=== PATIENT | female | born 1965 | race Caucasian/White ===

== ENCOUNTER 2024-10-16 11:56 | Emergency (ER) | payer OTHER, SELFPAY ==
[2024-10-16 11:57] VITALS: BMI 31.4
[2024-10-16 12:04] VITALS: BP 151/86; PULSE 89; RESP 20; TEMP 36.6; O2SAT 99; BMI 32.3
--- NOTE | 2024-10-16 12:07 | EKG_ITS ---
[facility] Test Date: 2024-10-16 Pat Name: ARINA RILEY Department: Room: - Gender: Female Police Inspector: : 1965 Requested By: Galo Flower (SAMUEL) Order Number: [id number] Reading MD: Galo Flower (TOE FORMER) Measurements Intervals Thompson Rate: 80 P: 76 CA: 208 QRS: 57 QRSD: 85 T: 59 QT: 387 QTc: 448 Interpretive Statements SINUS RHYTHM No previous ECG available for comparison /store/S0/[id number]/ecg/[id number].pdf
--- NOTE | 2024-10-16 12:07 | XR_ITS ---
Examination: PA lateral chest 2 views TECHNIQUE: Upright PA lateral chest 2 views Exam date and time: October 16, 2024 1233 hours Comparison 08/04/2022 INDICATIONS: Chest pain beginning 2 days ago. FINDINGS: Normal heart size Lungs are clear. The osseous structures are intact IMPRESSION: No active disease
--- NOTE | 2024-10-16 12:08 | PD.EDRME ---
Rapid Medical Screening Exam RME Arrival date/time: 10/16/24 11:56 59-year-old female presents to the emergency department complaints of abdominal pain and chest pain Chief Complaint: Chest Pain Time Seen by Provider: 10/16/24 12:05 Vital signs: Vital Signs Temperature 97.8 F 10/16/24 12:04 Pulse Rate 89 10/16/24 12:04 Respiratory Rate 20 10/16/24 12:04 Blood Pressure 151/86 H 10/16/24 12:04 Pulse Oximetry (%) 99 10/16/24 12:04 Oxygen Delivery Method Room Air 10/16/24 12:04
[2024-10-16] MEDS: ONDANSETRON ODT 4 MG TABRAP PO ×2 (12:18→15:53)
[2024-10-16 12:35] LABS: Basophils % (Auto) 0 % (0-2.5); Eosinophils % (Auto) 0 % (0-10); Hematocrit 44.6 % (36.0-46.0); Hemoglobin 15.3 g/dL (12.0-16.0); Immature Granulocytes % (Auto) 0 % (0-0); Immature Granulocytes Auto 0.07 Thou/mm3 (0.00-0.00); Lymphocytes # (Auto) 1.7 Thou/mm3 (1.0-4.8); Lymphocytes % (Auto) 11 % (10-50); Mean Corpuscular HGB Conc 34.3 g/dl (31.0-37.0); Mean Corpuscular Hemoglobin 30.1 pg (25.0-35.0); Mean Corpuscular Volume 88 fL (80-100); Monocytes # (Auto) 0.9 Thou/mm3 (0.0-0.8); Monocytes % (Auto) 6 % (0-12); Neutrophils # (Auto) 13.7 Thou/mm3 (1.8-7.7); Neutrophils % (Auto) 83 % (37-80); Nucleated Red Blood Cell % 0 /100 WBC (0); Platelet Count 294 Thou/mm3 (140-440); RDW Standard Deviation 42.5 fL (36.4-46.3); Red Blood Count 5.09 Miln/mm3 (4.00-5.20); White Blood Count 16.5 Thou/mm3 (3.6-11.0)
[2024-10-16 12:53] LABS: INR 1.1 (0.9-1.3); Partial Thromboplastin Time 25.6 Seconds (22.0-36.0); Prothrombin Time 11.7 Seconds (9.0-12.2)
[2024-10-16 12:56] LABS: B-Type Natriuretic Peptide 31 pg/mL (0-100)
[2024-10-16 12:58] LABS: Alanine Aminotransferase 31 U/L (10-49); Albumin, Serum 4.8 gm/dL (3.5-5.0); Albumin/Globulin Ratio 1.7 (1.2-2.2); Alkaline Phosphatase 87 U/L (46-116); Anion Gap 8 (7-16); Aspartate Amino Transferase 23 U/L (0-34); BUN/Creatinine Ratio 14 Ratio (12-20); Bilirubin,Total 0.6 mg/dL (0.3-1.2); Blood Urea Nitrogen 11 mg/dL (9-23); Calcium 9.9 mg/dL (8.3-10.6); Calcium (Corrected) 9.9 mg/dL (8.5-10.1); Carbon Dioxide 26.7 mMol/L (20.0-31.0); Chloride 103 mMol/L (98-107); Creatinine (Component) 0.8 mg/dL (0.6-1.3); Globulin 2.8 gm/dL (2.3-3.5); Glucose 131 mg/dL (74-106); Lipase 115 U/L (12-53); Magnesium 2.1 mg/dL (1.6-2.6); Osmolality,Calculated 277 (275-295); Potassium 3.6 mMol/L (3.4-5.1); Sodium 138 mMol/L (136-145); Total Protein 7.6 gm/dL (5.7-8.2); Troponin I < 0.020 ng/mL (0.0-0.045); eGFR > 60 See Note
[2024-10-16 13:15] LABS: Collection Type, Urine Clean Catch
[2024-10-16 13:25] LABS: Amphetamine/Methamp Scrn,U Negative (Negative); Barbiturate Screen,Urine Negative (Negative); Benzodiazepines Screen,Urine Negative (Negative); Benzoylecgonine Screen, Ur Negative (Negative); Fentanyl Screen,Urine Negative (Negative); Opiate Screen,Urine Negative (Negative); THC Screen,Urine Negative (Negative)
[2024-10-16 13:33] LABS: Bilirubin,Urine Negative (Negative); Blood,Urine Negative (Negative); Clarity,Urine Clear (Clear/Hazy); Color,Urine Yellow (Lt Yel-Yel); Glucose, Urine Negative (Negative); Ketones,Urine 3+ (Negative); Leukocyte Esterase,Urine Positive (Negative); Nitrite,Urine Negative (Negative); Protein,Urine 1+ (Neg - Trace); RBC,Urine 3 /hpf (0-3); Specific Gravity,Urine 1.029 (1.001-1.035); Squamous Epithelial Cell,Urine < 1 /hpf (0-5); Urobilinogen,Urine Negative mg/dL (0.0-1.0); WBC,Urine 6 /hpf (0-5)
[2024-10-16 14:45] VITALS: BP 153/94; PULSE 81; RESP 20; TEMP 36.8; O2SAT 100
--- NOTE | 2024-10-16 15:17 | PD.EDADULT ---
ED General RME/HPI General Chief complaint: Chest Pain Stated complaint: VOMITING COFFEE GROUNDS CHEST PAIN SINCE YESTERDAY Time Seen by Provider: 10/16/24 12:05 Arrival date/time: 10/16/24 11:56 CC: Epigastric right upper and left upper quadrant abdominal pain intermittent chest pain with nausea vomiting HPI onset yesterday no other family members ill with similar symptoms denies fever. No OTC medicines taken. Currently the patient continues to be nauseated but no chest pain. RME / HPI RME / HPI narrative: 10/16/24 11:56 59-year-old female presents to the emergency department complaints of abdominal pain and chest pain Related Data Home Medications ?Medication ?Instructions ?Recorded ?Confirmed amlodipine 2.5 mg tablet 2.5 mg PO DAILY 02/09/23 02/09/23 melatonin 5 mg tablet 5 mg PO HS PRN Insomnia 02/09/23 02/09/23 pravastatin 10 mg tablet 10 mg PO DAILY 02/09/23 02/09/23 Previous Rx's ?Medication ?Instructions ?Recorded meloxicam 7.5 mg tablet 7.5 mg PO QDAY #14 tabs 10/16/24 ondansetron 4 mg disintegrating 4 mg PO Q8H #14 tabs 10/16/24 tablet Allergies Allergy/AdvReac Type Severity Reaction Status Date / Time hydrocodone Allergy Severe Palpitation Verified 10/16/24 11:59 s mold Allergy Severe Hives Verified 10/16/24 11:59 acetaminophen [From Vicodin] Allergy Mild headache, Verified 10/16/24 11:59 tachycardia codeine Allergy Unknown Palpitation Verified 10/16/24 11:59 s Review of Systems Review of Systems Narrative Review of Systems: GEN: No fever, no chills, no weight loss EYES: No discharge, no visual changes, no pain HEENT: No ear pain, no congestion, no sore throat PULM: No shortness of breath, no cough, no congestion CV: No chest pain, no dyspnea on exertion, no palpitations GI: No nausea, no vomiting, no diarrhea, + pain, no constipation : No frequency, no urgency, no dysuria MUSC/SKEL: No joint pain, no back pain SKIN: No rash PSYCH: No hallucinations, no depression HEME/LYMPH: No easy bleeding or bruising tendencies NEURO: No weakness, no headache ED Exam Narrative Physical exam: [General: Obese mild discomfort not in any acute distress Head normocephalic HEENT: Within acceptable limits Neck is supple nontender Chest equal chest rise nontender to palpation Respiratory: Clear to auscultation no wheezes crackles or rubs CV: Rate rhythm is regular no murmurs rubs or clicks Abdomen is distended secondary to body habitus soft, diffuse tenderness throughout the upper abdomen from right to epigastric to left no reflexive guarding or rebound tenderness. Back: No CVA tenderness no spinous process tenderness from cervical spine thoracic and lumbar spine Skin: Intact no petechiae rash induration ulceration or crepitus Extremities: Moving all extremity against resistance cap refill less than 2 seconds neurosensory intact Neuro: Awake alert oriented x3 Glascow coma 15 no focal deficits] Course Quality Measures none Orders Category Date Time Status EKG (ED ONLY) *Do not use* NOW Care 10/16/24 12:07 Completed EKG (ED Only) Stat Exams 10/16/24 12:07 Draft US gall bladder Stat Exams 10/16/24 15:20 Completed XR chest 2V Stat Exams 10/16/24 12:07 Completed B-Type Natriuretic Peptide Stat Lab 10/16/24 12:22 Completed CBC Stat Lab 10/16/24 12:22 Completed Comprehensive Metabolic Panel Stat Lab 10/16/24 12:22 Completed Drug Screen,Urine Stat Lab 10/16/24 13:00 Completed Lipase Stat Lab 10/16/24 12:22 Completed Magnesium Stat Lab 10/16/24 12:22 Completed Partial Thromboplastin Time Stat Lab 10/16/24 12:22 Completed Prothrombin Time with INR Stat Lab 10/16/24 12:22 Completed Troponin I Stat Lab 10/16/24 12:22 Completed Urinalysis Stat Lab 10/16/24 13:00 Completed Ondansetron Odt [Zofran Odt] Med 10/16/24 12:07 Discontinued 4 mg PO X1 ONE Ondansetron Odt [Zofran Odt] Med 10/16/24 15:19 Discontinued 4 mg PO X1 ONE Vital Signs Vital signs: Vital Signs Temperature 97.8 F 10/16/24 12:04 Pulse Rate 89 10/16/24 12:04 Respiratory Rate 20 10/16/24 12:04 Blood Pressure 151/86 H 10/16/24 12:04 Pulse Oximetry (%) 99 10/16/24 12:04 Oxygen Delivery Method Room Air 10/16/24 12:04 [facility] Patient data External records reviewed:: [facility] previous records Clinical information provided by:: patient Social determinants that could affect healthcare access:: none Patient has the following chronic illnesses:: Hypertension How is presenting disease/condition affected by chronic disease/condition?: uneffected by Evaluation data The following diagnostics were reviewed and interpreted by me:: lab results, radiology exam(s) and EKG tracing(s) Lab and/or radiology exams considered but not ordered:: EKG performed at 1221 shows a ventricular rate of 80 AK interval 208 QRS of 85 QTc of 423 this is normal sinus rhythm. CBC shows leukocytosis 16.5 no anemia thrombocytopenia CMP shows mildly elevated glucose level no other electrolyte imbalances renal impairment transaminitis or T. bili elevation Lipase is mildly elevated Ultrasound of the gallbladder shows cholelithiasis without cholecystitis. Interpretation Summary: May be pancreatitis however the gallstones also may be causing the pain patient fulton continues to point to the center chest as a cause of her pain. He is afebrile nontoxic-appearing will discharge the patient on meloxicam with Zofran patient advised of his worsening of symptoms return the emergency room medially for further evaluation Medications Medications considered but not ordered:: None Medication administrations:: Medication Administration History Discontinued Medications Ondansetron HCl (Ondansetron Odt 4 Mg Tabrap) 4 mg PO X1 ONE; Protocol Stop: 10/16/24 12:08 Last Admin: 10/16/24 12:18 Dose: 4 mg Documented By: MERY Ondansetron HCl (Ondansetron Odt 4 Mg Tabrap) 4 mg PO X1 ONE; Protocol Stop: 10/16/24 15:20 Last Admin: 10/16/24 15:53 Dose: 4 mg Documented By: OBED None Consultations Consultation(s) initiated? (list below): No Diagnosis Differential Diagnosis ED Complaint MDM: Pancreatitis cholecystitis cholelithiasis ACS MO Most likely diagnosis given after review of the tests above:: Chest pain cholelithiasis Admission Indicated Admission indicated?: not indicated Explain why admission is indicated or not indicated:: Stable for outpatient follow-up Admission Request Was there a request for admission?: No Disposition Plan Disposition Plan: Discharge Discharge Attestation Discharge Attestation: The patient and all family members were given an opportunity to ask questions and understood the discharge instructions. Discharge instructions specifically effects, indications for sooner follow up or return to the emergency department, and the expected course of current diagnosis. Patient condition: Stable Medical Decision Making Differential Diagnosis Differential Diagnosis: Pancreatitis cholecystitis cholelithiasis ACS MO Lab Data 10/16/24 12:22 10/16/24 12:22 Labs: Lab Results 10/16/24 10/16/24 Range/Units 12:22 13:00 WBC 16.5 H (3.6-11.0) Thou/mm3 RBC 5.09 (4.00-5.20) Miln/mm3 Hgb 15.3 (12.0-16.0) g/dL Hct 44.6 (36.0-46.0) % MCV 88 (80-100) fL MCH 30.1 (25.0-35.0) pg MCHC 34.3 (31.0-37.0) g/dl RDW Std Deviation 42.5 (36.4-46.3) fL Plt Count 294 (140-440) Thou/mm3 Neut % (Auto) 83 H (37-80) % Lymph % (Auto) 11 (10-50) % [place] % (Auto) 6 (0-12) % Eos % (Auto) 0 (0-10) % Baso % (Auto) 0 (0-2.5) % Neut # (Auto) 13.7 H (1.8-7.7) Thou/mm3 Lymph # (Auto) 1.7 (1.0-4.8) Thou/mm3 [place] # (Auto) 0.9 H (0.0-0.8) Thou/mm3 Eos # (Auto) 0.0 (0.0-0.5) Thou/mm3 Baso # (Auto) 0.0 (0.0-0.2) Thou/mm3 Immature Gran # (Auto) 0.07 H (0.00-0.00) Thou/mm3 Absolute Nucleated RBC 0.00 (0.00-0.00) Thou/mm3 Immature Gran % 0 (0-0) % Nucleated RBC % 0 (0) /100 WBC PT 11.7 (9.0-12.2) Seconds INR 1.1 (0.9-1.3) APTT 25.6 (22.0-36.0) Seconds Sodium 138 (136-145) mMol/L Potassium 3.6 (3.4-5.1) mMol/L Chloride 103 (98-107) mMol/L Carbon Dioxide 26.7 (20.0-31.0) mMol/L Anion Gap 8 (7-16) BUN 11 (9-23) mg/dL Creatinine 0.8 (0.6-1.3) mg/dL Estim Creat Clear Calc 87.0 (>60) mL/min eGFR > 60 (60 - ) See Note BUN/Creatinine Ratio 14 (12-20) Ratio Glucose 131 H (74-106) mg/dL Calculated Osmolality 277 (275-295) Calcium 9.9 (8.3-10.6) mg/dL Corrected Calcium 9.9 (8.5-10.1) mg/dL Magnesium 2.1 (1.6-2.6) mg/dL Total Bilirubin 0.6 (0.3-1.2) mg/dL AST 23 (0-34) U/L ALT 31 (10-49) U/L Alkaline Phosphatase 87 (46-116) U/L Troponin I < 0.020 (0.0-0.045) ng/mL B-Natriuretic Peptide 31 (0-100) pg/mL Total Protein 7.6 (5.7-8.2) gm/dL Albumin 4.8 (3.5-5.0) gm/dL Globulin 2.8 (2.3-3.5) gm/dL Albumin/Globulin Ratio 1.7 (1.2-2.2) Lipase 115 H (12-53) U/L Ur Collection Type Clean Catch Urine Color Yellow (Lt Yel-Yel) Urine Clarity Clear (Clear/Hazy) Urine pH 6.0 (5.0-7.0) Ur Specific [place] 1.029 (1.001-1.035) Urine Protein 1+ A (Neg - Trace) Urine Glucose (UA) Negative (Negative) Urine Ketones 3+ A (Negative) Urine Blood Negative (Negative) Urine Nitrite Negative (Negative) Urine Bilirubin Negative (Negative) Urine Urobilinogen (Auto) Negative (0.0-1.0) mg/dL Ur Leukocyte Esterase Positive (Negative) Urine RBC 3 (0-3) /hpf Urine WBC 6 H (0-5) /hpf Ur Squamous Epith Cells < 1 (0-5) /hpf Urine Bacteria None (None) Urine Opiates Screen Negative (Negative) Urine Fentanyl Screen Negative (Negative) Ur Barbiturates Screen Negative (Negative) U Amphetamin/Meth Scrn Negative (Negative) U Benzodiazepines Scrn Negative (Negative) U Cocaine Metab Screen Negative (Negative) U Marijuana (THC) Screen Negative (Negative) Discharge Plan Plan Patient Disposition: HOME (Self Care) Patient condition on transfer: Stable Prescriptions/Referrals Prescriptions/Med Rec: New meloxicam 7.5 mg tablet 7.5 mg PO QDAY Qty: 14 0RF ondansetron 4 mg tablet,disintegrating 4 mg PO Q8H Qty: 14 0RF No Action amlodipine 2.5 mg tablet 2.5 mg PO DAILY Patient Comments: TAKE 1 TABLET BY MOUTH EVERY DAY pravastatin 10 mg tablet 10 mg PO DAILY Patient Comments: TAKE 1/2 TABLET BY MOUTH EVERY DAY melatonin 5 mg Tablet 5 mg PO HS PRN (Reason: Insomnia) Referrals: Caren Kaba PA-C [Primary Care Provider] - In 1 week Problem List Clinical Impression: Chest pain, Cholelithiasis Patient/Caregiver Discharge Instructions Education Materials: ED Chest Pain, Uncertain Cause, What Are Gallstones Additional Instructions: Follow-up with your primary care provider if there is worsening of symptoms consider returning to the emergency room for reevaluation. Print Language: Faroese Stand Alone Forms: Mary Award Info., Patient Portal Info Letter, Work/School Release FAITH/TORSTEN Supervising Physician FAITH/TORSTEN Supervising Physician: Cody Orellana ENP
--- NOTE | 2024-10-16 15:20 | XR_ITS ---
Examination: Abdomen sonogram, Limited Date and time of exam: October 16, 2024 1647 hrs. Indications: Onset right upper abdominal pain beginning 2 days ago Technique: Real-time thakkar scale transabdominal sonographic images of the upper abdomen obtained. Findings: Multiple gallstones Gallbladder wall 0.2 cm no edema Common bile duct 0.5 cm Pancreatic head 3.1 cm Liver 16.5 cm fatty infiltration no focal liver lesions Normal hepatopedal portal venous oh Patent IVC Impression: Cholelithiasis, negative for cholecystitis Mild hepatomegaly fatty liver
[2024-10-16 17:36] VITALS: BP 175/74; PULSE 64; RESP 18; TEMP 36.9; O2SAT 97
[2024-10-16] MEDS: IBUPROFEN TAB 600 MG TABLET PO (19:58)
== END 2024-10-16 19:59 | disposition home or self-care (01) ==
PROVIDERS: Nurse Practitioner Primary Care; Emergency Provider Emergency Medicine; PCP Physician Assistant
DX: K80.20 Calculus of gallbladder without cholecystitis without obstruction (principal); R07.9 Chest pain, unspecified; I10 Essential (primary) hypertension
CPT/HCPCS: 36415; 71046; 76705; 80053; 80307; 81001; 83690; 83735; 83880; 84484; 85025; 85610; 85730; 93005; 99284; Q0162; A9270

== ENCOUNTER 2024-10-17 18:26 | Inpatient (IN) | payer BC, SELFPAY ==
[2024-10-17 18:47] VITALS: BP 129/87; PULSE 96; RESP 18; TEMP 37.2; O2SAT 96; BMI 32.3
--- NOTE | 2024-10-17 18:55 | EDRME_ITS ---
Rapid Medical Screening Exam [facility] Arrival date/time: 10/17/24 18:26 59F with history of esophageal disorder (followed by Dr. Ascencio and some specialist in [place]) presents to ED with several days of epigastric/chest pain and feels like a food bolus is stuck in her esophagus. Patient was here yesterday for the same thing with normal cardiac work-up except for elevated lipase. Chief Complaint: Dental/Oral/Throat Vital signs: Vital Signs Temperature 99 F 10/17/24 18:47 Pulse Rate 96 10/17/24 18:47 Respiratory Rate 18 10/17/24 18:47 Blood Pressure 129/87 H 10/17/24 18:47 Pulse Oximetry (%) 96 10/17/24 18:47 Oxygen Delivery Method Room Air 10/17/24 18:47
[2024-10-17] MEDS: GLUCAGON INJ 1 MG VIAL IM (19:46)
[2024-10-17] MEDS: ONDANSETRON INJ 2 MG/ML INJ 2 ML 4 MG IM (19:49)
[2024-10-17 19:56] LABS: Basophils # (Auto) 0.1 Thou/mm3 (0.0-0.2); Basophils % (Auto) 0 % (0-2.5); Eosinophils % (Auto) 0 % (0-10); Hematocrit 43.5 % (36.0-46.0); Immature Granulocytes % (Auto) 0 % (0-0); Immature Granulocytes Auto 0.05 Thou/mm3 (0.00-0.00); Lymphocytes # (Auto) 2.5 Thou/mm3 (1.0-4.8); Lymphocytes % (Auto) 17 % (10-50); Mean Corpuscular HGB Conc 34.5 g/dl (31.0-37.0); Mean Corpuscular Hemoglobin 30.1 pg (25.0-35.0); Mean Corpuscular Volume 87 fL (80-100); Monocytes % (Auto) 7 % (0-12); Neutrophils # (Auto) 10.9 Thou/mm3 (1.8-7.7); Neutrophils % (Auto) 75 % (37-80); Nucleated Red Blood Cell % 0 /100 WBC (0); Platelet Count 308 Thou/mm3 (140-440); RDW Standard Deviation 42.5 fL (36.4-46.3); Red Blood Count 4.98 Miln/mm3 (4.00-5.20); White Blood Count 14.5 Thou/mm3 (3.6-11.0)
[2024-10-17 20:17] LABS: Alanine Aminotransferase 30 U/L (10-49); Albumin, Serum 4.9 gm/dL (3.5-5.0); Albumin/Globulin Ratio 1.8 (1.2-2.2); Alkaline Phosphatase 84 U/L (46-116); Anion Gap 8 (7-16); Aspartate Amino Transferase 22 U/L (0-34); BUN/Creatinine Ratio 17 Ratio (12-20); Bilirubin,Total 0.6 mg/dL (0.3-1.2); Blood Urea Nitrogen 17 mg/dL (9-23); Calcium 9.8 mg/dL (8.3-10.6); Calcium (Corrected) 9.8 mg/dL (8.5-10.1); Carbon Dioxide 27.7 mMol/L (20.0-31.0); Chloride 100 mMol/L (98-107); Estimated Creatinine Clearance 69.6 mL/min (>60); Globulin 2.7 gm/dL (2.3-3.5); Glucose 94 mg/dL (74-106); Lipase 200 U/L (12-53); Osmolality,Calculated 273 (275-295); Potassium 3.3 mMol/L (3.4-5.1); Sodium 136 mMol/L (136-145); Total Protein 7.6 gm/dL (5.7-8.2); Troponin I < 0.020 ng/mL (0.0-0.045); eGFR > 60 See Note
[2024-10-17 22:15] VITALS: BP 160/93; PULSE 96; RESP 20; TEMP 37.6; O2SAT 100
--- NOTE | 2024-10-17 22:33 | EDNOTE_ITS ---
ED Dental RME/HPI General Chief complaint: Dental/Oral/Throat Stated complaint: FEELS FOOD STUCK IN ESOPHAGUS Arrival date/time: 10/17/24 18:26 RME / HPI RME / HPI Narrative: 10/17/24 18:26 59F with history of esophageal disorder (followed by Dr. Ascencio and some specialist in [place]) presents to ED with several days of epigastric/chest pain and feels like a food bolus is stuck in her esophagus. Patient was here yesterday for the same thing with normal cardiac work-up except for elevated lipase. ------- Dr. Hatch's Main ED Evaluation: 59yo female with pmhx esophageal disorder, fatty liver presents to the ED for a chief complaint of epigastric pain x 4 days. Patient states her pain has been intermittent, stating the pain was initially burning in nature, but is now stabbing in nature. She endorses associated chest pain x 2 days, N/V x2, decreased appetite, and intermittent shortness of breath. She states it feels like there's something stuck in her throat. She denies any diarrhea, fever, chills, cough, sweating, back pain, UTI symptoms, headache, dizziness, UTI symptoms or any other associated symptoms. She denies any falls or injuries. She denies any tobacco, alcohol or illicit drug use. PCP: Sheryl Related Data Home Medications ?Medication ?Instructions ?Recorded ?Confirmed amlodipine 2.5 mg tablet 2.5 mg PO DAILY 02/09/23 02/09/23 melatonin 5 mg tablet 5 mg PO HS PRN Insomnia 02/09/23 02/09/23 pravastatin 10 mg tablet 10 mg PO DAILY 02/09/23 02/09/23 Previous Rx's ?Medication ?Instructions ?Recorded meloxicam 7.5 mg tablet 7.5 mg PO QDAY #14 tabs 10/16/24 ondansetron 4 mg disintegrating 4 mg PO Q8H #14 tabs 10/16/24 tablet Allergies Allergy/AdvReac Type Severity Reaction Status Date / Time hydrocodone Allergy Severe Palpitation Verified 10/16/24 11:59 s mold Allergy Severe Hives Verified 10/16/24 11:59 acetaminophen [From Vicodin] Allergy Mild headache, Verified 10/16/24 11:59 tachycardia codeine Allergy Unknown Palpitation Verified 10/16/24 11:59 s Review of Systems Review of Systems Systems Reviewed: All systems reviewed, normal except as documented Narrative Review of Systems: Gen: No fever, no chills, no weight loss, + decreased appetite EYES: No discharge, no visual changes, no pain HEENT: No ear pain, no congestion, no sore throat PULM: + shortness of breath, no cough, no congestion CV: + chest pain, no dyspnea on exertion, no palpitations GI: + nausea, + vomiting, no diarrhea, + pain, no constipation : No frequency, no urgency, no dysuria Musc/skel: No joint pain, no back pain Skin: No rash. Warm and dry. Psyc: No hallucinations, no depression Heme/Lymph: No easy bleeding or bruising tendencies Neuro: No weakness, no headache Past Medical History Past Medical History NEUROLOGIC: Negative Neurological Disorders or Seizures CARDIAC: Positive Cardiac Disorders, Hypercholesterolemia and Hypertension; Negative Congestive Heart Failure RESPIRATORY: Positive Asthma; Negative Chronic Obstructive Pulmonary Disease (COPD) or Sleep Apnea GASTROINTESTINAL: Positive Gastrointestinal Disorders (fatty liver) GENITOURINARY: Negative Genitourinary Disorders or Renal Disease MUSCULOSKELETAL: Positive Musculoskeletal Disorders and Arthritis ENDOCRINE: Negative Endocrine Disorders, Diabetes Mellitus Type 1 or Diabetes Mellitus Type 2 HEMATOLOGIC: Negative Blood Disorders PSYCHO/SOCIAL: Positive Anxiety OTHER HISTORY: Positive Chicken Pox, Measles and Mumps; Negative Blood Transfusions or Anesthesia Reactions Family History FAMILY HISTORY: Positive Family Cancer and Family Surgery Surgical History SURGICAL: Positive Nose Surgery and Section; Negative Cardiac Surgery Social History SMOKING STATUS: Never smoker SUBSTANCE USE: does not use ED Exam Narrative Physical exam: GEN. APPEARANCE: Patient is alert awake oriented x3 under moderate pain distress; she cannot find a comfortable position. Patient is anxious. VITALS: All vitals were reviewed and the pulse ox is 100% on room air, which is normal according to my interpretation. HEENT: Normocephalic, atraumatic and nontender. Pupils are equal and reactive to light and accommodation. Oral mucosa are moist. NECK: Supple, nontender, no meningismus, no JVD. CHEST: Nontender on palpation, no deformity and no crepitus. CARDIOVASCULAR: Heart regular rhythm no murmur or gallop rub or extra beats; not tachycardic. LUNGS: Clear to auscultation bilaterally with symmetrical chest rise. No laboring tachypnea or wheezing. No intercostal subcostal retraction. No rales and no rhonchi. ABDOMEN: Soft, flat, definitely tender at the epigastric area on deep palpation, less tenderness at the RUQ, no guarding or rebound tenderness. There are no a bnormal masses palpated. GENITALIA: Not examined. RECTAL EXAM: Not done. EXTREMITIES: Nontender. No edema. No cyanosis. Patient is able to move all 4 extremities well. SKIN: Warm and dry, no rashes noted. MUSCULOSKELETAL: No lumbar or midline bony tenderness. There is no CVA tenderness. No paraspinal muscle spasm or tenderness. NEURO: Cranial nerves II through XII grossly intact. There is no focalization. GCS is 15. PSYCHIATRIC: Patient is in anxious mood and affect, cooperative. LYMPHATICS: No major lymphadenopathy noted. Course Quality Measures none Orders Category Date Time Status Blood glucose [Bedside Blood Glucose] NOW Care 10/17/24 18:[address] Screening NOW Care 10/18/24 00:[address] chest abdomen pelvis w Stat Exams 10/18/24 00:23 Taken CBC Stat Lab 10/17/24 19:43 Completed CMP [Comprehensive Metabolic Panel] Stat Lab 10/17/24 19:43 Completed Lipase Stat Lab 10/17/24 19:43 Completed Troponin I Stat Lab 10/17/24 19:43 Completed Glucagon Inj Med 10/17/24 18:54 Discontinued 1 mg IM X1 ONE Morphine Inj Med 10/18/24 00:23 Discontinued 5 mg IVP X1 ONE Ondansetron Inj [Zofran Inj] Med 10/17/24 19:40 Discontinued 4 mg IM X1 ONE Ondansetron Inj [Zofran Inj] Med 10/18/24 00:23 Discontinued 4 mg IV X1 ONE Sodium Chloride 0.9% 1000 ml [Ns] 1,000 ml Med 10/18/24 00:23 Discontinued IV 999 mls/hr Vital Signs Vital signs: Vital Signs Temperature 99 F 10/17/24 18:47 Pulse Rate 96 10/17/24 18:47 Respiratory Rate 18 10/17/24 18:47 Blood Pressure 129/87 H 10/17/24 18:47 Pulse Oximetry (%) 96 10/17/24 18:47 Oxygen Delivery Method Room Air 10/17/24 18:47 Dental / Oral MDM Narrative MDM Narrative:: Scribe Attestation: 10/17/24 - I, Leta Daniel, am scribing for and in the presence of Dr. Hatch. Patient comes in by private vehicle due to upper abdominal pain for the last 4 days on and off without radiation to her back. She says that yesterday the pain was stabbing and today it is more burning. She had chest pain yesterday but not today. She says that the pain in the epigastric area radiates to her retrosternal area. That causes her shortness of breath but no sweating. She denies any fever chills, coughing or hemoptysis. She denies any fall or injuries or loss of consciousness. She denies UTI symptoms or hematuria. She denies headache or dizziness. Patient has vomited twice within the last 4 days and she has been mainly nauseated. No diarrhea. No hematemesis melena. Looking at her past medical history, patient was here yesterday, evaluated for chest pain and discharged home with an elevated lipase of 115. Today, her lipase is 200 and her pain is typical of pancreatitis type of pain. She also says that she feels like something is stuck in her esophagus because she has had chronic esophageal problems and she had to have dilation in the past. Patient absolutely denies being a heavy drinker; as a matter fact she says that she drinks only very sporadically. I ordered a CT of the chest abdomen and pelvis with IV contrast and we will give her painkillers. At 4 AM, her CAT scan of the chest abdomen and pelvis with IV contrast came back pretty unremarkable except for cholelithiasis and no intrathoracic pathology. Therefore I discussed the case with Dr. Carrizales, PGY2, who will admit her to the hospital. Provider Notation: Although this document has been carefully reviewed, there may still be some phonetic and other typographical errors. These errors are purely grammatical due to imperfections in the software program and should not be construed in any way to compromise the substance of the patient's medical care during this visit. Patient data External records reviewed:: [facility] previous records (Per chart review, patient was seen here on 10/16/24 for chest pain.) Clinical information provided by:: patient Social determinants that could affect healthcare access:: none Patient has the following chronic illnesses:: HTN, HLD, anxiety How is presenting disease/condition affected by chronic disease/condition?: uneffected by Evaluation data The following diagnostics were reviewed and interpreted by me:: lab results and radiology exam(s) Lab and/or radiology exams considered but not ordered:: none Interpretation Summary: See above under MDM narrative. ---- [facility] Preliminary Report Draft Patient: ARINA RILEY. Record#: [id number] Birthdate: 1965 Age/Sex: 59 / F Location: [facility] Attending Dr: Ordering Physician: Date of Service: Procedure(s): Accession Number(s): cc: ~ CT scan of the chest, abdomen and pelvis with intravenous contrast (axial sections with sagittal and coronal reformats) October 18, 2024 0117 hours Clinical History: Chest pain and epigastric pain; r/o pancreatitis Compared with the prior CT abdomen and pelvis study dated September 04, 2010. Findings: The lungs are clear. There is no pleural effusion or pneumothorax. The aorta is unremarkable without evidence of dissection or aneurysm. No evidence of mediastinal mass or lymphadenopathy. There is no pericardial effusion. Fatty infiltration of the liver is noted. Multiple calculi are noted within the gallbladder, without evidence of gallbladder wall thickening or pericholecystic fluid. There is a 1.1 cm right renal cortical cyst with punctate calcification. The spleen, pancreas, adrenals and left kidney are unremarkable. Fluid filled small bowel loops are noted. No evidence of bowel dilatation. The appendix is not visualized. There is moderate wall thickening of the distal body and antropyloric region of the stomach. There are multiple colonic diverticula without evidence of diverticulitis. The urinary bladder is partially distended. There is no free fluid, free air or abscess. A small fat-containing umbilical hernia is present. Mild degenerative changes are identified in the spine. Impression: No evidence of acute intrathoracic pathology. Cholelithiasis. Recommend further evaluation with sonography, if clinically indicated. Moderate wall thickening of the distal body and antropyloric region of the stomach, which may represent gastritis in the appropriate clinical setting. Recommend clinical correlation. Other findings as described above. Report Electronically Signed By: Jose Kong 10/18/2024 3:38:30 AM [EST] Medications / Prescriptions Medications or Prescriptions considered but not ordered:: none Medication administrations:: Medication Administration History Discontinued Medications Glucagon (Glucagon Inj 1 Mg Vial) 1 mg IM X1 ONE Stop: 10/17/24 18:55 Last Admin: 10/17/24 19:46 Dose: 1 mg Documented By: CVL Sodium Chloride (Ns) 1,000 mls @ 999 mls/hr IV .Q1H1M ONE Stop: 10/18/24 01:23 Last Infusion: 10/18/24 02:00 Dose: Infused Documented By: Admin: 10/18/24 00:41 Dose: 999 mls/hr Documented By: CB Morphine Sulfate (Morphine Sulf Inj 10 Mg/Ml Vial) 5 mg IVP X1 ONE Stop: 10/18/24 00:24 Last Admin: 10/18/24 00:41 Dose: 5 mg Documented By: CB Ondansetron HCl (Ondansetron Inj 2 Mg/Ml Inj 2 Ml) 4 mg IM X1 ONE; Protocol Stop: 10/17/24 19:41 Last Admin: 10/17/24 19:49 Dose: 4 mg Documented By: CVL Ondansetron HCl (Ondansetron Inj 2 Mg/Ml Inj 2 Ml) 4 mg IV X1 ONE; Protocol Stop: 10/18/24 00:24 Last Admin: 10/18/24 00:41 Dose: 4 mg Documented By: VERA see above Consultations Consultation(s) initiated? (list below): Yes Diagnosis Dental Differential Diagnosis: other (biliary colic, cholecystitis, ascending cholangitis, pancreatitis, coronary artery syndrome, pyelonephritis) Most likely diagnosis given after review of the tests above:: see below Admission Indicated Admission indicated?: indicated Admission Request Was there a request for admission?: Yes Admission Attestation Admission request attestation: Discussed case with [] from Hospitalist service regarding admission. Discussed patients ED course, exam findings, labs, and radiology results. The Hospitalist [agrees,declines] to accept the patient for admission. Disposition Plan Disposition Plan: Admit Discharge Plan Plan Patient Disposition: Admit Acute Care w/in Hospital Prescriptions/Referrals Prescriptions/Med Rec: No Action meloxicam 7.5 mg tablet 7.5 mg PO QDAY Qty: 14 0RF ondansetron 4 mg tablet,disintegrating 4 mg PO Q8H Qty: 14 0RF amlodipine 2.5 mg tablet 2.5 mg PO DAILY Patient Comments: TAKE 1 TABLET BY MOUTH EVERY DAY pravastatin 10 mg tablet 10 mg PO DAILY Patient Comments: TAKE 1/2 TABLET BY MOUTH EVERY DAY melatonin 5 mg Tablet 5 mg PO HS PRN (Reason: Insomnia) Referrals: Caren Kaba PA-C [Primary Care Provider] - In 1 week Problem List Clinical Impression: Acute epigastric pain, Acute pancreatitis Patient/Caregiver Discharge Instructions Print Language: Vietnamese Stand Alone Forms: Mary Award Info., Patient Portal Info Letter
[2024-10-18] VITALS (8 sets, daily range): BP systolic 118–144; BP diastolic 71–88; PULSE 71–98; RESP 16–99; TEMP 36.5–37.4; O2SAT 98–100; BMI 33.5
--- NOTE | 2024-10-18 00:23 | XR_ITS ---
Examination: CT chest with intravenous contrast CT abdomen with intravenous contrast CT pelvis with intravenous contrast 2-D coronal and sagittal reconstructions Time of exam: October 18, 2024 0117 hrs. Indications: Onset chest pain shortness of breath epigastric pain today, patient states food stuck in the esophagus 3 days CTDI: vol (mGy) : 0.7 DLP: (mGycm): 1425 Technique: Multiple axial images of the chest, abdomen and pelvis with intravenous contrast, 3.0 mm slice thickness. Images obtained post intravenous injection Isovue 370 60 cc. 2-D sagittal and coronal reconstructions. Low dose protocols were performed. One or more of the following dose reduction techniques were used; automated exposure control, adjustment of the mA and/or KV according to patient size, use of iterative reconstruction technique. Findings: No thoracic aortic aneurysm dilatation No pulmonary artery emboli on this non-CTA study No paratracheal tracheobronchial or bronchopulmonary adenopathy No pneumonia pulmonary edema or pleural disease The esophagus shows wall thickening distally There is diffuse thickening of the gastric mucosa Liver is mildly irregular in contour with fatty infiltration Spleen is not enlarged Multiple gallstones Negative for pancreatitis 11 mm mass anterior right kidney with calcification which may represent a cyst Aorta normal size No bowel obstruction 17 mm fat-containing umbilical hernia Colonic diverticulosis Intact urinary bladder Impression: Abnormal thickening of the lower wall of the esophagus, consider reflux esophagitis Given the patient's presentation recommend standard fluoroscopically guided esophagram follow-up Severe gastritis pattern Cholelithiasis Recommend renal sonography to confirm 11 mm cyst anterior margin right kidney No CT findings of appendicitis or bowel obstruction
[2024-10-18] MEDS: ONDANSETRON INJ 2 MG/ML INJ 2 ML 4 MG IV ×3 (00:41→08:55)
[2024-10-18] MEDS: MORPHINE SULF INJ 10 MG/ML VIAL 5 MG IVP (00:41)
[2024-10-18] MEDS: SODIUM CHLORIDE 0.9% 1000 ML 1,000 ML 999 ML IV (00:41)
--- NOTE | 2024-10-18 03:39 | PRELIM_ITS ---
CT scan of the chest, abdomen and pelvis with intravenous contrast (axial sections with sagittal and coronal reformats) October 18, 2024 0117 hours Clinical History: Chest pain and epigastric pain; r/o pancreatitis Compared with the prior CT abdomen and pelvis study dated September 04, 2010.Findings: T he lungs are clear. There is no pleural effusion or pneumothorax. The aorta is unremarkable without e vidence of dissection or aneurysm. No evidence of mediastinal mass or lymphadenopathy. There is no pe ricardial effusion.Fatty infiltration of the liver is noted. Multiple calculi are noted within the ga llbladder, without evidence of gallbladder wall thickening or pericholecystic fluid. There is a 1.1 c m right renal cortical cyst with punctate calcification. The spleen, pancreas, adrenals and left kidn ey are unremarkable.Fluid filled small bowel loops are noted. No evidence of bowel dilatation. The ap pendix is not visualized. There is moderate wall thickening of the distal body and antropyloric regio n of the stomach. There are multiple colonic diverticula without evidence of diverticulitis. The urin barney bladder is partially distended. There is no free fluid, free air or abscess. A small fat-contain ing umbilical hernia is present. Mild degenerative changes are identified in the spine. Impression:No evidence of acute intrathoracic pathology.Cholelithiasis. Recommend further evaluation with sonograp hy, if clinically indicated. Moderate wall thickening of the distal body and antropyloric region of t he stomach, which may represent gastritis in the appropriate clinical setting. Recommend clinical cor relation.Other findings as described above. Report Electronically Signed By: Jose Kong 4 3:38:30 AM [EST]
--- NOTE | 2024-10-18 04:27 | PD.RESHP ---
Documentation for date of: 10/18/24 [facility] History of Present Illness History of present illness: A 59-year-old female with a history of esophageal dysmotility, managed by Dr. Ascencio an doctor in [place], presented to the ED with worsening epigastric pain radiating to her back, which she described as bandlike and severe (rated 10/10). The pain was constant, worsening when lying flat, and alleviated when turning to her side. Additionally, the patient reported the sensation of something stuck in her throat, consistent with her esophageal dysmotility, along with nausea, vomiting (twice), decreased appetite, poor oral intake, and intermittent shortness of breath. These symptoms began 5 days ago. The patient had presented to the ED the previous day with similar complaints, and an ultrasound of the gallbladder revealed cholelithiasis, without evidence of cholecystitis, and mild hepatomegaly with fatty liver. She was sent home with instructions to follow up with her primary care physician. However, her pain worsened, prompting her to return to the ED. On evaluation, her lab work showed leukocytosis (WBC 14.5), hypokalemia (potassium 3.3), and a mildly elevated lipase level (200), suggesting a possible pancreatic involvement. A CT abdomen was performed, revealing no acute intrathoracic pathology, cholelithiasis, and moderate wall thickening of the distal body and antrum-pyloric region of the stomach, which could indicate gastritis in the appropriate clinical context. In summary, the patient presents with worsening epigastric pain and vomiting, and though there is no evidence of acute cholecystitis or pancreatitis, the CT findings suggest possible gastritis or another gastric pathology. Further management may be guided by the clinical context and specialist evaluation. In ED patient received NS, Zofran, morphine 5 mg Patient met 2 out of 3 criteria, epigastric/bandlike pain along with elevated lipase. Patient most likely is having acute gastritis vs pancreatitis and will be admitted for this medical conditions treatment and management PMH as above PSH cholelithiasis Allergies codeine Meds none Social history denies alcohol, smoking, recreational drug use. Exam Vital Signs Temp Pulse Resp BP Pulse Ox O2 Del Method 99.3 F 98 18 118/71 100 Room Air 10/18/24 00:38 10/18/24 00:38 10/18/24 00:38 10/18/24 00:38 10/18/24 00:38 10/18/24 00:38 Narrative Exam GENERAL: no acute distress, AAO x3, well nourished. HEENT: Head AT/ NC. Mucous membranes moist. PERRL. NECK: Supple, no lymphadenopathy, no carotid bruits. CARDIOVASCULAR: RRR. Normal S1/S2, No m/r/g. No pitting edema of bilateral LEs. RESPIRATORY: CTAB. No wheezing, rhonchi, crackles. GASTROINTESTINAL: Abdomen soft, tender in epigastric area, negative Voss sign. Bowel sounds present in all 4 quadrants. MUSCULOSKELETAL:? No cyanosis or edema, no visible joint swelling. NEUROLOGICAL: CN II-XII grossly intact. No focal deficits. Sensation intact, symmetric. PSYCHIATRIC: Awake and alert, not agitated, normal mood and affect. INTEGUMENTARY: No obvious rashes, no jaundice, normal turgor. Results: Labs 10/18/24 04:41 10/18/24 04:41 Labs: Short CBC 10/17/24 Range/Units 19:43 WBC 14.5 H (3.6-11.0) Thou/mm3 Hgb 15.0 (12.0-16.0) g/dL Hct 43.5 (36.0-46.0) % Plt Count 308 (140-440) Thou/mm3 BMP 10/17/24 19:43 Sodium 136 Potassium 3.3 L Chloride 100 Carbon Dioxide 27.7 BUN 17 Creatinine 1.0 Glucose 94 Calcium 9.8 Cardiac Enzymes 10/17/24 Range/Units 19:43 Troponin I < 0.020 (0.0-0.045) ng/mL Liver Function 10/17/24 Range/Units 19:43 Total Bilirubin 0.6 (0.3-1.2) mg/dL AST 22 (0-34) U/L ALT 30 (10-49) U/L Alkaline Phosphatase 84 (46-116) U/L Albumin 4.9 (3.5-5.0) gm/dL Quality Measures Quality Measures none Medications Home Medications and Allergies Home Medications ?Medication ?Instructions ?Recorded ?Confirmed ?Type amlodipine 2.5 mg tablet 2.5 mg PO DAILY 02/09/23 02/09/23 History melatonin 5 mg tablet 5 mg PO HS PRN Insomnia 02/09/23 02/09/23 History pravastatin 10 mg tablet 10 mg PO DAILY 02/09/23 02/09/23 History Allergies Allergy/AdvReac Type Severity Reaction Status Date / Time hydrocodone Allergy Severe Palpitation Verified 10/16/24 11:59 s mold Allergy Severe Hives Verified 10/16/24 11:59 acetaminophen [From Vicodin] Allergy Mild headache, Verified 10/16/24 11:59 tachycardia codeine Allergy Unknown Palpitation Verified 10/16/24 11:59 s Visit Medications Discontinued Medications Glucagon (Glucagon Inj 1 Mg Vial) 1 mg IM X1 ONE Stop: 10/17/24 18:55 Last Admin: 10/17/24 19:46 Dose: 1 mg Sodium Chloride (Ns) 1,000 mls @ 999 mls/hr IV .Q1H1M ONE Stop: 10/18/24 01:23 Last Infusion: 10/18/24 02:00 Dose: Infused Morphine Sulfate (Morphine Sulf Inj 10 Mg/Ml Vial) 5 mg IVP X1 ONE Stop: 10/18/24 00:24 Last Admin: 10/18/24 00:41 Dose: 5 mg Ondansetron HCl (Ondansetron Inj 2 Mg/Ml Inj 2 Ml) 4 mg IM X1 ONE; Protocol Stop: 10/17/24 19:41 Last Admin: 10/17/24 19:49 Dose: 4 mg Ondansetron HCl (Ondansetron Inj 2 Mg/Ml Inj 2 Ml) 4 mg IV X1 ONE; Protocol Stop: 10/18/24 00:24 Last Admin: 10/18/24 00:41 Dose: 4 mg Assessment & Plan Plan 59-year-old female with past medical history of esophageal dysmotility was admitted for acute gastritis and possible however less likely acute pancreatitis treatment and management. #Gastritis most likely #Acute pancreatitis, less likely #Abdominal pain due to above Patient presented with chief complaints of epigastric pain, bandlike, radiates to the back, getting worse by laying down Patient denies any history of smoking, alcohol use, or any recreational drug use, no recent trauma, no [id number] medication or herbs Labs revealed leukocytosis and elevated lipase 200 CT abdomen revealed possible gastritis, ultrasound of the liver revealed cholelithiasis, but no cholecystitis -Supportive management -IVF 100 cc/h NS -Pain management with morphine as needed -NPO -PPI 40 IV twice daily -Follow-up with lipid panel in the morning -Dr. Ascencio was consulted, recommendations appreciated #History of esophageal dysmotility Patient stated that he follows Dr. Ascencio and doctors in [place], -consulting Dr. Ascencio for Esophageal dysmotility and/or possible EGD #Hypokalemia Replaced -Monitor replace as needed Disposition: MedSurg DVT prophylaxis: SCDs GI prophylaxis: PPI IV Diet: Clear liquid Lines: PIV CODE STATUS:Full code Patient care was discussed with attending physician Dr.Sette Mounika Carrizales MD PGY-2 Attending Provider Attestation/Addendum I reviewed labs, imaging, EKG, home medications and prior available records. Face to face evaluation was performed by me. I have personally examined the patient and discussed assessment and plan with the IM team. I reviewed the resident note and agree with the plan with exceptions as below. 59-year-old female with no history of alcohol abuse who presented with a chief complaint of epigastric pain that radiates to the chest and associated with nausea and coffee-ground emesis. She was admitted for GI workup. Epigastric pain: Likely in setting of gastric versus esophageal etiology. Less likely due to to pancreatitis although her lipase is elevated however it is not severely elevated and she has no apparent risk factors. Less likely ACS given the nature of the pain, lack of risk factors, and negative troponin. Started the patient on Protonix IV twice daily. N.p.o. Consult GI for EGD. Treatment of nausea/vomiting/pain as needed. Monitor H&H. Acute Pancreatitis: Less likely than acute gastritis. The management will remain the same with IV fluids and treatment of the nausea/vomiting/pain as needed. Monitor CMP.
[2024-10-18 04:56] LABS: Basophils % (Auto) 0 % (0-2.5); Eosinophils % (Auto) 0 % (0-10); Hemoglobin 13.5 g/dL (12.0-16.0); Immature Granulocytes % (Auto) 0 % (0-0); Immature Granulocytes Auto 0.04 Thou/mm3 (0.00-0.00); Lymphocytes # (Auto) 2.5 Thou/mm3 (1.0-4.8); Lymphocytes % (Auto) 21 % (10-50); Mean Corpuscular HGB Conc 33.8 g/dl (31.0-37.0); Mean Corpuscular Hemoglobin 29.9 pg (25.0-35.0); Mean Corpuscular Volume 89 fL (80-100); Monocytes % (Auto) 8 % (0-12); Neutrophils # (Auto) 8.1 Thou/mm3 (1.8-7.7); Neutrophils % (Auto) 70 % (37-80); Nucleated Red Blood Cell % 0 /100 WBC (0); Platelet Count 275 Thou/mm3 (140-440); RDW Standard Deviation 42.7 fL (36.4-46.3); Red Blood Count 4.52 Miln/mm3 (4.00-5.20); White Blood Count 11.7 Thou/mm3 (3.6-11.0)
[2024-10-18] MEDS: SODIUM CHLORIDE 0.9% 1000 ML 1,000 ML 150 ML IV (05:08)
[2024-10-18] MEDS: MORPHINE SULF INJ 10 MG/ML VIAL 2 MG IVP ×4 (05:15→20:23)
[2024-10-18 05:16] LABS: Alanine Aminotransferase 25 U/L (10-49); Albumin, Serum 4.4 gm/dL (3.5-5.0); Albumin/Globulin Ratio 1.9 (1.2-2.2); Alkaline Phosphatase 78 U/L (46-116); Anion Gap 6 (7-16); Aspartate Amino Transferase 19 U/L (0-34); BUN/Creatinine Ratio 18 Ratio (12-20); Bilirubin,Total 0.5 mg/dL (0.3-1.2); Blood Urea Nitrogen 16 mg/dL (9-23); Calcium 9.1 mg/dL (8.3-10.6); Calcium (Corrected) 9.1 mg/dL (8.5-10.1); Carbon Dioxide 27.6 mMol/L (20.0-31.0); Cardiac Risk Estimate 3.8 RATIO (3.7-5.6); Chloride 104 mMol/L (98-107); Cholesterol 170 mg/dL (132-200); Creatinine (Component) 0.9 mg/dL (0.6-1.3); Estimated Creatinine Clearance 77.3 mL/min (>60); Globulin 2.3 gm/dL (2.3-3.5); Glucose 93 mg/dL (74-106); HDL Cholesterol 45 mg/dL (40-60); LDL Cholesterol,Calculated 108 mg/dL (0-130); Osmolality,Calculated 276 (275-295); Phosphorous 3.4 mg/dL (2.4-5.1); Potassium 3.8 mMol/L (3.4-5.1); Sodium 138 mMol/L (136-145); Thyroid Stimulating Hormone 2.93 uIU/mL (0.55-4.78); Total Protein 6.7 gm/dL (5.7-8.2); Triglycerides 87 mg/dL (30-150); eGFR > 60 See Note
[2024-10-18] MEDS: POTASSIUM CHL 10 mEq IVPB 10 MEQ/100 ML BAG 100 MEQ IV ×4 (05:18→08:55)
--- NOTE | 2024-10-18 07:25 | PC.NURSE ---
Pt alert, lying on stretcher. Potassium and NS infusing. Pt denies any pain at this time, only with movement but comfortable for now. Pt has belongings and call williamson in reach, VSS on tele.
--- NOTE | 2024-10-18 08:10 | PC.CC ---
Patient is a 59 year-old female who presented to the hospital for pancreatitis. Roula GARCIA made [id number] contact with patient. ASW introduced self, role, and reason for visit. Patient appeared alert and oriented to self, location, and situation. Patient was pleasant and engaged in initial assessment. Patient confirmed information on demographics and reports she lives with her son Maury Condon . If patient would not be able to make her own medical decision she named her son as her decision maker. Per patient, prior to being hospitalized she was able to complete her own ADLs and [employer]. Patient does not use any DME at home. Patient receives primary medical care with Dr. Kaba and uses [email or web address] for prescription medication. Upon discharge the patient plans to return home. media services coordinator to follow-up with any discharge needs.
[2024-10-18] MEDS: PANTOPRAZOLE INJ 40 MG VIAL IVP ×2 (08:56→20:15)
[2024-10-18] MEDS: SODIUM CHLORIDE 0.9% 1000 ML 1,000 ML 200 ML IV ×3 (12:30→22:36)
--- NOTE | 2024-10-18 13:15 | PC.NURSE ---
Jay came and spoke to the pt. does not believe that her pain is related to her gallstones, and informed her that she will need to be referred to him on an outpatient basis later on. Pt had stated that she has had esophageal dilatation with Gloria previously and needs it doen again , Eduin believes that the current pain is due to the stricture and possible gastritis. Ascencio is to consult with the pt later today
--- NOTE | 2024-10-18 13:59 | PD.SURCONS ---
HPI Consult details Consult date: 10/18/24 Reason for consultation narrative: Cholelithiasis History of present illness: 59-year-old female with history of hypertension, hypercholesterolemia, esophageal dysmotility disorder status post dilatation in the past presented with epigastric pain, dysphagia and feeling of food getting stuck in her stomach. Ultrasound revealed gallstones without evidence of cholecystitis. CT scan revealed severe gastritis, wall thickening of distal esophagus. She was noted to have elevation of lipase that is likely salivary not pancreatic. Review of Systems Constitutional Constitutional: Denies chills and Denies fever(s) Cardiovascular Cardiovascular: Denies chest pain Respiratory Respiratory: Denies cough Gastrointestinal Gastrointestinal: Reports abdominal pain and Reports coffee ground emesis Hematologic/Lymphatic Hematologic/Lymphatic: Denies easy bleeding and Denies easy bruising Past Medical History Surgical History OTHER SURGICAL HX: Appendectomy, Meds Home Medications and Allergies Home Medications ?Medication ?Instructions ?Recorded ?Confirmed ?Type amlodipine 2.5 mg tablet 2.5 mg PO DAILY 02/09/23 02/09/23 History melatonin 5 mg tablet 5 mg PO HS PRN Insomnia 02/09/23 02/09/23 History pravastatin 10 mg tablet 10 mg PO DAILY 02/09/23 02/09/23 History Allergies Allergy/AdvReac Type Severity Reaction Status Date / Time hydrocodone Allergy Severe Palpitation Verified 10/16/24 11:59 s mold Allergy Severe Hives Verified 10/16/24 11:59 acetaminophen [From Vicodin] Allergy Mild headache, Verified 10/16/24 11:59 tachycardia codeine Allergy Unknown Palpitation Verified 10/16/24 11:59 s Exam Vital Signs Temp Pulse Resp BP Pulse Ox O2 Del Method 98.2 F 78 18 132/87 H 98 Room Air 10/18/24 08:11 10/18/24 08:11 10/18/24 08:11 10/18/24 08:11 10/18/24 08:11 10/18/24 08:11 Constitutional Constitutional: no acute distress Routine Abdominal Exam Abdominal: Present soft and normoactive bowel sounds; Absent tenderness or distended Assessment & Plan Problem List (1) Cholelithiasis: Status: Acute Plan Her symptoms are likely due to her gastritis and esophageal dysmotility syndrome. I do not think he has pancreatitis and her mild elevation of lipase is mostly salivary rather than pancreatic. Patient is awaiting evaluation by Dr. Ascencio. Once her active issues are resolved she can follow-up as an outpatient for elective cholecystectomy. Please call for any questions (1) Cholelithiasis Qualifiers: Cholelithiasis location: gallbladder Cholecystitis presence: without cholecystitis Biliary obstruction: without biliary obstruction Qualified Code(s): K80.20 - Calculus of gallbladder without cholecystitis without obstruction
--- NOTE | 2024-10-18 17:33 | ESPR_ITS ---
<Statement entered by Jv Sanchez MD - 10/28/24 16:29> I reviewed above note and agree with findings and plans. I have also personally examined the patient with medicine team and went over assessment and plan with medical team including marketing pr intern and resident physician. <Statement entered by Finn Gray MD - 10/19/24 15:21> Senior Resident Attestation: I supervised/discussed management plan with marketing pr intern physician Dr. Senior, and was involved in the care of this patient. I personally saw and examined the patient and discussed the assessment and plan with the entire medicine team, including my attending. I agree with the assessment and plan as documented. Patient's care was discussed with attending physician, Dr. Sanchez. Finn Gray MD PGY-2. Documentation for date of: 10/18/24 Subjective Subjective Interval history: 10/18: Patient is overnight admission. Patient is seen and examined at this this morning. patient endorses significant improvement in epigastric abdominal pain currently her pain is approximately 4 out of 10. Patient denies any nausea or vomiting. Patient has no other complaints. Exam Vital Signs Temp Pulse Resp BP Pulse Ox O2 Del Method 98.3 F 77 18 135/74 H 99 Room Air 10/18/24 16:00 10/18/24 16:23 10/18/24 16:23 10/18/24 16:00 10/18/24 16:00 10/18/24 16:00 Narrative Exam GENERAL: A&Ox3 . Awake, Not in acute distress NEURO: fretted instrument maker hand grossly intact, moves extremities x4 HEENT: Atraumatic, Normocephalic. mucous membranes moist. Eyes open, symmetrical, & clear HEART: Normal Heart Sounds LUNGS: Clear to auscultation with no wheezing or crackles. ABDOMEN: soft, non-distended, non-tender, bowel sounds heard, no guarding or rebound tenderness SKIN: No Rash or ecchymoses EXTREMITIES: No edema, tenderness, able to move all 4 extremities, pedal pulses palpated Objective Labs 10/18/24 04:41 10/18/24 04:41 Labs: Laboratory Results - last 24 hr 10/17/24 10/18/24 19:43 04:41 WBC 14.5 H 11.7 H RBC 4.98 4.52 Hgb 15.0 13.5 Hct 43.5 40.0 MCV 87 89 MCH 30.1 29.9 MCHC 34.5 33.8 RDW Std Deviation 42.5 42.7 Plt Count 308 275 D Neut % (Auto) 75 70 Lymph % (Auto) 17 21 Winkler % (Auto) 7 8 Eos % (Auto) 0 0 Baso % (Auto) 0 0 Neut # (Auto) 10.9 H 8.1 H Lymph # (Auto) 2.5 2.5 Winkler # (Auto) 1.0 H 1.0 H Eos # (Auto) 0.0 0.0 Baso # (Auto) 0.1 0.0 Immature Gran # (Auto) 0.05 H 0.04 H Absolute Nucleated RBC 0.00 0.00 Immature Gran % 0 0 Nucleated RBC % 0 0 Sodium 136 138 Potassium 3.3 L 3.8 D Chloride 100 104 Carbon Dioxide 27.7 27.6 Anion Gap 8 6 L BUN 17 16 Creatinine 1.0 0.9 Estim Creat Clear Calc 69.6 77.3 eGFR > 60 > 60 BUN/Creatinine Ratio 17 18 Glucose 94 93 Calculated Osmolality 273 L 276 Calcium 9.8 9.1 Corrected Calcium 9.8 9.1 Phosphorus 3.4 Magnesium 2.0 Total Bilirubin 0.6 0.5 AST 22 19 ALT 30 25 Alkaline Phosphatase 84 78 Troponin I < 0.020 Total Protein 7.6 6.7 Albumin 4.9 4.4 D Globulin 2.7 2.3 Albumin/Globulin Ratio 1.8 1.9 Triglycerides 87 Cholesterol 170 LDL Cholesterol, Calc 108 HDL Cholesterol 45 Cholesterol/HDL Ratio 3.8 Lipase 200 H D TSH 2.93 Quality Measures Quality Measures none Assessment & Plan Assessment Current Active Medications: Generic Name Dose Route Start Last Admin Trade Name Freq PRN Reason Stop Dose Admin Acetaminophen 650 mg 10/18/24 04:22 Acetaminophen 325 Mg Tablet PO 11/17/24 04:21 Q6H PRN PAIN OR FEVER > 101 Sodium Chloride 1,000 mls @ 200 mls/hr 10/18/24 11:35 10/18/24 16:51 Ns IV 10/19/24 12:34 200 mls/hr .Q5H TYRONE Administration Morphine Sulfate 2 mg 10/18/24 04:50 10/18/24 15:48 Morphine Sulf Inj 10 Mg/Ml Vial IVP 10/23/24 04:21 2 mg Q4H PRN Administration PAIN SCALE 4-6 (Moderate Ondansetron HCl 4 mg 10/18/24 04:22 10/18/24 08:55 Ondansetron Inj 2 Mg/Ml Inj 2 Ml IV 11/17/24 04:21 4 mg Q6H PRN Administration NAUSEA OR VOMITING Protocol Pantoprazole Sodium 40 mg 10/18/24 09:00 10/18/24 08:56 Pantoprazole Inj 40 Mg Vial IVP 11/17/24 08:59 40 mg BID TYRONE Administration Sennosides 1 tab 10/18/24 09:00 10/18/24 09:01 Senna Tablet PO 11/17/24 08:59 Not Given QDAY TYRONE Protocol Plan Ms. Rogers is a 59-year-old female with past medical history significant for hypertension, hyperlipidemia, history of of esophageal dysmotility status post dilation with Dr. Ascencio presented to the ED complaining of worsening epigastric pain radiating to her back patient also states she has sensation of something stuck in her throat. Patient was in the ED recently for similar abdominal pain found to have cholelithiasis and was discharged home to be followed up outpatient management upon going home patient's epigastric pain worsened , patient was admitted for acute gastritis and possible however less likely gallstone pancreatitis treatment and management. #Gastritis most likely #Cholelithiasis #Gallstone pancreatitis, less likely #Abdominal pain due to above -Patient presented with chief complaints of epigastric pain, bandlike, radiates to the back, getting worse by laying down -Patient denies any history of smoking, alcohol use, or any recreational drug use, no recent trauma, no [id number] medication or herbs -Labs revealed leukocytosis and elevated lipase 200 -CT abdomen revealed possible gastritis, ultrasound of the liver revealed cholelithiasis, but no cholecystitis -Ultrasoun of gallbladder-multiple gallstones Plan: -Supportive management -IVF 100 cc/h NS -Pain management with morphine as needed -NPO -PPI 40 IV twice daily -Follow-up with lipid panel TSH in the morning -Dr. Ascencio was consulted, recommendations appreciated -Surgery consulted, recommendations appreciated #History of esophageal dysmotility s/p dilation -Patient stated that she follows Dr. Ascencio -consulting Dr. Ascencio for Esophageal dysmotility and/or possible EGD #History of primary hypertension ?Blood pressure well-controlled -Waiting med reconcile #Hypokalemia -Replaced -Monitor replace as needed Disposition: MedSurg management of possible gallstone pancreatitis DVT prophylaxis: SCDs GI prophylaxis: PPI IV Diet: Clear liquid Lines: PIV CODE STATUS:Full code Assessment and plan discussed with my senior resident Dr. Gray & attending physician Dr. Laura Senior (PGY-1)- Internal medicine resident
--- NOTE | 2024-10-18 23:10 | ESCONSULT_ITS ---
HPI Data of Consult Requesting Physician: Endy Tran MD Primary Care Provider: Caren Kaba PA-C Consult Narrative Reason for consult: Chest pain, abdominal pain, elevated lipase, History of present illness: 59 years old female came into the emergency room and her own vehicle complains of chest pain abdominal pain CT scan of the abdomen pelvis done with contrast along with chest showed thickening of the distal esophageal wall elevated lipase This is her second visit to the ER Lipase level was 200 She was sent home the day prior with a lipase of 107 She was subsequently admitted Gallbladder ultrasound shows cholelithiasis Patient also has difficulty swallowing with food getting stuck in the distal esophageal area in the proximal suprasternal notch area She also has chest pain He was referred in the past for esophageal manometry but she did not make it to [facility] as there was a issue of transportation cc:: cc: Endy Tran MD Review of Systems Review of Systems Systems Reviewed: All systems reviewed, normal except as documented Past Medical History Surgical History OTHER SURGICAL HX: Essential hypertension Hyperlipidemia Meds Home Medications and Allergies Home Medications ?Medication ?Instructions ?Recorded ?Confirmed ?Type amlodipine 2.5 mg tablet 2.5 mg PO DAILY 02/09/23 02/09/23 History melatonin 5 mg tablet 5 mg PO HS PRN Insomnia 02/09/23 02/09/23 History pravastatin 10 mg tablet 10 mg PO DAILY 02/09/23 02/09/23 History Allergies Allergy/AdvReac Type Severity Reaction Status Date / Time hydrocodone Allergy Severe Palpitation Verified 10/16/24 11:59 s mold Allergy Severe Hives Verified 10/16/24 11:59 acetaminophen [From Vicodin] Allergy Mild headache, Verified 10/16/24 11:59 tachycardia codeine Allergy Unknown Palpitation Verified 10/16/24 11:59 s Exam Vital Signs Temp Pulse Resp BP Pulse Ox O2 Del Method 97.7 F 71 18 133/80 H 99 Room Air 10/18/24 20:00 10/18/24 20:00 10/18/24 20:00 10/18/24 20:00 10/18/24 20:00 10/18/24 20:00 Constitutional Comments: Alert and oriented Routine Respiratory Exam Comments: Normal to auscultation Routine Abdominal Exam Comments: Midepigastric right upper quadrant tenderness Results Labs 10/18/24 04:41 10/18/24 04:41 Labs: Short CBC 10/18/24 Range/Units 04:41 WBC 11.7 H (3.6-11.0) Thou/mm3 Hgb 13.5 (12.0-16.0) g/dL Hct 40.0 (36.0-46.0) % Plt Count 275 D (140-440) Thou/mm3 BMP 10/18/24 04:41 Sodium 138 Potassium 3.8 D Chloride 104 Carbon Dioxide 27.6 BUN 16 Creatinine 0.9 Glucose 93 Calcium 9.1 Liver Function 10/18/24 Range/Units 04:41 Total Bilirubin 0.5 (0.3-1.2) mg/dL AST 19 (0-34) U/L ALT 25 (10-49) U/L Alkaline Phosphatase 78 (46-116) U/L Albumin 4.4 D (3.5-5.0) gm/dL Assessment and Plan Additional Assessment & Plan Additional Plan: # Acute gallstone pancreatitis Recommend either inpatient or outpatient laparoscopic versus open cholecystectomy # Dysphagia with atypical chest pain and abnormal CT scan showing thickening of the distal esophageal wall Informed consent obtained for fiberoptic esophagogastroduodenoscopy with either guidewire savory dilatation or endoscopic balloon dilatation under intravenous moderate sedation with biopsies and therapeutic intervention scheduled for tomorrow Clear liquid diet till 11 AM tomorrow Further evaluation after above Thank you very much for the opportunity to participate in the care of this patient
[2024-10-19] VITALS (21 sets, daily range): BP systolic 125–195; BP diastolic 67–112; PULSE 63–100; RESP 14–98; TEMP 36.1–37.1; O2SAT 88–100
[2024-10-19] MEDS: SODIUM CHLORIDE 0.9% 1000 ML 1,000 ML 200 ML IV ×2 (03:41→08:15)
[2024-10-19 07:37] LABS: Basophils % (Auto) 0 % (0-2.5); Eosinophils # (Auto) 0.1 Thou/mm3 (0.0-0.5); Eosinophils % (Auto) 1 % (0-10); Hematocrit 33.8 % (36.0-46.0); Hemoglobin 11.4 g/dL (12.0-16.0); Immature Granulocytes % (Auto) 0 % (0-0); Immature Granulocytes Auto 0.03 Thou/mm3 (0.00-0.00); Lymphocytes # (Auto) 1.7 Thou/mm3 (1.0-4.8); Lymphocytes % (Auto) 25 % (10-50); Mean Corpuscular HGB Conc 33.7 g/dl (31.0-37.0); Mean Corpuscular Hemoglobin 29.9 pg (25.0-35.0); Mean Corpuscular Volume 89 fL (80-100); Monocytes # (Auto) 0.6 Thou/mm3 (0.0-0.8); Monocytes % (Auto) 8 % (0-12); Neutrophils # (Auto) 4.6 Thou/mm3 (1.8-7.7); Neutrophils % (Auto) 65 % (37-80); Nucleated Red Blood Cell % 0 /100 WBC (0); Platelet Count 204 Thou/mm3 (140-440); RDW Standard Deviation 42.9 fL (36.4-46.3); Red Blood Count 3.81 Miln/mm3 (4.00-5.20)
[2024-10-19 07:44] LABS: INR 1.1 (0.9-1.3); Partial Thromboplastin Time 26.2 Seconds (22.0-36.0); Prothrombin Time 11.9 Seconds (9.0-12.2)
[2024-10-19 07:57] LABS: Alanine Aminotransferase 24 U/L (10-49); Albumin, Serum 3.6 gm/dL (3.5-5.0); Albumin/Globulin Ratio 1.9 (1.2-2.2); Alkaline Phosphatase 63 U/L (46-116); Anion Gap 7 (7-16); Aspartate Amino Transferase 21 U/L (0-34); BUN/Creatinine Ratio 17 Ratio (12-20); Blood Urea Nitrogen 10 mg/dL (9-23); Calcium 8.6 mg/dL (8.3-10.6); Calcium (Corrected) 8.9 mg/dL (8.5-10.1); Carbon Dioxide 22.9 mMol/L (20.0-31.0); Chloride 112 mMol/L (98-107); Creatinine (Component) 0.6 mg/dL (0.6-1.3); Estimated Creatinine Clearance 118.3 mL/min (>60); Globulin 1.9 gm/dL (2.3-3.5); Glucose 77 mg/dL (74-106); Magnesium 1.9 mg/dL (1.6-2.6); Osmolality,Calculated 281 (275-295); Potassium 3.9 mMol/L (3.4-5.1); Sodium 142 mMol/L (136-145); Thyroid Stimulating Hormone 1.89 uIU/mL (0.55-4.78); Total Protein 5.5 gm/dL (5.7-8.2); eGFR > 60 See Note
[2024-10-19] MEDS: PANTOPRAZOLE INJ 40 MG VIAL IVP (08:13)
--- NOTE | 2024-10-19 11:45 | ECHO_ITS ---
Transthoracic Echo Report Ht (in): 66 Wt (lb): 208 Exam Location: Portable Status: Inpatient Automation Application Engineer: Kim Berry Indications: Procedure Performed: BP: 126 / 89 HR: 75 Rhythm: Sinus Technical Quality: Fair MEASUREMENTS (Male / Female) Normal Values 2D ECHO LV Diastolic Diameter PLAX 4.8 cm 4.2 - 5.9 / 3.9 - 5.3 cm LV Systolic Diameter PLAX 3.1 cm IVS Diastolic Thickness 0.9 cm 0.6 - 1.0 / 0.6 - 0.9 cm LVPW Diastolic Thickness 0.9 cm 0.6 - 1.0 / 0.6 - 0.9 cm LV Relative Wall Thickness 0.4 LVOT Diameter 1.9 cm LA Volume Index 19.5 cm?/m? 16 - 28 cm?/m? Ascending Aorta Diameter 3.1 cm M-MODE Aortic Root Diameter MM 2.7 cm LA Systolic Diameter MM 3.3 cm LA Ao Ratio MM 1.2 AV Cusp Separation MM 2.2 cm DOPPLER AV Peak Velocity 158.0 cm/s AV Peak Gradient 10.0 mmHg AV Mean Gradient 5.0 mmHg AV Velocity Time Integral 36.7 cm LVOT Peak Velocity 88.7 cm/s LVOT Peak Gradient 3.1 mmHg LVOT Velocity Time Integral 19.2 cm LVOT Cardiac Index 1915.3 cm?/min?m? AV Area Cont Eq vti 1.5 cm? AV Area Cont Eq pk 1.6 cm? MV Peak Velocity 93.3 cm/s MV Peak Gradient 3.5 mmHg MV Mean Velocity 59.1 cm/s MV Mean Gradient 2.0 mmHg MV Area PHT 2.8 cm? Mitral E Point Velocity 77.1 cm/s Mitral A Point Velocity 78.6 cm/s Mitral E to A Ratio 1.0 LV E' Lateral Velocity 7.0 cm/s Mitral E to LV E' Lateral Ratio 11.1 LV E' Septal Velocity 7.0 cm/s Mitral E to LV E' Septal Ratio 11.1 FINDINGS Left Ventricle Normal left ventricular size, wall thickness, systolic function . Septal bounce.The ejection fractio n is visually estimated at 60-65%. Right Ventricle The right ventricle is normal in size and systolic function. Left Atrium The left atrium is normal by two-dimensional, color flow and Doppler imaging with no structural abnormalities, no thrombus formation present. Right Atrium The right atrium is normal by two-dimensional imaging, color flow and Doppler imaging with no struct ural abnormalities, no thrombus formation present. Atrial Septum The interatrial septum appears normal with no evidence of a shunt. Aorta The aorta is normal by two-dimensional, color flow and Doppler interrogation. Mitral Valve The mitral valve is normal by two-dimensional, color flow and Doppler interrogation. There is mild mitral valve regurgitation. Aortic Valve The aortic valve is trileaflet. Mild sclerosis without stenosis. There is no significant aortic valv e regurgitation. Tricuspid Valve The tricuspid valve is normal by two-dimensional, color flow and Doppler interrogation. There is tra ce tricuspid valve regurgitation. Pulmonic Valve There is trace pulmonic valve regurgitation. Vessels The pulmonary artery appears normal. The inferior vena cava pulmonary and hepatic veins appear adrian l. Pericardium The pericardium is normal by two-dimensional imaging. There is no significant pericardial effusion. CONCLUSIONS The transthoracic study is normal by two-dimensional, color flow imaging and Doppler interrogation. Normal left ventricular size and function. LVEF 65% Normal RV size and function trace mitral and trace tricuspid regurgitation Mild AV sclerosis without stenosis. Kelsi Shell (Electronically Signed) Final Date: 20 October 2024 13:52
--- NOTE | 2024-10-19 13:00 | ESPR_ITS ---
Documentation for date of: 10/19/24 Subjective Subjective Interval history: Patient was seen and examined at the bedside. No acute overnight events. Patient continues on aggressive IVF for pancreatitis. GI was consulted and decided to proceed with EGD due to medical history of esophageal dysmotility disorder and CT scan finding of thickening of esophageal wall. Patient is on clear liquid diet, anticipating EGD tonight. Echo was also ordered due to pain located in epigastrium and is worse when she is laying on her back. Exam Vital Signs Temp Pulse Resp BP Pulse Ox O2 Del Method 97.3 F 75 17 126/89 H 99 Room Air 10/19/24 12:00 10/19/24 12:00 10/19/24 12:00 10/19/24 12:00 10/19/24 12:00 10/19/24 12:00 Narrative Exam Gen: Well-developed and well-nourished female. HEENT: NCAT, PERRLA, EOMI, MMM, anicteric conjunctivae. CVS: normal S1 and S2. RRR. No M/R/G. Resp: CTA B/L. No rhonchi, rales, crackles or wheezing. Abd: soft, mildly tender, non-distended. BS+ in all 4 quadrants. MSK: Good ROM in BUE & BLE. No edema or rash. Neuro: CN II-XII grossly intact. Strength 5/5 in BUE & BLE. Alert and oriented x3. Objective Labs 10/20/24 05:45 10/19/24 06:55 Labs: Laboratory Results - last 24 hr 10/19/24 06:55 WBC 7.0 D RBC 3.81 L Hgb 11.4 L D Hct 33.8 L MCV 89 MCH 29.9 MCHC 33.7 RDW Std Deviation 42.9 Plt Count 204 D Neut % (Auto) 65 Lymph % (Auto) 25 Wallace % (Auto) 8 Eos % (Auto) 1 Baso % (Auto) 0 Neut # (Auto) 4.6 Lymph # (Auto) 1.7 Wallace # (Auto) 0.6 Eos # (Auto) 0.1 Baso # (Auto) 0.0 Immature Gran # (Auto) 0.03 H Absolute Nucleated RBC 0.00 Immature Gran % 0 Nucleated RBC % 0 PT 11.9 INR 1.1 APTT 26.2 Sodium 142 Potassium 3.9 Chloride 112 H Carbon Dioxide 22.9 Anion Gap 7 BUN 10 Creatinine 0.6 Estim Creat Clear Calc 118.3 eGFR > 60 BUN/Creatinine Ratio 17 Glucose 77 Calculated Osmolality 281 Calcium 8.6 Corrected Calcium 8.9 Magnesium 1.9 AST 21 ALT 24 Alkaline Phosphatase 63 Total Protein 5.5 L Albumin 3.6 D Globulin 1.9 L Albumin/Globulin Ratio 1.9 TSH 1.89 Quality Measures Quality Measures VTE prophylaxis Assessment & Plan Assessment Current Active Medications: Generic Name Dose Route Start Last Admin Trade Name Freq PRN Reason Stop Dose Admin Acetaminophen 650 mg 10/19/24 10:01 Acetaminophen 325 Mg Tablet PO 11/17/24 04:21 Q6H PRN PAIN 1-3 OR FEVER > 101 Morphine Sulfate 2 mg 10/18/24 04:50 10/18/24 20:23 Morphine Sulf Inj 10 Mg/Ml Vial IVP 10/23/24 04:21 2 mg Q4H PRN Administration PAIN SCALE 4-6 (Moderate Ondansetron HCl 4 mg 10/18/24 04:22 10/18/24 08:55 Ondansetron Inj 2 Mg/Ml Inj 2 Ml IV 11/17/24 04:21 4 mg Q6H PRN Administration NAUSEA OR VOMITING Protocol Pantoprazole Sodium 40 mg 10/18/24 09:00 10/19/24 08:13 Pantoprazole Inj 40 Mg Vial IVP 11/17/24 08:59 40 mg BID TYRONE Administration Sennosides 1 tab 10/18/24 09:00 10/19/24 08:13 Senna Tablet PO 11/17/24 08:59 Not Given QDAY [facility] Protocol Plan Ms. Rogers is a 59-year-old female with past medical history significant for hypertension, hyperlipidemia, history of of esophageal dysmotility status post dilation with Dr. Ascencio presented to the ED complaining of worsening epigastric pain radiating to her back patient also states she has sensation of something stuck in her throat. Patient was in the ED recently for similar abdominal pain found to have cholelithiasis and was discharged home to be followed up outpatient management upon going home patient's epigastric pain worsened , patient was admitted for acute gastritis and possible however less likely gallstone pancreatitis treatment and management. #Epigastric pain. #Cholelithiasis. #?Pancreatitis. -Patient presented with chief complaints of epigastric pain, bandlike, radiates to the back, getting worse by laying down -Patient denies any history of smoking, alcohol use, or any recreational drug use, no recent trauma, no [id number] medication or herbs -Labs revealed leukocytosis and elevated lipase 200 -CT abdomen revealed possible gastritis, ultrasound of the liver revealed cholelithiasis, but no cholecystitis -Ultrasoun of gallbladder-multiple gallstones Plan: -IVF 200 cc/h NS. -Pain management with morphine as needed. -CLD, pending EGD -PPI 40 IV twice daily. -Dr. Ascencio was consulted, recommendations appreciated. -Surgery consulted, recommendations appreciated. -echo ordered. #History of esophageal dysmotility s/p dilation. -Patient stated that she follows Dr. Ascencio -consulting Dr. Ascencio for Esophageal dysmotility, EGD scheduled for today. #History of primary hypertension. ?Blood pressure well-controlled. -Waiting med reconcile. #Hypokalemia, resolved. -Replaced -Monitor replace as needed Disposition: MedSurg DVT prophylaxis: SCDs GI prophylaxis: PPI IV Diet: Clear liquid Lines: PIV CODE STATUS:Full code Plan of care discussed with attending Dr. Rios. Finn Gray MD, PGY 2. Disclaimer: This note was dictated by speech recognition. Minor errors in chief dispatcher service may be present due to voice recognition software. Attending Provider Attestation/Addendum Lizeth, Augusta Rios, , attest that I was physically present for the [place] portions of the service and evaluated the patient with the resident and I reviewed and discussed the case with the resident and agree with the resident's findings and plans of care as documented above Patient seen and evaluated this AM. She reports having intermittent chest pains in both the retrosternal region and epigastric region. Patient states had initially been referred to [facility] for further esophageal manometry studies, but had been unable to due to scheduling issues. Patient had an episode of sharp stabbing chest pain during my encounter which was relieved with sitting up. Patient denies any recent fevers or chills. She states she has been really fatigued as well due to inability to eat 2/2 pain. Chest pain appears atypical, but will have cardiology also assess due to concern for pericarditis. Echocardiogram ordered. Troponin was obtained and negative. Patient is scheduled for endoscopy this evening. Will f/u with results. Will consider calcium channel blockers for esophageal spasm once patient is able to have diet advanced following procedure.
[2024-10-19 13:17] LABS: Troponin I < 0.020 ng/mL (0.0-0.045)
[2024-10-19] MEDS: Magnesium Sulfate 1 gm Ivpb 1 GM/100 ML BAG IV (14:08)
--- NOTE | 2024-10-19 14:44 | ESCONSULT_ITS ---
<Statement entered by Ruth Yin MD - 10/21/24 13:04> I personally reviewed the findings and examined the patient until the history appears to have noncardiac chest pain pleuritic in nature cardiac echo appears to be normal as well reassured that this is noncardiac chest pain also has gallbladder pancreatitis with gallstones possibly require cholecystectomy. I reviewed the findings all essential components are reviewed by me personally agree with the treatment plan recommendation as documented by Dr. Norman PGY 2 HPI Data of Consult Patient: new to practice Consult date: 10/19/24 Requesting Physician: Ladarius Quintana DO Admitting Provider: Endy Tran MD Attending Provider: Ladarius Quintana DO Primary Care Provider: Caren Kaba PA-C Consult Narrative Reason for consult: Chest pain History of present illness: This patient 59-year-old female with past medical history of asthma and esophageal dysmotility managed by Dr. Ascencio as outpatient presented with worsening epigastric pain/chest pain radiating to the back described as sharp, constant worsened when lying flat and relieved with turning on her side. Also reported to have sensation of something stuck in her throat associated with nausea and vomiting and decreased appetite. She also endorsed mild shortness of breath from last 4 days. In the ED, lab evaluation showed leukocytosis, hypokalemia and mildly elevated lipase. Ultrasound of the gallbladder revealed cholelithiasis without evidence of cholecystitis and mild hepatomegaly with fatty liver. CT abdomen was performed which showed no acute intrathoracic pathology, cholelithiasis and moderate wall thickening of distal body and antrum pyloric region of the stomach indicating gastritis in the appropriate clinical context. She received normal saline, Zofran and morphine in the ED. Patient met 2 out of 3 criteria for epigastric bandlike pain with elevated lipase. Currently getting managed for acute gastritis versus pancreatitis. Cardiology team consulted given concern for pericarditis. Patient endorsed having chest pain which comes and goes last for 4 minutes and is spasmodic. She describes her pain as sharp in character, radiating to the back and is like colicky. There is no tenderness on chest palpation. She reported that she took aspirin 4 days ago when she had this pain at home. Aspirin helped a little bit. She also endorsed bloating sensation. Denied any orthopnea and PND. No lower extremity swelling noticed. Patient did report having history of asthma and mold allergy therefore she takes budesonide as needed. GI specialist has been consulted for possible EGD. Patient received aggressive IV fluid resuscitation for management of pancreatitis. EKG showed normal sinus rhythm. Will likely repeat another EKG to evaluate better and follow-up on echocardiogram. Agreeable to continue IV fluid resuscitation and await EEG results. Patient does not seem to have significant cardiac history and does have a history of high blood pressure but does not seem to take anything at home. cc:: cc: Ladarius Quintana DO Review of Systems Review of Systems Systems Reviewed: All systems reviewed, normal except as documented Past Medical History Past Medical History NEUROLOGIC: Negative Neurological Disorders or Seizures CARDIAC: Positive Cardiac Disorders, Hypercholesterolemia and Hypertension; Negative Congestive Heart Failure RESPIRATORY: Positive Asthma; Negative Chronic Obstructive Pulmonary Disease (COPD) or Sleep Apnea GASTROINTESTINAL: Positive Gastrointestinal Disorders (fatty liver) GENITOURINARY: Negative Genitourinary Disorders or Renal Disease MUSCULOSKELETAL: Positive Musculoskeletal Disorders and Arthritis ENDOCRINE: Negative Endocrine Disorders, Diabetes Mellitus Type 1 or Diabetes Mellitus Type 2 HEMATOLOGIC: Negative Blood Disorders PSYCHO/SOCIAL: Positive Anxiety OTHER HISTORY: Positive Chicken Pox, Measles and Mumps; Negative Blood Transfusions or Anesthesia Reactions Family History FAMILY HISTORY: Positive Family Cancer and Family Surgery Surgical History SURGICAL: Positive Nose Surgery and Section; Negative Cardiac Surgery Social History SMOKING STATUS: Never smoker SUBSTANCE USE: does not use Exam Vital Signs Temp Pulse Resp BP Pulse Ox O2 Del Method 97.3 F 75 17 126/89 H 99 Room Air 10/19/24 12:00 10/19/24 12:00 10/19/24 12:00 10/19/24 12:00 10/19/24 12:00 10/19/24 12:00 Narrative Exam GENERAL APPEARANCE: Patient is AOx3, obese appearing female in mild discomfort due to chest pain. HEENT: NC, AT. MMM. EOMI, clear conjunctiva, oropharynx clear. NECK: Supple without lymphadenopathy. No stiffness or restricted ROM. HEART: Regular rate and regular rhythm, normal S1/S2, no m/r/g LUNGS: CTAB, moving air well. No crackles or wheezes are heard. ABDOMEN: Soft, nontender, nondistended with good bowel sounds heard. BACK: No CVAT, no obvious deformity. EXTREMITIES: Without cyanosis, clubbing or edema. No lower extremity edema noticed. NEUROLOGICAL: Grossly nonfocal. Alert and oriented, moving all 4 extremities. CN not formally tested but appear grossly intact. Observed to ambulate with normal gait. Skin: Warm and dry without any rash. Psych: Mildly anxious however cooperative Results Labs 10/19/24 06:55 10/19/24 06:55 Labs: Short CBC 10/19/24 Range/Units 06:55 WBC 7.0 D (3.6-11.0) Thou/mm3 Hgb 11.4 L D (12.0-16.0) g/dL Hct 33.8 L (36.0-46.0) % Plt Count 204 D (140-440) Thou/mm3 BMP 10/19/24 06:55 Sodium 142 Potassium 3.9 Chloride 112 H Carbon Dioxide 22.9 BUN 10 Creatinine 0.6 Glucose 77 Calcium 8.6 Cardiac Enzymes 10/19/24 Range/Units 06:55 Troponin I < 0.020 (0.0-0.045) ng/mL Liver Function 10/19/24 Range/Units 06:55 AST 21 (0-34) U/L ALT 24 (10-49) U/L Alkaline Phosphatase 63 (46-116) U/L Albumin 3.6 D (3.5-5.0) gm/dL Quality Measures Quality Measures VTE prophylaxis Medications Home Medications and Allergies Home Medications ?Medication ?Instructions ?Recorded ?Confirmed ?Type amlodipine 2.5 mg tablet 2.5 mg PO DAILY 02/09/23 02/09/23 History melatonin 5 mg tablet 5 mg PO HS PRN Insomnia 02/09/23 02/09/23 History pravastatin 10 mg tablet 10 mg PO DAILY 02/09/23 02/09/23 History Allergies Allergy/AdvReac Type Severity Reaction Status Date / Time hydrocodone Allergy Severe Palpitation Verified 10/16/24 11:59 s mold Allergy Severe Hives Verified 10/16/24 11:59 acetaminophen [From Vicodin] Allergy Mild headache, Verified 10/16/24 11:59 tachycardia codeine Allergy Unknown Palpitation Verified 10/16/24 11:59 s Visit Medications Acetaminophen (Acetaminophen 325 Mg Tablet) 650 mg PO Q6H PRN PRN Reason: PAIN 1-3 OR FEVER > 101 Stop: 11/17/24 04:21 Morphine Sulfate (Morphine Sulf Inj 10 Mg/Ml Vial) 2 mg IVP Q4H PRN PRN Reason: PAIN SCALE 4-6 (Moderate Stop: 10/23/24 04:21 Last Admin: 10/18/24 20:23 Dose: 2 mg Ondansetron HCl (Ondansetron Inj 2 Mg/Ml Inj 2 Ml) 4 mg IV Q6H PRN; Protocol PRN Reason: NAUSEA OR VOMITING Stop: 11/17/24 04:21 Last Admin: 10/18/24 08:55 Dose: 4 mg Pantoprazole Sodium (Pantoprazole Inj 40 Mg Vial) 40 mg IVP BID TYRONE Stop: 11/17/24 08:59 Last Admin: 10/19/24 08:13 Dose: 40 mg Sennosides (Senna Tablet) 1 tab PO QDAY TYRONE; Protocol Stop: 11/17/24 08:59 Last Admin: 10/19/24 08:13 Dose: Not Given Discontinued Medications Acetaminophen (Acetaminophen 325 Mg Tablet) 650 mg PO Q6H PRN PRN Reason: PAIN OR FEVER > 101 Stop: 11/17/24 04:21 Hydrocodone Bitart/Acetaminophen (Hydrocodone/Apap 5/325 Tablet) 1 tab PO Q4HR PRN PRN Reason: PAIN SCALE 4-6 (Moderate Stop: 10/23/24 04:21 Glucagon (Glucagon Inj 1 Mg Vial) 1 mg IM X1 ONE Stop: 10/17/24 18:55 Last Admin: 10/17/24 19:46 Dose: 1 mg Heparin Sodium (Porcine) (Heparin Sod Inj 5000 Unit/Ml Vial) 5,000 unit SC Q12HR [facility] Stop: 11/01/24 08:59 Sodium Chloride (Ns) 1,000 mls @ 999 mls/hr IV .Q1H1M ONE Stop: 10/18/24 01:23 Last Infusion: 10/18/24 02:00 Dose: Infused Lactated Ringer's (Lactated Ringers) 1,000 mls @ 150 mls/hr IV .Q6H40M ONE Stop: 10/18/24 11:09 Last Admin: 10/18/24 04:49 Dose: Not Given Sodium Chloride (Ns) 1,000 mls @ 150 mls/hr IV .Q6H40M ONE Stop: 10/18/24 11:27 Last Admin: 10/18/24 05:08 Dose: 150 mls/hr Potassium Chloride (Kcl Ivpb) 10 meq in 100 mls @ 100 mls/hr IV Q1H [facility] Stop: 10/18/24 09:00 Last Admin: 10/18/24 08:55 Dose: 100 mls/hr Sodium Chloride (Ns) 1,000 mls @ 200 mls/hr IV .Q5H TYRONE Stop: 10/19/24 12:34 Last Admin: 10/19/24 08:15 Dose: 200 mls/hr Magnesium Sulfate/Dextrose (Magnesium Sulfate Ivpb) 1 gm in 100 mls @ 100 mls/hr IV X1 ONE Stop: 10/19/24 14:33 Last Admin: 10/19/24 14:08 Dose: 100 mls/hr Morphine Sulfate (Morphine Sulf Inj 10 Mg/Ml Vial) 5 mg IVP X1 ONE Stop: 10/18/24 00:24 Last Admin: 10/18/24 00:41 Dose: 5 mg Morphine Sulfate (Morphine Sulf Inj 10 Mg/Ml Vial) 2 mg IVP Q4H PRN PRN Reason: PAIN SCALE 7-10 (Severe Stop: 10/23/24 04:21 Ondansetron HCl (Ondansetron Inj 2 Mg/Ml Inj 2 Ml) 4 mg IM X1 ONE; Protocol Stop: 10/17/24 19:41 Last Admin: 10/17/24 19:49 Dose: 4 mg Ondansetron HCl (Ondansetron Inj 2 Mg/Ml Inj 2 Ml) 4 mg IV X1 ONE; Protocol Stop: 10/18/24 00:24 Last Admin: 10/18/24 00:41 Dose: 4 mg Pantoprazole Sodium (Pantoprazole 40 Mg Tablet) 40 mg PO QDAY TYRONE Stop: 11/17/24 08:59 Pantoprazole Sodium (Pantoprazole Inj 40 Mg Vial) 40 mg IVP QDAY TYRONE Stop: 11/17/24 08:59 Assessment & Plan Plan This 59-year-old female with past medical history significant for asthma and mold allergy ,hypertension, hyperlipidemia, history of of esophageal dysmotility status post dilation with Dr. Ascencio presented to the ED complaining of worsening epigastric pain radiating to her back patient also states she has sensation of something stuck in her throat. Patient was in the ED recently for similar abdominal pain found to have cholelithiasis and was discharged home to be followed up outpatient management upon going home patient's epigastric pain worsened , patient was admitted for acute gastritis and possible however less likely gallstone pancreatitis treatment and management. Cardiology team consulted for concern for pericarditis. # Concern for ?pericarditis # Esophageal dysmotility syndrome status post dilation # Chest pain versus epigastric pain # ?Pancreatitis # History of asthma and mold allergy ?Patient presented with chief complaint of epigastric pain, bandlike radiates to the back worsened with laying down. Denied any history of smoking, alcohol use or recreational drug use. No history of trauma. No [id number] medications or herbs. CT scan abdomen revealed gastritis ultrasound of the liver showed cholelithiasis but not cholecystitis. Ultrasound gallbladder showed multiple gallstones. U tox was negative. ? Troponin I has been negative since admission ?Patient is making good urine output and hematocrit 33.8 ? Denied any cardiac history in the past. ? Allergic to molds and uses budesonide as needed Plan: ? Continue IV fluid resuscitation ? Pain management as needed ? May benefit from CCB's given history of esophageal dysmotility syndrome possible nutcracker esophageal pain ? Patient is awaiting EGD GI following the case ? Continue PPI therapy ? Will follow-up on the echocardiogram to evaluate cardiac functions ? Repeating troponin I and EKG # History of essential hypertension # History of hyperlipidemia ? Blood pressure well-controlled ? Patient denied taking any antihypertensive at home Plan: ? Monitor vitals closely and pain management as needed # Hypokalemia # Normocytic anemia Rest of the management as per primary care team. Thank you very much for consulting cardiology team. Will likely follow-up on echocardiogram results. Less likely to be cardiac chest pain or pericarditis. Will await for endoscopy results. GI following the case. Plan of care discussed with shirt ironer supervisor, Dr. Humphrey Norman MD, PGY 2
--- NOTE | 2024-10-19 14:50 | EKG_ITS ---
[facility] Test Date: 2024-10-19 Pat Name: ARINA RILEY Department: Room: S380A Gender: Female [employer]: OBED : 1965 Requested By: Tristan Norman Order Number: [id number] Reading MD: Tristan Norman Measurements Intervals [place] Rate: 63 P: 64 NE: 211 QRS: 31 QRSD: 78 T: 27 QT: 407 QTc: 418 Interpretive Statements SINUS RHYTHM WITH FIRST DEGREE AV BLOCK LEFT ATRIAL ENLARGEMENT [-0.15mV P WAVE IN V1/V2] Compared to ECG 10/16/2024 12:21:15 First degree AV block now present Atrial abnormality now present /store/S0/[id number].pdf
[2024-10-19 14:52] LABS: Bilirubin,Total 0.3 mg/dL (0.3-1.2)
[2024-10-19 15:52] LABS: Troponin I < 0.002 ng/mL (0.0-0.045)
--- NOTE | 2024-10-19 18:10 | SUR.PHASEI ---
Arrived to [facility] via [facility]. Report received from Christy DAVIS. Resting with eyes closed. No s/o distress or discomfort. No c/o pain. Responding to questions and commands appropriately. Opened eyes and asked if everything was done already.
--- NOTE | 2024-10-19 18:46 | SUR.PHASEI ---
Taken to room 380 by Janey Perera RN. C/O her throat feeling weird. States she feels like something is in her throat. Examined throat, throat clear. Tolerated sips of water PO. Explained to her that throat may be sore from procedure. No other complaints. No s/o distress.
--- NOTE | 2024-10-19 18:51 | PC.NURSE ---
received from endo per iza, alert and oriented, saline lock iv. Ambulated from [facility] to restroom to bed with gait steady.
[2024-10-19] MEDS: MG HYD/AL HYD/SIME (Maalox Reg) SUSP 30 ML UDC 15 ML PO ×2 (20:10→23:26)
[2024-10-19] MEDS: SUCRALFATE SUSP 1 GM/10 ML UDC PO (20:10)
[2024-10-19] MEDS: PANTOPRAZOLE/NS 80MG IV PREMIX 80 MG/100 ML BAG 10 MG IV (20:13)
[2024-10-19] MEDS: MORPHINE SULF INJ 10 MG/ML VIAL 2 MG IVP (20:22)
--- NOTE | 2024-10-19 20:53 | PC.NURSE ---
seen and examined by Dr. Shin.
--- NOTE | 2024-10-19 21:00 | XR_ITS ---
Examination: Abdomen sonogram, Limited Date and time of exam: October 19, 2024 at 11:11 PM Indications: Epigastric pain chest pain onset today Technique: Real-time thakkar scale transabdominal sonographic images of the upper abdomen obtained. Findings: Multiple gallstones Normal gallbladder wall Normal common bile duct 0.3 cm Pancreatic head 3.6 cm Liver 15.8 cm fatty infiltration no focal liver lesions Normal hepatopedal portal venous flow Patent IVC Impression: Cholelithiasis, negative for cholecystitis
[2024-10-19] MEDS: MELATONIN 3 MG TABLET PO (21:18)
[2024-10-19] MEDS: HYDROmorphone INJ 2 MG/ML VIAL 1 MG IVP (21:18)
--- NOTE | 2024-10-19 21:27 | PC.NURSE ---
T=99.2 - removed thick blanket from home.
--- NOTE | 2024-10-19 21:32 | PC.NURSE ---
seen and examined by Dr. Ascencio.
--- NOTE | 2024-10-19 23:34 | PC.NURSE ---
ultrasound done at bedside.
--- NOTE | 2024-10-19 23:43 | PC.NURSE ---
88% O2 sat on room air- Applied O2 inh on at 2L/min/nc.
[2024-10-20] VITALS (9 sets, daily range): BP systolic 118–151; BP diastolic 72–80; PULSE 80–112; RESP 17–19; TEMP 36.7–37.9; O2SAT 93–96; BMI 33.4
[2024-10-20] MEDS: MORPHINE SULF INJ 10 MG/ML VIAL 2 MG IVP (00:01)
[2024-10-20] MEDS: CYCLObenzaPRINE 5 MG TABLET PO (00:48)
[2024-10-20] MEDS: MG HYD/AL HYD/SIME (Maalox Reg) SUSP 30 ML UDC 15 ML PO ×6 (02:32→22:49)
[2024-10-20] MEDS: HYDROmorphone INJ 2 MG/ML VIAL 1 MG IVP ×5 (02:32→20:32)
[2024-10-20 06:07] LABS: Basophils % (Auto) 0 % (0-2.5); Eosinophils % (Auto) 0 % (0-10); Hematocrit 38.7 % (36.0-46.0); Hemoglobin 13.5 g/dL (12.0-16.0); Immature Granulocytes % (Auto) 1 % (0-0); Immature Granulocytes Auto 0.11 Thou/mm3 (0.00-0.00); Lymphocytes # (Auto) 0.6 Thou/mm3 (1.0-4.8); Lymphocytes % (Auto) 3 % (10-50); Mean Corpuscular HGB Conc 34.9 g/dl (31.0-37.0); Mean Corpuscular Hemoglobin 30.4 pg (25.0-35.0); Mean Corpuscular Volume 87 fL (80-100); Monocytes % (Auto) 5 % (0-12); Neutrophils # (Auto) 17.4 Thou/mm3 (1.8-7.7); Neutrophils % (Auto) 91 % (37-80); Nucleated Red Blood Cell % 0 /100 WBC (0); Platelet Count 250 Thou/mm3 (140-440); RDW Standard Deviation 41.2 fL (36.4-46.3); Red Blood Count 4.44 Miln/mm3 (4.00-5.20); White Blood Count 19.2 Thou/mm3 (3.6-11.0)
[2024-10-20] MEDS: SUCRALFATE SUSP 1 GM/10 ML UDC PO ×4 (06:40→20:32)
[2024-10-20] MEDS: DILTIAZEM 30 MG TABLET PO (06:41)
[2024-10-20] MEDS: PANTOPRAZOLE/NS 80MG IV PREMIX 80 MG/100 ML BAG 10 MG IV ×2 (06:47→14:48)
--- NOTE | 2024-10-20 10:09 | ESPR_ITS ---
<Statement entered by Ruth Yin MD - 10/21/24 13:05> I personally examined the patient reviewed and spoke to the patient in detail patient appears to have pain having severe sharp bilateral chest pain positional nature appears to be pleuritic in nature though some of could be due to gallbladder problems and gallbladder pancreatitis especially the back pain. Patient may require cholecystectomy cardiac echo findings are normal normal wall motion no pericarditis given cardiac clearance for cholecystectomy recommended will continue to monitor the cardiac status with you. I reviewed the consultation report progress report and findings as documented by PGY 2 Dr. Matamoros agree with the treatment plan recommendation no further cardiac workup is necessary since I do not think her chest pain is cardiac in nature Documentation for date of: 10/20/24 Subjective Subjective Interval history: This patient 59-year-old female with past medical history of asthma and esophageal dysmotility managed by Dr. Ascencio as outpatient presented with worsening epigastric pain/chest pain radiating to the back described as sharp, constant worsened when lying flat and relieved with turning on her side. Also reported to have sensation of something stuck in her throat associated with nausea and vomiting and decreased appetite. She also endorsed mild shortness of breath from last 4 days. In the ED, lab evaluation showed leukocytosis, hypokalemia and mildly elevated lipase. Ultrasound of the gallbladder revealed cholelithiasis without evidence of cholecystitis and mild hepatomegaly with fatty liver. CT abdomen was performed which showed no acute intrathoracic pathology, cholelithiasis and moderate wall thickening of distal body and antrum pyloric region of the stomach indicating gastritis in the appropriate clinical context. She received normal saline, Zofran and morphine in the ED. Patient met 2 out of 3 criteria for epigastric bandlike pain with elevated lipase. Currently getting managed for acute gastritis versus pancreatitis. Cardiology team consulted given concern for pericarditis. Patient endorsed having chest pain which comes and goes last for 4 minutes and is spasmodic. She describes her pain as sharp in character, radiating to the back and is like colicky. There is no tenderness on chest palpation. She reported that she took aspirin 4 days ago when she had this pain at home. Aspirin helped a little bit. She also endorsed bloating sensation. Denied any orthopnea and PND. No lower extremity swelling noticed. Patient did report having history of asthma and mold allergy therefore she takes budesonide as needed. GI specialist has been consulted for possible EGD. Patient received aggressive IV fluid resuscitation for management of pancreatitis. EKG showed normal sinus rhythm. Will likely repeat another EKG to evaluate better and follow-up on echocardiogram. Agreeable to continue IV fluid resuscitation and await EEG results. Patient does not seem to have significant cardiac history and does have a history of high blood pressure but does not seem to take anything at home. 10/20/2024: Patient was seen and examined at the bedside. She continues to complain of chest pain. Vitals blood pressure 151/80. Heart rate stable. WBC shows reactive leukocytosis. Hemoglobin stable. Chemistry panel pending. EGD showed esophageal ulcers, grade B reflux esophagitis with no bleeding. Biopsies were taken. Another dilation for esophageal stenosis. Gastric ulcers with nonbleeding visible vessel. Erosive gastritis with hemorrhage with erythema. Recommended by GI specialist to discontinue IV Protonix and start Protonix drip 8 mg/h, Carafate suspension 1 g 4 times daily, Maalox 15 mL p.o. Q4 hourly and continue clear liquid diet. Keeping on isosorbide dinitrate 5 mg twice daily as needed for chest pain. Will follow-up on echocardiogram. All labs and orders were reviewed. Exam Vital Signs Temp Pulse Resp BP Pulse Ox O2 Del Method O2 Flow Rate 98.3 F 86 18 151/80 H 96 Nasal Cannula 3 10/20/24 08:00 10/20/24 09:37 10/20/24 09:37 10/20/24 08:00 10/20/24 08:00 10/20/24 08:00 10/20/24 09:37 Narrative Exam GENERAL APPEARANCE: Patient is AOx3, obese appearing female in mild discomfort due to chest pain. HEENT: NC, AT. MMM. EOMI, clear conjunctiva, oropharynx clear. NECK: Supple without lymphadenopathy. No stiffness or restricted ROM. HEART: Regular rate and regular rhythm, normal S1/S2, no m/r/g LUNGS: CTAB, moving air well. No crackles or wheezes are heard. ABDOMEN: Soft, nontender, nondistended with good bowel sounds heard. BACK: No CVAT, no obvious deformity. EXTREMITIES: Without cyanosis, clubbing or edema. No lower extremity edema noticed. NEUROLOGICAL: Grossly nonfocal. Alert and oriented, moving all 4 extremities. CN not formally tested but appear grossly intact. Observed to ambulate with normal gait. Skin: Warm and dry without any rash. Psych: Mildly anxious however cooperative Objective Labs 10/20/24 05:45 10/20/24 05:45 Labs: Laboratory Results - last 24 hr 10/19/24 10/19/24 10/20/24 06:55 15:25 05:45 WBC 19.2 H D RBC 4.44 Hgb 13.5 D Hct 38.7 MCV 87 MCH 30.4 MCHC 34.9 RDW Std Deviation 41.2 Plt Count 250 D Neut % (Auto) 91 H Lymph % (Auto) 3 L [place] % (Auto) 5 Eos % (Auto) 0 Baso % (Auto) 0 Neut # (Auto) 17.4 H Lymph # (Auto) 0.6 L [place] # (Auto) 1.0 H Eos # (Auto) 0.0 Baso # (Auto) 0.0 Immature Gran # (Auto) 0.11 H Absolute Nucleated RBC 0.00 Immature Gran % 1 H Nucleated RBC % 0 Total Bilirubin 0.3 Troponin I < 0.020 < 0.002 Quality Measures Quality Measures VTE prophylaxis Assessment & Plan Assessment Current Active Medications: Generic Name Dose Route Start Last Admin Trade Name Freq PRN Reason Stop Dose Admin Al Hydrox/Mg Hydrox/Simethicone 15 ml 10/19/24 18:30 10/20/24 06:40 Mg Hyd/Al Hyd/Nam (Maalox Reg) Susp 30 Ml Udc PO 11/18/24 18:29 15 ml Q4HR TYRONE Administration Diltiazem HCl 30 mg 10/20/24 12:00 Diltiazem 30 Mg Tablet PO 11/19/24 11:59 QID TYRONE Hydromorphone HCl 1 mg 10/20/24 01:51 10/20/24 06:37 Hydromorphone Inj 2 Mg/Ml Vial IVP 10/25/24 01:50 1 mg Q3HR PRN Administration PAIN SCALE 7-10 (Severe Hyoscyamine 0.25 mg 10/20/24 14:00 Hyoscyamine Sulf 0.125 Mg Tab.Subl PO 11/19/24 13:59 Q4HR TYRONE Pantoprazole Sodium 80 mg in 100 mls @ 10 mls/hr 10/19/24 18:16 10/20/24 06:47 Protonix/Ns 80mg Iv Premix IV 10/22/24 16:15 10 mls/hr Q10H TYRONE Administration Melatonin 3 mg 10/19/24 21:00 10/19/24 21:18 Melatonin 3 Mg Tablet PO 11/18/24 20:59 3 mg HS TYRONE Administration Ondansetron HCl 4 mg 10/18/24 04:22 10/18/24 08:55 Ondansetron Inj 2 Mg/Ml Inj 2 Ml IV 11/17/24 04:21 4 mg Q6H PRN Administration NAUSEA OR VOMITING Protocol Sennosides 1 tab 10/18/24 09:00 10/20/24 09:13 Senna Tablet PO 11/17/24 08:59 Not Given QDAY TYRONE Protocol Sucralfate 1 gm 10/19/24 21:00 10/20/24 06:40 Sucralfate Susp 1 Gm/10 Ml Udc PO 11/18/24 20:59 1 gm QID TYRONE Administration Plan This 59-year-old female with past medical history significant for asthma and mold allergy ,hypertension, hyperlipidemia, history of of esophageal dysmotility status post dilation with Dr. Ascencio presented to the ED complaining of worsening epigastric pain radiating to her back patient also states she has sensation of something stuck in her throat. Patient was in the ED recently for similar abdominal pain found to have cholelithiasis and was discharged home to be followed up outpatient management upon going home patient's epigastric pain worsened , patient was admitted for acute gastritis and possible however less likely gallstone pancreatitis treatment and management. Cardiology team consulted for concern for pericarditis. # Concern for ?pericarditis, ruled out # Esophageal dysmotility syndrome status post dilation # Chest pain versus epigastric pain # ?Pancreatitis # History of asthma and mold allergy ?Patient presented with chief complaint of epigastric pain, bandlike radiates to the back worsened with laying down. Denied any history of smoking, alcohol use or recreational drug use. No history of trauma. No [id number] medications or herbs. CT scan abdomen revealed gastritis ultrasound of the liver showed cholelithiasis but not cholecystitis. Ultrasound gallbladder showed multiple gallstones. U tox was negative. ? Troponin I has been negative since admission ?Patient is making good urine output and hematocrit 33.8 ? Denied any cardiac history in the past. ? Allergic to molds and uses budesonide as needed ?IV fluid discontinued by primary care team ?Echocardiogram showed EF 60 to 65%. Mild AV sclerosis. Plan: ?No further cardiac workup required. ? EGD revealed grade B reflux esophagitis with no bleeding, nonerosive gastritis with erythema biopsies were taken and recommended by GI specialist to continue sucralfate 1 g 4 times daily, Protonix drip 8 mg/h and Maalox 15 mL Q4 hourly ? Pain management as needed ? Isosorbide dinitrate 5 mg twice daily for chest pain ? Continue PPI therapy # History of essential hypertension # History of hyperlipidemia ? Blood pressure well-controlled ? Patient denied taking any antihypertensive at home Plan: ? Monitor vitals closely and pain management as needed # Reactive leukocytosis # Esophageal stenosis post dilation # Erosive gastritis with erythema #Grade B reflux esophagitis with no bleeding and esophageal ulcers, biopsies taken per EGD findings # Hypokalemia # Normocytic anemia Rest of the management as per primary care team. Thank you very much for consulting cardiology team. Echocardiogram showed normal ejection fraction. Less likely to be cardiac chest pain or pericarditis. Following GI recommendations. Continuing isosorbide dinitrate 5 mg twice daily for chest pain. No further cardiac workup required. Plan of care discussed with manager state, Dr. Humphrey Norman MD, PGY 2
--- NOTE | 2024-10-20 10:13 | ESPR_ITS ---
Documentation for date of: 10/20/24 Subjective - Hospitalist Subjective Interval history: Patient seen and evaluated this AM. She states she had a rough night due to 10/10 chest pain. She received cardizem this morning which has also provided some relief of pain. Patient also received dilaudid overnight. Patient continues to have some nausea and chest pain, but less than yesterday. Patient was only able to tolerate [place] ice this AM. Exam Vital Signs Temp Pulse Resp BP Pulse Ox O2 Del Method O2 Flow Rate 98.3 F 86 18 151/80 H 96 Nasal Cannula 3 10/20/24 08:00 10/20/24 09:37 10/20/24 09:37 10/20/24 08:00 10/20/24 08:00 10/20/24 08:00 10/20/24 09:37 Narrative Gen: No acute distress HEENT: NCAT, PERRLOU, Sclera anicteric, conjunctiva noninjected, oral mucosa moist without erythema Neck: Supple, full range of motion, no LAD CV: RRR, no murmurs, rubs or gallops Resp: CTAB/L, no wheezing, rhonchi or rales GI: abdomen soft, bowel sounds noted, no tenderness to palpation, no guarding or rebound tenderness, no organomegaly Skin: clean, dry, no rashes, lesions or ecchymosis Ext: no clubbing, cyanosis, or edema Neuro: A&O x3, CN II- XII intact b/l, no focal neurological deficits Objective - Hospitalist Labs Diagram: 10/20/24 05:45 Labs: Laboratory Results - last 24 hr 10/19/24 10/19/24 10/20/24 06:55 15:25 05:45 WBC 19.2 H D RBC 4.44 Hgb 13.5 D Hct 38.7 MCV 87 MCH 30.4 MCHC 34.9 RDW Std Deviation 41.2 Plt Count 250 D Neut % (Auto) 91 H Lymph % (Auto) 3 L [place] % (Auto) 5 Eos % (Auto) 0 Baso % (Auto) 0 Neut # (Auto) 17.4 H Lymph # (Auto) 0.6 L [place] # (Auto) 1.0 H Eos # (Auto) 0.0 Baso # (Auto) 0.0 Immature Gran # (Auto) 0.11 H Absolute Nucleated RBC 0.00 Immature Gran % 1 H Nucleated RBC % 0 Total Bilirubin 0.3 Troponin I < 0.020 < 0.002 Assessment & Plan Assessment: Atypical Chest pain, ACS ruled out Suspected esophageal spasms/ hypermotile esophagus Esophageal Dysmotility Esophageal stenosis s/p dilatation Esophageal ulcers LA grade B reflux esophagitis Erosive Gastritis Gastric ulcers Hypertension Acute Pancreatitis, less likely Patient is a 59 year old female with Pmhx of esophageal dysmotility and exposure to black mold who presented to the ED with atypical chest pain that appeared to be sharp and stabbing in nature in retrosternal region. She also reported epigastric pain. She reports pain has been intermittent and worse with laying flat. Pain is relieved with sitting up or laying on her left side. Patient states she had been following GI outpatient and referred to [facility] for further manometry studies with which she has been unable to. Patient also endorses dysphagia with worsening nausea and vomiting. Patient had been seen by surgeon for possible symptomatic cholelithiasis and pancreatitis, but symptoms more consistent with gastritis and esophageal dysmotility. Patient underwent EGD last night and was found to have esophageal ulcers, LA grade B reflux esophagitis s/p biopsy, esophageal stenosis s/p dilatation, gastric ulcers with nonbleeding vessel s/p cauterization, Erosive gastritis and multiple ulcers in antrum. Continue with protonix drip, carafate, maalox and CLD. Will f/u with biopsy results. Patient received 1 dose of cardizem for suspected esophageal spasms as cause for atypical chest pain. Will start isosorbide dinitrate 5mg PO BID instead for better relief of spasms, monitor BP closely. Cardiology following and pending echocardiogram report. However, troponins have been negative and EKG without any ST or T wave changes. Suspicion for pericarditis remains low. Will continue to monitor symptoms for next 48 hrs on protonix drip as per GI recommendations and pain control PRN. Leukocytosis noted, may be reactive. Patient afebrile at this time. Disposition: MedSurg DVT prophylaxis: SCDs GI prophylaxis: PPI IV Diet: Clear liquid Lines: PIV CODE STATUS:Full code Time Spent with Patient Time: Total time spent is greater than 50% in coordination of care (as documented) at patient's floor/unit and/or counseling patient: Time with patient: 25 - 35 minutes Reason for Continued Stay Reason for continued stay: further monitoring, further dx testing, IV pain control, pain uncontrolled and vomiting: IV antiemetics Quality Measures Quality Measures VTE prophylaxis
[2024-10-20 11:49] LABS: Anion Gap 12 (7-16); Blood Urea Nitrogen 10 mg/dL (9-23); Carbon Dioxide 23.2 mMol/L (20.0-31.0); Chloride 105 mMol/L (98-107); Potassium 3.7 mMol/L (3.4-5.1); Sodium 140 mMol/L (136-145)
[2024-10-20 11:50] LABS: Alanine Aminotransferase 26 U/L (10-49); Albumin, Serum 4.3 gm/dL (3.5-5.0); Albumin/Globulin Ratio 2.2 (1.2-2.2); Alkaline Phosphatase 76 U/L (46-116); Aspartate Amino Transferase 16 U/L (0-34); BUN/Creatinine Ratio 13 Ratio (12-20); Calcium 9.2 mg/dL (8.3-10.6); Calcium (Corrected) 9.2 mg/dL (8.5-10.1); Creatinine (Component) 0.8 mg/dL (0.6-1.3); Estimated Creatinine Clearance 88.7 mL/min (>60); Glucose 109 mg/dL (74-106); Osmolality,Calculated 279 (275-295); Total Protein 6.3 gm/dL (5.7-8.2); eGFR > 60 See Note
[2024-10-20 11:55] LABS: Bilirubin,Total 0.4 mg/dL (0.3-1.2)
[2024-10-20] MEDS: HYOSCYAMINE SULF 0.125 MG TAB.SUBL 0.25 MG PO ×3 (13:03→22:49)
--- NOTE | 2024-10-20 13:43 | ESPR_ITS ---
Documentation for date of: 10/20/24 Subjective Subjective Interval history: Patient resting comfortably and I did not wake her up as she had a rough night with pain requiring Dilaudid She is comfortable at the moment Exam Vital Signs Temp Pulse Resp BP Pulse Ox O2 Del Method O2 Flow Rate 98.0 F 89 17 123/72 95 Nasal Cannula 3 10/20/24 12:00 10/20/24 12:00 10/20/24 12:00 10/20/24 12:00 10/20/24 12:00 10/20/24 12:00 10/20/24 12:00 Objective Labs 10/20/24 05:45 10/20/24 05:45 Labs: Laboratory Results - last 24 hr 10/19/24 10/19/24 10/20/24 06:55 15:25 05:45 WBC 19.2 H D RBC 4.44 Hgb 13.5 D Hct 38.7 MCV 87 MCH 30.4 MCHC 34.9 RDW Std Deviation 41.2 Plt Count 250 D Neut % (Auto) 91 H Lymph % (Auto) 3 L [place] % (Auto) 5 Eos % (Auto) 0 Baso % (Auto) 0 Neut # (Auto) 17.4 H Lymph # (Auto) 0.6 L [place] # (Auto) 1.0 H Eos # (Auto) 0.0 Baso # (Auto) 0.0 Immature Gran # (Auto) 0.11 H Absolute Nucleated RBC 0.00 Immature Gran % 1 H Nucleated RBC % 0 Sodium 140 Potassium 3.7 Chloride 105 Carbon Dioxide 23.2 Anion Gap 12 BUN 10 Creatinine 0.8 Estim Creat Clear Calc 88.7 eGFR > 60 BUN/Creatinine Ratio 13 Glucose 109 H Calculated Osmolality 279 Calcium 9.2 Corrected Calcium 9.2 Magnesium 2.0 Total Bilirubin 0.3 0.4 AST 16 ALT 26 Alkaline Phosphatase 76 D Troponin I < 0.002 Total Protein 6.3 Albumin 4.3 D Globulin 2.0 L Albumin/Globulin Ratio 2.2 Impressions Impression: # Biliary pancreatitis # Multiple gastric ulcers including 1 with visible blood vessel requiring endoscopic intervention # Proximal esophageal strictures requiring endoscopic guidewire savory dilatation with [place] 45 and 54 savory dilators # Pain abdomen multifactorial Continue current management Assessment & Plan A&P Narrative # Acute gallstone pancreatitis Recommend either inpatient or outpatient laparoscopic versus open cholecystectomy # Dysphagia with atypical chest pain and abnormal CT scan showing thickening of the distal esophageal wall Informed consent obtained for fiberoptic esophagogastroduodenoscopy with either guidewire savory dilatation or endoscopic balloon dilatation under intravenous moderate sedation with biopsies and therapeutic intervention scheduled for tomorrow Clear liquid diet till 11 AM tomorrow Further evaluation after above Thank you very much for the opportunity to participate in the care of this patient Time Spent With Patient Time: Total time spent is greater than 50% in coordination of care (as documented) at patient's floor/unit and/or counseling patient:
[2024-10-20] MEDS: MELATONIN 3 MG TABLET PO (20:30)
[2024-10-20] MEDS: ISOSORBIDE DINITRATE 10 MG TABLET 5 MG PO (20:31)
[2024-10-21] VITALS (9 sets, daily range): BP systolic 96–145; BP diastolic 58–73; PULSE 92–102; RESP 16–95; TEMP 36.8–37.2; O2SAT 92–95
[2024-10-21] MEDS: PANTOPRAZOLE/NS 80MG IV PREMIX 80 MG/100 ML BAG 10 MG IV ×3 (00:04→19:49)
[2024-10-21] MEDS: HYDROmorphone INJ 2 MG/ML VIAL 1 MG IVP ×3 (00:06→08:01)
[2024-10-21] MEDS: HYOSCYAMINE SULF 0.125 MG TAB.SUBL 0.25 MG PO ×5 (02:47→22:03)
[2024-10-21] MEDS: MG HYD/AL HYD/SIME (Maalox Reg) SUSP 30 ML UDC 15 ML PO ×5 (02:47→22:02)
[2024-10-21] MEDS: SUCRALFATE SUSP 1 GM/10 ML UDC PO ×4 (06:26→20:47)
[2024-10-21 09:13] LABS: Basophils % (Auto) 0 % (0-2.5); Eosinophils % (Auto) 0 % (0-10); Hemoglobin 12.6 g/dL (12.0-16.0); Immature Granulocytes % (Auto) 1 % (0-0); Immature Granulocytes Auto 0.07 Thou/mm3 (0.00-0.00); Lymphocytes # (Auto) 1.3 Thou/mm3 (1.0-4.8); Lymphocytes % (Auto) 9 % (10-50); Mean Corpuscular HGB Conc 34.1 g/dl (31.0-37.0); Mean Corpuscular Hemoglobin 30.1 pg (25.0-35.0); Mean Corpuscular Volume 89 fL (80-100); Monocytes # (Auto) 0.9 Thou/mm3 (0.0-0.8); Monocytes % (Auto) 7 % (0-12); Neutrophils # (Auto) 11.5 Thou/mm3 (1.8-7.7); Neutrophils % (Auto) 83 % (37-80); Nucleated Red Blood Cell % 0 /100 WBC (0); Platelet Count 230 Thou/mm3 (140-440); RDW Standard Deviation 43.3 fL (36.4-46.3); Red Blood Count 4.18 Miln/mm3 (4.00-5.20); White Blood Count 13.9 Thou/mm3 (3.6-11.0)
[2024-10-21 09:34] LABS: Alanine Aminotransferase 20 U/L (10-49); Alkaline Phosphatase 76 U/L (46-116); Anion Gap 6 (7-16); Aspartate Amino Transferase 11 U/L (0-34); BUN/Creatinine Ratio 12 Ratio (12-20); Bilirubin,Total 0.4 mg/dL (0.3-1.2); Blood Urea Nitrogen 11 mg/dL (9-23); Calcium 9.1 mg/dL (8.3-10.6); Calcium (Corrected) 9.1 mg/dL (8.5-10.1); Carbon Dioxide 31.5 mMol/L (20.0-31.0); Chloride 101 mMol/L (98-107); Creatinine (Component) 0.9 mg/dL (0.6-1.3); Estimated Creatinine Clearance 78.9 mL/min (>60); Glucose 128 mg/dL (74-106); Osmolality,Calculated 277 (275-295); Potassium 3.9 mMol/L (3.4-5.1); Sodium 138 mMol/L (136-145); eGFR > 60 See Note
[2024-10-21] MEDS: POLYETHYLENE GLYCOL 17 GM PACKET PO (11:18)
[2024-10-21] MEDS: HYDROmorphone INJ 2 MG/ML VIAL 0.5 MG IVP ×3 (12:11→19:52)
[2024-10-21] MEDS: FAMOTIDINE INJ 10 MG/ML VIAL 2 ML 20 MG IVP (13:42)
--- NOTE | 2024-10-21 15:13 | ESPR_ITS ---
RE: ARINA RILEY : 1965 DATE OF SERVICE: 10/21/2024 SUBJECTIVE: The patient is a 59-year-old lady admitted to the hospital with biliary pancreatitis and gallstones, has severe sharp chest pains bilateral. It continues to be quite significant pain and wants to have surgery done. Does not feels like the patient is in lot of pain today and pleading to have surgery. Pain is quite atypical bilateral chest pain as well as back pain, possibly due to pancreatitis and due to pleurisy. Discussed with Dr. Ascencio as well who feel the patient may benefit from early surgery rather than deferred. OBJECTIVE: Vital Signs: Shows blood pressure 96/58, pulse 100, respirations 18, temperature normal. Neck: Supple. No JVD. Lungs: Decreased breath sounds. No rales, rhonchi. Heart: Sounds regular. Abdomen: Thin and soft. Extremities: No edema. The Hematology say hemoglobin is 12.6, white count down to 13.8. Chemistry panel shows renal function is normal. DIAGNOSTIC DATA: Cardiac enzymes were normal. IMPRESSION: 1. Noncardiac chest pain. 2. Acute pancreatitis with gallbladder cholelithiasis. RECOMMENDATIONS: I am giving cardiac clearance for surgery if Dr. Denny plan on doing surgery. Continue to monitor for any pain. Pain management for now for chest pain. DT: 13:27:05 TT: 15:11:00 Ref: [id number] - TID: [id number]
--- NOTE | 2024-10-21 15:46 | ESPR_ITS ---
<Statement entered by Finn Gray MD - 10/22/24 09:15> Senior Resident Attestation: I supervised/discussed management plan with partner marketing intern physician Dr. Senior, and was involved in the care of this patient. I personally saw and examined the patient and discussed the assessment and plan with the entire medicine team, including my attending. I agree with the assessment and plan as documented. Patient was seen and examined at the bedside. No overnight events. She continues to have nausea and vomiting despite treatment. She can poorly tolerate clear liquid diet. Will follow up with Dr. Ascencio and Dr. Denny for further management. Patient's care was discussed with attending physician, Dr. Rios. Finn Gray MD PGY-2. Documentation for date of: 10/21/24 Subjective Subjective Interval history: 10/21: No overnight events. Patient is seen and examined at bedside patient continues to complain of severe epigastric pain requiring Dilaudid every 4 hours. Patient also complains of lower abdominal pain denies any dysuria. Patient was able to urinate and denies any hematuria. Patient states that she has not had a bowel movement since last Tuesday and requested liquid stool softener because she is unable to swallow. Patient also complains of sharp chest pain that comes and goes and lasts approximately 10 to 15 seconds. Patient also states that she has a history of asthma in the childhood which is exacerbated when exposed to black mold. Currently patient feels like she needs asthma treatment because the nasal cannula oxygen is not helping very much with breathing. Dr. Yin saw the patient this morning and Discussed with Dr. Ascencio as well who feel the patient may benefit from early surgery rather than deferred. will follow up with Dr. Denny if there is plan for cholecystectomy inpatient. patient has no other complaints. Exam Vital Signs Temp Pulse Resp BP Pulse Ox O2 Del Method O2 Flow Rate 98.5 F 100 17 96/58 L 93 L Nasal Cannula 3 10/21/24 12:00 10/21/24 12:00 10/21/24 12:00 10/21/24 12:00 10/21/24 12:00 10/21/24 12:00 10/21/24 12:00 Narrative Exam GENERAL: A&Ox3 . Awake, mildy in distress due to pain in the epigastric region NEURO: no focal neurological deficits HEENT: Atraumatic, Normocephalic. mucous membranes moist. Eyes open, symmetrical, & clear HEART: Normal Heart Sounds LUNGS: Clear to auscultation with no wheezing or crackles. ABDOMEN: soft, non-distended, non-tender, no guarding or rebound tenderness SKIN: No Rash or ecchymoses EXTREMITIES: No edema, tenderness, able to move all 4 extremities, pedal pulses palpated Objective Labs 10/22/24 04:47 10/22/24 04:47 Labs: Laboratory Results - last 24 hr 10/21/24 08:50 WBC 13.9 H D RBC 4.18 Hgb 12.6 Hct 37.0 MCV 89 MCH 30.1 MCHC 34.1 RDW Std Deviation 43.3 Plt Count 230 Neut % (Auto) 83 H Lymph % (Auto) 9 L [place] % (Auto) 7 Eos % (Auto) 0 Baso % (Auto) 0 Neut # (Auto) 11.5 H Lymph # (Auto) 1.3 [place] # (Auto) 0.9 H Eos # (Auto) 0.0 Baso # (Auto) 0.0 Immature Gran # (Auto) 0.07 H Absolute Nucleated RBC 0.00 Immature Gran % 1 H Nucleated RBC % 0 Sodium 138 Potassium 3.9 Chloride 101 Carbon Dioxide 31.5 H Anion Gap 6 L BUN 11 Creatinine 0.9 Estim Creat Clear Calc 78.9 eGFR > 60 BUN/Creatinine Ratio 12 Glucose 128 H Calculated Osmolality 277 Calcium 9.1 Corrected Calcium 9.1 Total Bilirubin 0.4 AST 11 ALT 20 Alkaline Phosphatase 76 Total Protein 6.0 Albumin 4.0 Globulin 2.0 L Albumin/Globulin Ratio 2.0 Quality Measures Quality Measures VTE prophylaxis Assessment & Plan Assessment Current Active Medications: Generic Name Dose Route Start Last Admin Trade Name Freq PRN Reason Stop Dose Admin Al Hydrox/Mg Hydrox/Simethicone 15 ml 10/19/24 18:30 10/21/24 13:41 Mg Hyd/Al Hyd/Nam (Maalox Reg) Susp 30 Ml Udc PO 11/18/24 18:29 15 ml Q4HR TYRONE Administration Hydromorphone HCl 0.5 mg 10/21/24 11:12 10/21/24 12:11 Hydromorphone Inj 2 Mg/Ml Vial IVP 10/25/24 01:50 0.5 mg Q4HR PRN Administration PAIN SCALE 7-10 (Severe Hyoscyamine 0.25 mg 10/20/24 14:00 10/21/24 13:41 Hyoscyamine Sulf 0.125 Mg Tab.Subl PO 11/19/24 13:59 0.25 mg Q4HR TYRONE Administration Pantoprazole Sodium 80 mg in 100 mls @ 10 mls/hr 10/19/24 18:16 10/21/24 09:24 Protonix/Ns 80mg Iv Premix IV 10/22/24 16:15 10 mls/hr Q10H TYRONE Administration Isosorbide Dinitrate 5 mg 10/20/24 21:00 10/21/24 08:00 Isosorbide Dinitrate 10 Mg Tablet PO 11/19/24 20:59 Not Given BID TYRONE Melatonin 3 mg 10/19/24 21:00 10/20/24 20:30 Melatonin 3 Mg Tablet PO 11/18/24 20:59 3 mg HS TYRONE Administration Ondansetron HCl 4 mg 10/18/24 04:22 10/18/24 08:55 Ondansetron Inj 2 Mg/Ml Inj 2 Ml IV 11/17/24 04:21 4 mg Q6H PRN Administration NAUSEA OR VOMITING Protocol Polyethylene Glycol 17 gm 10/21/24 10:45 10/21/24 11:18 Polyethylene Glycol 17 Gm Packet PO 11/20/24 10:44 17 gm QDAY TYRONE Administration Sennosides 1 tab 10/18/24 09:00 10/21/24 08:01 Senna Tablet PO 11/17/24 08:59 Not Given QDAY TYRONE Protocol Sucralfate 1 gm 10/19/24 21:00 10/21/24 11:18 Sucralfate Susp 1 Gm/10 Ml Udc PO 11/18/24 20:59 1 gm QID TYRONE Administration Plan Ms. Rogers is a 59-year-old female with past medical history significant for hypertension, hyperlipidemia, history of of esophageal dysmotility status post dilation with Dr. Ascencio presented to the ED complaining of worsening epigastric pain radiating to her back patient also states she has sensation of something stuck in her throat. Patient was in the ED recently for similar abdominal pain found to have cholelithiasis and was discharged home to be followed up outpatient management upon going home patient's epigastric pain worsened , patient was admitted for acute gastritis and possible however less likely gallstone pancreatitis treatment and management. #Epigastric pain. #Cholelithiasis. #?Pancreatitis. -Patient presented with chief complaints of epigastric pain, bandlike, radiates to the back, getting worse by laying down -Patient denies any history of smoking, alcohol use, or any recreational drug use, no recent trauma, no [id number] medication or herbs -Labs revealed leukocytosis and elevated lipase 200 -CT abdomen revealed possible gastritis, ultrasound of the liver revealed cholelithiasis, but no cholecystitis -Ultrasoun of gallbladder-multiple gallstones Plan: -IVF 200 cc/h NS. -Pain management with morphine as needed. -CLD, pending EGD -PPI 40 IV twice daily. -Pepcid 20 Mg IV x 1 given -Dr. Ascencio was consulted, recommendations appreciated. -Surgery consulted, recommendations appreciated. -echo ordered. #Hx of Asthma -Patient has history of asthma in childhood which recently was exacerbated by exposure to black mold Plan: ?DuoNebs -Solu-Medrol 40 Mg x 1 given #History of esophageal dysmotility s/p dilation. -Patient stated that she follows Dr. Ascencio -consulting Dr. Ascencio for Esophageal dysmotility, EGD scheduled for today. #History of primary hypertension. ?Blood pressure well-controlled. -Waiting med reconcile. #Hypokalemia, resolved. -Replaced -Monitor replace as needed Disposition: MedSurg DVT prophylaxis: SCDs GI prophylaxis: PPI IV Diet: Clear liquid Lines: PIV CODE STATUS:Full code Assessment and plan discussed with my senior resident Dr. Gray & attending physician Dr. Gabriel Senior (PGY-1)- Internal medicine resident Attending Provider Attestation/Addendum Augusta Stanley, , attest that I was physically present for the [place] portions of the service and evaluated the patient with the resident and I reviewed and discussed the case with the resident and agree with the resident's findings and plans of care as documented above Patient seen and evaluated this AM. She continues to have epigastric pain with which she states is worse laying on her back. She states she has occasional nausea and vomiting with lemon ice. Will recall surgery for further recommendations due to persistent pain.
--- NOTE | 2024-10-21 18:25 | PD.IMPROG ---
Documentation for date of: 10/21/24 Subjective Subjective Interval history: Patient continues to have severe epigastric right lower quadrant Fermin pain Dr. Edna Yin called me and case discussed It is better to have the gallbladder surgery while she is here in the hospital and not wait as an outpatient because of the severity of the abdominal pain although she does have gastric ulcers requiring endoscopic intervention I will call Dr. Denny and discussed the case with him hopefully he will be okay to do Exam Vital Signs Temp Pulse Resp BP Pulse Ox O2 Del Method O2 Flow Rate 98.5 F 102 H 16 117/69 93 L Nasal Cannula 4 10/21/24 16:00 10/21/24 16:00 10/21/24 16:00 10/21/24 16:00 10/21/24 16:00 10/21/24 16:00 10/21/24 16:00 Objective Labs 10/21/24 08:50 10/21/24 08:50 Labs: Laboratory Results - last 24 hr 10/21/24 08:50 WBC 13.9 H D RBC 4.18 Hgb 12.6 Hct 37.0 MCV 89 MCH 30.1 MCHC 34.1 RDW Std Deviation 43.3 Plt Count 230 Neut % (Auto) 83 H Lymph % (Auto) 9 L [place] % (Auto) 7 Eos % (Auto) 0 Baso % (Auto) 0 Neut # (Auto) 11.5 H Lymph # (Auto) 1.3 [place] # (Auto) 0.9 H Eos # (Auto) 0.0 Baso # (Auto) 0.0 Immature Gran # (Auto) 0.07 H Absolute Nucleated RBC 0.00 Immature Gran % 1 H Nucleated RBC % 0 Sodium 138 Potassium 3.9 Chloride 101 Carbon Dioxide 31.5 H Anion Gap 6 L BUN 11 Creatinine 0.9 Estim Creat Clear Calc 78.9 eGFR > 60 BUN/Creatinine Ratio 12 Glucose 128 H Calculated Osmolality 277 Calcium 9.1 Corrected Calcium 9.1 Total Bilirubin 0.4 AST 11 ALT 20 Alkaline Phosphatase 76 Total Protein 6.0 Albumin 4.0 Globulin 2.0 L Albumin/Globulin Ratio 2.0 Impressions Impression: # Biliary pancreatitis # Gastric ulcer # Noncardiogenic chest pain most likely biliary tract As under HPI Assessment & Plan A&P Narrative # Acute gallstone pancreatitis Recommend either inpatient or outpatient laparoscopic versus open cholecystectomy # Dysphagia with atypical chest pain and abnormal CT scan showing thickening of the distal esophageal wall Informed consent obtained for fiberoptic esophagogastroduodenoscopy with either guidewire savory dilatation or endoscopic balloon dilatation under intravenous moderate sedation with biopsies and therapeutic intervention scheduled for tomorrow Clear liquid diet till 11 AM tomorrow Further evaluation after above Thank you very much for the opportunity to participate in the care of this patient Time Spent With Patient Time: Total time spent is greater than 50% in coordination of care (as documented) at patient's floor/unit and/or counseling patient:
[2024-10-21] MEDS: MELATONIN 3 MG TABLET PO (20:46)
[2024-10-21] MEDS: ISOSORBIDE DINITRATE 10 MG TABLET 5 MG PO (20:47)
[2024-10-22] VITALS (12 sets, daily range): BP systolic 101–135; BP diastolic 65–76; PULSE 67–97; RESP 17–20; TEMP 36.1–37.1; O2SAT 93–99
[2024-10-22] MEDS: HYDROmorphone INJ 2 MG/ML VIAL 0.5 MG IVP ×5 (00:04→18:14)
[2024-10-22] MEDS: BUDESONIDE RT 0.5 MG/2 ML NEBU INH ×3 (00:36→18:35)
[2024-10-22] MEDS: HYOSCYAMINE SULF 0.125 MG TAB.SUBL 0.25 MG PO ×6 (01:48→21:33)
[2024-10-22] MEDS: MG HYD/AL HYD/SIME (Maalox Reg) SUSP 30 ML UDC 15 ML PO ×6 (01:48→21:34)
[2024-10-22 05:37] LABS: Basophils % (Auto) 0 % (0-2.5); Eosinophils % (Auto) 0 % (0-10); Hematocrit 34.6 % (36.0-46.0); Hemoglobin 11.9 g/dL (12.0-16.0); Immature Granulocytes % (Auto) 0 % (0-0); Immature Granulocytes Auto 0.06 Thou/mm3 (0.00-0.00); Lymphocytes # (Auto) 1.2 Thou/mm3 (1.0-4.8); Lymphocytes % (Auto) 9 % (10-50); Mean Corpuscular HGB Conc 34.4 g/dl (31.0-37.0); Mean Corpuscular Volume 87 fL (80-100); Monocytes # (Auto) 0.7 Thou/mm3 (0.0-0.8); Monocytes % (Auto) 6 % (0-12); Neutrophils # (Auto) 11.4 Thou/mm3 (1.8-7.7); Neutrophils % (Auto) 85 % (37-80); Nucleated Red Blood Cell % 0 /100 WBC (0); Platelet Count 255 Thou/mm3 (140-440); RDW Standard Deviation 41.3 fL (36.4-46.3); Red Blood Count 3.97 Miln/mm3 (4.00-5.20); White Blood Count 13.4 Thou/mm3 (3.6-11.0)
[2024-10-22 06:20] LABS: Alanine Aminotransferase 16 U/L (10-49); Albumin/Globulin Ratio 1.6 (1.2-2.2); Alkaline Phosphatase 76 U/L (46-116); Anion Gap 8 (7-16); Aspartate Amino Transferase 11 U/L (0-34); BUN/Creatinine Ratio 14 Ratio (12-20); Bilirubin,Total 0.3 mg/dL (0.3-1.2); Blood Urea Nitrogen 11 mg/dL (9-23); Calcium 9.4 mg/dL (8.3-10.6); Calcium (Corrected) 9.4 mg/dL (8.5-10.1); Carbon Dioxide 27.4 mMol/L (20.0-31.0); Chloride 100 mMol/L (98-107); Creatinine (Component) 0.8 mg/dL (0.6-1.3); Estimated Creatinine Clearance 88.7 mL/min (>60); Globulin 2.5 gm/dL (2.3-3.5); Glucose 137 mg/dL (74-106); Osmolality,Calculated 271 (275-295); Potassium 3.7 mMol/L (3.4-5.1); Sodium 135 mMol/L (136-145); Total Protein 6.5 gm/dL (5.7-8.2); eGFR > 60 See Note
[2024-10-22] MEDS: PANTOPRAZOLE/NS 80MG IV PREMIX 80 MG/100 ML BAG 10 MG IV (06:21)
[2024-10-22] MEDS: SUCRALFATE SUSP 1 GM/10 ML UDC PO ×3 (06:24→21:34)
--- NOTE | 2024-10-22 07:46 | PC.NURSE ---
Patient requesting breathing treatment, none available at this time. Contacted who stated she would place order for budesonide x1. Patient updated that as soon as order is placed and verified that RT would be called to administer the treatment. Rt has been to patient bedside and stated that lung sounds were clear and patient was not in any distress. Patient upset and started yelling at this rn stating she wanted a social group worker sent to her room immediately. Spent Grain Dryer notified
--- NOTE | 2024-10-22 08:26 | PC.NURSE ---
notified that patient does not want the albuterol tx that was ordered. Patient is requesting budesonide. Per provider she is currently rounding and will be bedside to speak with patient in 30 min. RT notified
[2024-10-22] MEDS: ISOSORBIDE DINITRATE 10 MG TABLET 5 MG PO ×2 (09:36→21:33)
--- NOTE | 2024-10-22 11:04 | ESPR_ITS ---
<Statement entered by Ruth Yin MD - 10/24/24 18:58> The patient evaluated by me personally along with resident physician PGY [address] Beyiq patient is clinically stable to have cholecystectomy chest pain is noncardiac in nature possibly related to her other issues. Documentation for date of: 10/22/24 Subjective Subjective Interval history: This patient 59-year-old female with past medical history of asthma and esophageal dysmotility managed by Dr. Ascencio as outpatient presented with worsening epigastric pain/chest pain radiating to the back described as sharp, constant worsened when lying flat and relieved with turning on her side. Also reported to have sensation of something stuck in her throat associated with nausea and vomiting and decreased appetite. She also endorsed mild shortness of breath from last 4 days. In the ED, lab evaluation showed leukocytosis, hypokalemia and mildly elevated lipase. Ultrasound of the gallbladder revealed cholelithiasis without evidence of cholecystitis and mild hepatomegaly with fatty liver. CT abdomen was performed which showed no acute intrathoracic pathology, cholelithiasis and moderate wall thickening of distal body and antrum pyloric region of the stomach indicating gastritis in the appropriate clinical context. She received normal saline, Zofran and morphine in the ED. Patient met 2 out of 3 criteria for epigastric bandlike pain with elevated lipase. Currently getting managed for acute gastritis versus pancreatitis. Cardiology team consulted given concern for pericarditis. Patient endorsed having chest pain which comes and goes last for 4 minutes and is spasmodic. She describes her pain as sharp in character, radiating to the back and is like colicky. There is no tenderness on chest palpation. She reported that she took aspirin 4 days ago when she had this pain at home. Aspirin helped a little bit. She also endorsed bloating sensation. Denied any orthopnea and PND. No lower extremity swelling noticed. Patient did report having history of asthma and mold allergy therefore she takes budesonide as needed. GI specialist has been consulted for possible EGD. Patient received aggressive IV fluid resuscitation for management of pancreatitis. EKG showed normal sinus rhythm. Will likely repeat another EKG to evaluate better and follow-up on echocardiogram. Agreeable to continue IV fluid resuscitation and await EEG results. Patient does not seem to have significant cardiac history and does have a history of high blood pressure but does not seem to take anything at home. 10/20/2024: Patient was seen and examined at the bedside. She continues to complain of chest pain. Vitals blood pressure 151/80. Heart rate stable. WBC shows reactive leukocytosis. Hemoglobin stable. Chemistry panel pending. EGD showed esophageal ulcers, grade B reflux esophagitis with no bleeding. Biopsies were taken. Another dilation for esophageal stenosis. Gastric ulcers with nonbleeding visible vessel. Erosive gastritis with hemorrhage with erythema. Recommended by GI specialist to discontinue IV Protonix and start Protonix drip 8 mg/h, Carafate suspension 1 g 4 times daily, Maalox 15 mL p.o. Q4 hourly and continue clear liquid diet. Keeping on isosorbide dinitrate 5 mg twice daily as needed for chest pain. Will follow-up on echocardiogram. All labs and orders were reviewed. 10/22/2024: Patient was seen and examined at the bedside. She was reported to have been right upper quadrant pain and continues to have mild epigastric discomfort. Vitals were stable. Labs revealed leukocytosis, hemoglobin 11.9. Chemistry panel was unremarkable. General surgery was consulted and plan for laparoscopic cholecystectomy tomorrow. Agreeable to the plan of care. Recommended to continue current medical therapy for esophageal dysmotility syndrome. All labs and orders were reviewed. Exam Vital Signs Temp Pulse Resp BP Pulse Ox O2 Del Method O2 Flow Rate 96.9 F 86 20 135/76 H 99 Nasal Cannula 2 10/22/24 08:00 10/22/24 10:50 10/22/24 10:50 10/22/24 09:36 10/22/24 10:50 10/22/24 08:00 10/22/24 10:50 Narrative Exam GENERAL APPEARANCE: Patient is AOx3, obese appearing female in mild discomfort due to right upper quadrant pain HEENT: NC, AT. MMM. EOMI, clear conjunctiva, oropharynx clear. NECK: Supple without lymphadenopathy. No stiffness or restricted ROM. HEART: Regular rate and regular rhythm, normal S1/S2, no m/r/g LUNGS: CTAB, moving air well. No crackles or wheezes are heard. ABDOMEN: Soft, nontender, nondistended with good bowel sounds heard. BACK: No CVAT, no obvious deformity. EXTREMITIES: Without cyanosis, clubbing or edema. No lower extremity edema noticed. NEUROLOGICAL: Grossly nonfocal. Alert and oriented, moving all 4 extremities. CN not formally tested but appear grossly intact. Observed to ambulate with normal gait. Skin: Warm and dry without any rash. Psych: Mildly anxious however cooperative Objective Labs 10/22/24 04:47 10/22/24 04:47 Labs: Laboratory Results - last 24 hr 10/22/24 04:47 WBC 13.4 H RBC 3.97 L Hgb 11.9 L Hct 34.6 L MCV 87 MCH 30.0 MCHC 34.4 RDW Std Deviation 41.3 Plt Count 255 Neut % (Auto) 85 H Lymph % (Auto) 9 L [place] % (Auto) 6 Eos % (Auto) 0 Baso % (Auto) 0 Neut # (Auto) 11.4 H Lymph # (Auto) 1.2 [place] # (Auto) 0.7 Eos # (Auto) 0.0 Baso # (Auto) 0.0 Immature Gran # (Auto) 0.06 H Absolute Nucleated RBC 0.00 Immature Gran % 0 Nucleated RBC % 0 Sodium 135 L Potassium 3.7 Chloride 100 Carbon Dioxide 27.4 Anion Gap 8 BUN 11 Creatinine 0.8 Estim Creat Clear Calc 88.7 eGFR > 60 BUN/Creatinine Ratio 14 Glucose 137 H Calculated Osmolality 271 L Calcium 9.4 Corrected Calcium 9.4 Total Bilirubin 0.3 AST 11 ALT 16 Alkaline Phosphatase 76 Total Protein 6.5 Albumin 4.0 Globulin 2.5 Albumin/Globulin Ratio 1.6 Quality Measures Quality Measures VTE prophylaxis Assessment & Plan Assessment Current Active Medications: Generic Name Dose Route Start Last Admin Trade Name Freq PRN Reason Stop Dose Admin Al Hydrox/Mg Hydrox/Simethicone 15 ml 10/19/24 18:30 10/22/24 09:35 Mg Hyd/Al Hyd/Nam (Maalox Reg) Susp 30 Ml Udc PO 11/18/24 18:29 15 ml Q4HR TYRONE Administration Budesonide 0.5 mg 10/22/24 10:45 10/22/24 10:49 Budesonide Rt 0.5 Mg/2 Ml Nebu INH 11/21/24 10:44 0.5 mg BIDRT TYRONE Administration Hydromorphone HCl 0.5 mg 10/21/24 11:12 10/22/24 09:34 Hydromorphone Inj 2 Mg/Ml Vial IVP 10/25/24 01:50 0.5 mg Q4HR PRN Administration PAIN SCALE 7-10 (Severe Hyoscyamine 0.25 mg 10/20/24 14:00 10/22/24 09:38 Hyoscyamine Sulf 0.125 Mg Tab.Subl PO 11/19/24 13:59 0.25 mg Q4HR TYRONE Administration Pantoprazole Sodium 80 mg in 100 mls @ 10 mls/hr 10/19/24 18:16 10/22/24 06:21 Protonix/Ns 80mg Iv Premix IV 10/22/24 16:15 10 mls/hr Q10H TYRONE Administration Isosorbide Dinitrate 5 mg 10/20/24 21:00 10/22/24 09:36 Isosorbide Dinitrate 10 Mg Tablet PO 11/19/24 20:59 5 mg BID TYRONE Administration Melatonin 3 mg 10/19/24 21:00 10/21/24 20:46 Melatonin 3 Mg Tablet PO 11/18/24 20:59 3 mg HS TYRONE Administration Ondansetron HCl 4 mg 10/18/24 04:22 10/18/24 08:55 Ondansetron Inj 2 Mg/Ml Inj 2 Ml IV 11/17/24 04:21 4 mg Q6H PRN Administration NAUSEA OR VOMITING Protocol Polyethylene Glycol 17 gm 10/21/24 10:45 10/22/24 09:42 Polyethylene Glycol 17 Gm Packet PO 11/20/24 10:44 Not Given QDAY TYRONE Sennosides 1 tab 10/18/24 09:00 10/22/24 09:43 Senna Tablet PO 11/17/24 08:59 Not Given QDAY TYRONE Protocol Sucralfate 1 gm 10/19/24 21:00 10/22/24 06:24 Sucralfate Susp 1 Gm/10 Ml Udc PO 11/18/24 20:59 1 gm QID TYRONE Administration Plan This 59-year-old female with past medical history significant for asthma and mold allergy ,hypertension, hyperlipidemia, history of of esophageal dysmotility status post dilation with Dr. Ascencio presented to the ED complaining of worsening epigastric pain radiating to her back patient also states she has sensation of something stuck in her throat. Patient was in the ED recently for similar abdominal pain found to have cholelithiasis and was discharged home to be followed up outpatient management upon going home patient's epigastric pain worsened , patient was admitted for acute gastritis and possible however less likely gallstone pancreatitis treatment and management. Cardiology team consulted for concern for pericarditis. # Concern for ?pericarditis, ruled out # Esophageal dysmotility syndrome status post dilation # Chest pain versus epigastric pain # ?Pancreatitis # History of asthma and mold allergy # Elective laparoscopic cholecystectomy likely tomorrow: ?Patient presented with chief complaint of epigastric pain, bandlike radiates to the back worsened with laying down. Denied any history of smoking, alcohol use or recreational drug use. No history of trauma. No [id number] medications or herbs. CT scan abdomen revealed gastritis ultrasound of the liver showed cholelithiasis but not cholecystitis. Ultrasound gallbladder showed multiple gallstones. U tox was negative. ? Troponin I has been negative since admission ?Patient is making good urine output and hematocrit 33.8 ? Denied any cardiac history in the past. ? Allergic to molds and uses budesonide as needed ?IV fluid discontinued by primary care team ?Echocardiogram showed EF 60 to 65%. Mild AV sclerosis. Plan: ? General Surgery was consulted by primary care team and plan for laparoscopic cholecystectomy tomorrow due to persistent epigastric and right upper quadrant discomfort ? EGD revealed grade B reflux esophagitis with no bleeding, nonerosive gastritis with erythema biopsies were taken and recommended by GI specialist to continue sucralfate 1 g 4 times daily, Protonix drip 8 mg/h and Maalox 15 mL Q4 hourly ? Pain management as needed ? Isosorbide dinitrate 5 mg twice daily for chest pain ? Continue PPI therapy # History of essential hypertension # History of hyperlipidemia ? Blood pressure well-controlled ? Patient denied taking any antihypertensive at home Plan: ? Monitor vitals closely and pain management as needed # Reactive leukocytosis # Esophageal stenosis post dilation # Erosive gastritis with erythema #Grade B reflux esophagitis with no bleeding and esophageal ulcers, biopsies taken per EGD findings # Hypokalemia # Normocytic anemia Rest of the management as per primary care team. Thank you very much for consulting cardiology team. Echocardiogram showed normal ejection fraction. Less likely to be cardiac chest pain or pericarditis. Continuing isosorbide dinitrate 5 mg twice daily for chest pain. No further cardiac workup required. Agreeable to the current plan for laparoscopic cholecystectomy tomorrow. Plan of care discussed with brass molder helper, Dr. Humphrey Norman MD, PGY 2
--- NOTE | 2024-10-22 12:27 | PD.SURPROG ---
Documentation for date of: 10/22/24 Subjective Subjective Narrative: Patient is seen and examined. She continues to have epigastric and right upper quadrant pain and has not been able to tolerate diet. Exam Vital Signs Temp Pulse Resp BP Pulse Ox O2 Del Method O2 Flow Rate 98.1 F 67 17 101/69 95 Nasal Cannula 2 10/22/24 12:00 10/22/24 12:00 10/22/24 12:00 10/22/24 12:00 10/22/24 12:00 10/22/24 12:00 10/22/24 12:00 Constitutional Constitutional: no acute distress Routine Abdominal Exam Abdominal: Present soft, normoactive bowel sounds and tenderness (Right upper quadrant tenderness to deep palpation, no rebound tenderness or peritonitis at this time); Absent distended Assessment & Plan Assessment Additional comments: Symptomatic cholelithiasis Plan Keep patient n.p.o. after midnight and plan for laparoscopic possible open cholecystectomy tomorrow. Risks include but not limited to infection, bleeding, injury to bowel, liver, stomach, bile duct, retained stone, bile leak, abdominal sepsis and or abdominal abscess, need for further procedure and or operation discussed with the patient. Benefits and alternatives explained to her, all her questions answered, she agreed and consented to proceed with the operation.
--- NOTE | 2024-10-22 14:53 | PC.NURSE ---
Notified that patient is requesting lidocaine patches for her lower back and shoulder. Provider stated she would place order
[2024-10-22] MEDS: LIDOCAINE 5% 1 PATCH TOP (15:06)
--- NOTE | 2024-10-22 15:35 | ESPR_ITS ---
<Statement entered by Finn Gray MD - 10/23/24 15:38> Senior Resident Attestation: I supervised/discussed management plan with sports internship physician Dr. Senior, and was involved in the care of this patient. I personally saw and examined the patient and discussed the assessment and plan with the entire medicine team, including my attending. I agree with the assessment and plan as documented. Patient was seen and examined at the bedside. No overnight events. She continues to have abdominal pain and nausea. She is planned for cholecystectomy tomorrow. We will continue current management and monitor patient. Patient's care was discussed with attending physician, Dr. Rios. Finn Gray MD PGY-2. Documentation for date of: 10/22/24 Subjective Subjective Interval history: 10/21: No overnight events. Patient is seen and examined at bedside patient continues to complain of severe epigastric pain requiring Dilaudid every 4 hours. Patient also complains of lower abdominal pain denies any dysuria. Patient was able to urinate and denies any hematuria. Patient states that she has not had a bowel movement since last Tuesday and requested liquid stool softener because she is unable to swallow. Patient also complains of sharp chest pain that comes and goes and lasts approximately 10 to 15 seconds. Patient also states that she has a history of asthma in the childhood which is exacerbated when exposed to black mold. Currently patient feels like she needs asthma treatment because the nasal cannula oxygen is not helping very much with breathing. Dr. Yin saw the patient this morning and Discussed with Dr. Ascencio as well who feel the patient may benefit from early surgery rather than deferred. will follow up with Dr. Denny if there is plan for cholecystectomy inpatient. patient has no other complaints. 10/22: Overnight patient continued to complain of pain this morning patient is seen and examined at bedside. She seems very agitated and continues to complain about severe epigastric pain. She states that after receiving budesonide breathing treatment last night her chest pain went away. Patient states that she cannot have DuoNebs with albuterol because she claims allergy, it causes her to have palpitations. Patient states that she previously has used budesonide nasal spray several times which works best for her and last night she received a dose. Patient also complained about plain and is requesting Dilaudid more often and scheduled. Patient is explained that Dilaudid is on as needed order and when she is in pain she would have to asked the nurse to see if it is time for the next dose. Patient states that no other medications work for her pain and demands that the nurse wakes her up to give her Dilaudid regardless of her being in pain or not. Spoke to Dr. Ascencio, who states the gastric ulcer have already been cauterized and there is no need for therapeutic endoscopy as it is already done. Dr. Denny has plans for cholecystectomy tomorrow patient will be n.p.o. at midnight. Exam Vital Signs Temp Pulse Resp BP Pulse Ox O2 Del Method O2 Flow Rate 98.1 F 67 17 101/69 95 Nasal Cannula 2 10/22/24 12:00 10/22/24 12:00 10/22/24 12:00 10/22/24 12:00 10/22/24 12:00 10/22/24 12:00 10/22/24 12:00 Narrative Exam GENERAL: A&Ox3 . Awake, mildy in distress due to pain in the epigastric region NEURO: no focal neurological deficits HEENT: Atraumatic, Normocephalic. mucous membranes moist. Eyes open, symmetrical, & clear HEART: Normal Heart Sounds LUNGS: Clear to auscultation with no wheezing or crackles. ABDOMEN: soft, non-distended, non-tender, no guarding or rebound tenderness SKIN: No Rash or ecchymoses EXTREMITIES: No edema, tenderness, able to move all 4 extremities, pedal pulses palpated Objective Labs 10/22/24 04:47 10/22/24 04:47 Labs: Laboratory Results - last 24 hr 10/22/24 04:47 WBC 13.4 H RBC 3.97 L Hgb 11.9 L Hct 34.6 L MCV 87 MCH 30.0 MCHC 34.4 RDW Std Deviation 41.3 Plt Count 255 Neut % (Auto) 85 H Lymph % (Auto) 9 L Adams % (Auto) 6 Eos % (Auto) 0 Baso % (Auto) 0 Neut # (Auto) 11.4 H Lymph # (Auto) 1.2 Adams # (Auto) 0.7 Eos # (Auto) 0.0 Baso # (Auto) 0.0 Immature Gran # (Auto) 0.06 H Absolute Nucleated RBC 0.00 Immature Gran % 0 Nucleated RBC % 0 Sodium 135 L Potassium 3.7 Chloride 100 Carbon Dioxide 27.4 Anion Gap 8 BUN 11 Creatinine 0.8 Estim Creat Clear Calc 88.7 eGFR > 60 BUN/Creatinine Ratio 14 Glucose 137 H Calculated Osmolality 271 L Calcium 9.4 Corrected Calcium 9.4 Total Bilirubin 0.3 AST 11 ALT 16 Alkaline Phosphatase 76 Total Protein 6.5 Albumin 4.0 Globulin 2.5 Albumin/Globulin Ratio 1.6 Quality Measures Quality Measures VTE prophylaxis Assessment & Plan Assessment Current Active Medications: Generic Name Dose Route Start Last Admin Trade Name Freq PRN Reason Stop Dose Admin Al Hydrox/Mg Hydrox/Simethicone 15 ml 10/19/24 18:30 10/22/24 13:27 Mg Hyd/Al Hyd/Nam (Maalox Reg) Susp 30 Ml Udc PO 11/18/24 18:29 15 ml Q4HR TYRONE Administration Budesonide 0.5 mg 10/22/24 10:45 10/22/24 10:49 Budesonide Rt 0.5 Mg/2 Ml Nebu INH 11/21/24 10:44 0.5 mg BIDRT TYRONE Administration Hydromorphone HCl 0.5 mg 10/21/24 11:12 10/22/24 13:27 Hydromorphone Inj 2 Mg/Ml Vial IVP 10/25/24 01:50 0.5 mg Q4HR PRN Administration PAIN SCALE 7-10 (Severe Hyoscyamine 0.25 mg 10/20/24 14:00 10/22/24 13:27 Hyoscyamine Sulf 0.125 Mg Tab.Subl PO 11/19/24 13:59 0.25 mg Q4HR TYRONE Administration Pantoprazole Sodium 80 mg in 100 mls @ 10 mls/hr 10/19/24 18:16 10/22/24 06:21 Protonix/Ns 80mg Iv Premix IV 10/22/24 16:15 10 mls/hr Q10H TYRONE Administration Isosorbide Dinitrate 5 mg 10/20/24 21:00 10/22/24 09:36 Isosorbide Dinitrate 10 Mg Tablet PO 11/19/24 20:59 5 mg BID TYRONE Administration Lidocaine 1 patch 10/22/24 15:00 10/22/24 15:06 Lidocaine 5% 1 Patch TOP 11/21/24 14:59 1 patch QDAY TYRONE Administration Protocol Melatonin 3 mg 10/19/24 21:00 10/21/24 20:46 Melatonin 3 Mg Tablet PO 11/18/24 20:59 3 mg HS TYRONE Administration Ondansetron HCl 4 mg 10/18/24 04:22 10/18/24 08:55 Ondansetron Inj 2 Mg/Ml Inj 2 Ml IV 11/17/24 04:21 4 mg Q6H PRN Administration NAUSEA OR VOMITING Protocol Polyethylene Glycol 17 gm 10/21/24 10:45 10/22/24 09:42 Polyethylene Glycol 17 Gm Packet PO 11/20/24 10:44 Not Given QDAY TYRONE Sennosides 1 tab 10/18/24 09:00 10/22/24 09:43 Senna Tablet PO 11/17/24 08:59 Not Given QDAY TYRONE Protocol Sucralfate 1 gm 10/19/24 21:00 10/22/24 11:20 Sucralfate Susp 1 Gm/10 Ml Udc PO 11/18/24 20:59 Not Given QID TYRONE Plan Ms. Rogers is a 59-year-old female with past medical history significant for hypertension, hyperlipidemia, history of of esophageal dysmotility status post dilation with Dr. Ascencio presented to the ED complaining of worsening epigastric pain radiating to her back patient also states she has sensation of something stuck in her throat. Patient was in the ED recently for similar abdominal pain found to have cholelithiasis and was discharged home to be followed up outpatient management upon going home patient's epigastric pain worsened , patient was admitted for acute gastritis and possible however less likely gallstone pancreatitis treatment and management. #Epigastric pain. #Cholelithiasis. #?Pancreatitis. -Patient presented with chief complaints of epigastric pain, bandlike, radiates to the back, getting worse by laying down -Patient denies any history of smoking, alcohol use, or any recreational drug use, no recent trauma, no [id number] medication or herbs -Labs revealed leukocytosis and elevated lipase 200 -CT abdomen revealed possible gastritis, ultrasound of the liver revealed cholelithiasis, but no cholecystitis -Ultrasoun of gallbladder-multiple gallstones Plan: -IVF 200 cc/h NS. -Pain management with morphine as needed. -CLD, pending EGD -PPI 40 IV twice daily. -Pepcid 20 Mg IV x 1 given -Dr. Ascencio was consulted, recommendations appreciated. -Surgery consulted, recommendations appreciated. -Plans for cholecystectomy tomorrow, n.p.o. at midnight -echo findings- LVEF 65%, trace mitral and trace tricuspid regurgitation , Mild AV sclerosis without stenosis. #Hx of Asthma -Patient has history of asthma in childhood which recently was exacerbated by exposure to black mold Plan: ? Budesonide breathing treatments ordered -Solu-Medrol 40 Mg x 1 given on 10/21 #History of esophageal dysmotility s/p dilation. -Patient stated that she follows Dr. Ascencio -consulting Dr. Ascencio for Esophageal dysmotility, EGD scheduled for today. #History of primary hypertension. ?Blood pressure well-controlled. -Waiting med reconcile. #Hypokalemia, resolved. -Replaced -Monitor replace as needed Disposition: MedSurg pending cholecystectomy DVT prophylaxis: SCDs GI prophylaxis: PPI IV Diet: Clear liquid, n.p.o. at midnight Lines: PIV CODE STATUS:Full code Assessment and plan discussed with my senior resident Dr. Gray & attending physician Dr. Gabriel Senior (PGY-1)- Internal medicine resident Attending Provider Attestation/Addendum I, Augusta Rios, DO, attest that I was physically present for the [place] portions of the service and evaluated the patient with the resident and I reviewed and discussed the case with the resident and agree with the resident's findings and plans of care as documented above Patient seen and evaluated this AM. Requesting for Dilaudid to be scheduled even when she is asleep. She continues to have pain in her epigastric region. Plan for cholecystectomy in AM. Will place n.p.o. after midnight. Will not increase hydrocodone dose at this time which was explained to patient. Due to allergy to albuterol, will give budesonide scheduled as patient reports having asthma secondary to black mold exposure in the past.
--- NOTE | 2024-10-22 20:54 | PD.IMPROG ---
Documentation for date of: 10/22/24 Subjective Subjective Interval history: Spoke with Dr. Denny Surgical intervention that is laparoscopic versus open cholecystectomy tomorrow Nursing staff made aware that no need for a repeat EGD Exam Vital Signs Temp Pulse Resp BP Pulse Ox O2 Del Method O2 Flow Rate 98.7 F 97 18 124/72 90 L Nasal Cannula 2 10/22/24 20:00 10/22/24 20:00 10/22/24 20:00 10/22/24 20:00 10/22/24 20:00 10/22/24 20:00 10/22/24 20:00 Objective Labs 10/22/24 04:47 10/22/24 04:47 Labs: Laboratory Results - last 24 hr 10/22/24 04:47 WBC 13.4 H RBC 3.97 L Hgb 11.9 L Hct 34.6 L MCV 87 MCH 30.0 MCHC 34.4 RDW Std Deviation 41.3 Plt Count 255 Neut % (Auto) 85 H Lymph % (Auto) 9 L Mayes % (Auto) 6 Eos % (Auto) 0 Baso % (Auto) 0 Neut # (Auto) 11.4 H Lymph # (Auto) 1.2 Mayes # (Auto) 0.7 Eos # (Auto) 0.0 Baso # (Auto) 0.0 Immature Gran # (Auto) 0.06 H Absolute Nucleated RBC 0.00 Immature Gran % 0 Nucleated RBC % 0 Sodium 135 L Potassium 3.7 Chloride 100 Carbon Dioxide 27.4 Anion Gap 8 BUN 11 Creatinine 0.8 Estim Creat Clear Calc 88.7 eGFR > 60 BUN/Creatinine Ratio 14 Glucose 137 H Calculated Osmolality 271 L Calcium 9.4 Corrected Calcium 9.4 Total Bilirubin 0.3 AST 11 ALT 16 Alkaline Phosphatase 76 Total Protein 6.5 Albumin 4.0 Globulin 2.5 Albumin/Globulin Ratio 1.6 Impressions Impression: # Biliary pancreatitis # Symptomatic gallbladder disease # Gastric ulcer with visible blood vessel requiring endoscopic intervention # Pain abdomen and chest pain secondary to above Plan Surgical intervention in a.m. Assessment & Plan A&P Narrative # Acute gallstone pancreatitis Recommend either inpatient or outpatient laparoscopic versus open cholecystectomy # Dysphagia with atypical chest pain and abnormal CT scan showing thickening of the distal esophageal wall Informed consent obtained for fiberoptic esophagogastroduodenoscopy with either guidewire savory dilatation or endoscopic balloon dilatation under intravenous moderate sedation with biopsies and therapeutic intervention scheduled for tomorrow Clear liquid diet till 11 AM tomorrow Further evaluation after above Thank you very much for the opportunity to participate in the care of this patient Time Spent With Patient Time: Total time spent is greater than 50% in coordination of care (as documented) at patient's floor/unit and/or counseling patient:
[2024-10-22] MEDS: MELATONIN 3 MG TABLET PO (21:33)
[2024-10-23] VITALS (20 sets, daily range): BP systolic 117–147; BP diastolic 73–83; PULSE 84–108; RESP 12–21; TEMP 36.1–37.7; O2SAT 92–99; BMI 32.3
[2024-10-23] MEDS: HYDROmorphone INJ 2 MG/ML VIAL 0.5 MG IVP (05:28)
[2024-10-23 05:58] LABS: Basophils % (Auto) 0 % (0-2.5); Eosinophils % (Auto) 0 % (0-10); Hematocrit 34.7 % (36.0-46.0); Immature Granulocytes % (Auto) 1 % (0-0); Immature Granulocytes Auto 0.09 Thou/mm3 (0.00-0.00); Lymphocytes # (Auto) 1.9 Thou/mm3 (1.0-4.8); Lymphocytes % (Auto) 15 % (10-50); Mean Corpuscular HGB Conc 34.6 g/dl (31.0-37.0); Mean Corpuscular Hemoglobin 30.5 pg (25.0-35.0); Mean Corpuscular Volume 88 fL (80-100); Monocytes # (Auto) 1.1 Thou/mm3 (0.0-0.8); Monocytes % (Auto) 9 % (0-12); Neutrophils # (Auto) 9.3 Thou/mm3 (1.8-7.7); Neutrophils % (Auto) 75 % (37-80); Nucleated Red Blood Cell % 0 /100 WBC (0); Platelet Count 280 Thou/mm3 (140-440); RDW Standard Deviation 42.2 fL (36.4-46.3); Red Blood Count 3.94 Miln/mm3 (4.00-5.20); White Blood Count 12.4 Thou/mm3 (3.6-11.0)
[2024-10-23 06:34] LABS: Alanine Aminotransferase 17 U/L (10-49); Albumin, Serum 3.9 gm/dL (3.5-5.0); Albumin/Globulin Ratio 1.6 (1.2-2.2); Alkaline Phosphatase 74 U/L (46-116); Anion Gap 8 (7-16); Aspartate Amino Transferase 10 U/L (0-34); BUN/Creatinine Ratio 13 Ratio (12-20); Bilirubin,Total 0.4 mg/dL (0.3-1.2); Blood Urea Nitrogen 12 mg/dL (9-23); Calcium (Corrected) 9.1 mg/dL (8.5-10.1); Carbon Dioxide 29.7 mMol/L (20.0-31.0); Chloride 99 mMol/L (98-107); Creatinine (Component) 0.9 mg/dL (0.6-1.3); Estimated Creatinine Clearance 78.3 mL/min (>60); Globulin 2.5 gm/dL (2.3-3.5); Glucose 121 mg/dL (74-106); Osmolality,Calculated 274 (275-295); Potassium 3.6 mMol/L (3.4-5.1); Sodium 137 mMol/L (136-145); Total Protein 6.4 gm/dL (5.7-8.2); eGFR > 60 See Note
[2024-10-23] MEDS: BUDESONIDE RT 0.5 MG/2 ML NEBU INH ×2 (06:57→18:50)
--- NOTE | 2024-10-23 09:32 | PC.SS ---
SS follow up note; Patient is currently pending surgery.
--- NOTE | 2024-10-23 10:03 | ESPR_ITS ---
<Statement entered by Ruth Yin MD - 10/24/24 19:03> The patient is evaluated by me along with resident physician appears to be clinically stable not have any problems underwent cholecystectomy with no complications. Treatment plan is reviewed agree with treatment plan recommendation as per PGY [address] Matamoros Documentation for date of: 10/23/24 Subjective Subjective Interval history: 10/21: No overnight events. Patient is seen and examined at bedside patient continues to complain of severe epigastric pain requiring Dilaudid every 4 hours. Patient also complains of lower abdominal pain denies any dysuria. Patient was able to urinate and denies any hematuria. Patient states that she has not had a bowel movement since last Tuesday and requested liquid stool softener because she is unable to swallow. Patient also complains of sharp chest pain that comes and goes and lasts approximately 10 to 15 seconds. Patient also states that she has a history of asthma in the childhood which is exacerbated when exposed to black mold. Currently patient feels like she needs asthma treatment because the nasal cannula oxygen is not helping very much with breathing. Dr. Yin saw the patient this morning and Discussed with Dr. Ascencio as well who feel the patient may benefit from early surgery rather than deferred. will follow up with Dr. Denny if there is plan for cholecystectomy inpatient. patient has no other complaints. 10/22: Overnight patient continued to complain of pain this morning patient is seen and examined at bedside. She seems very agitated and continues to complain about severe epigastric pain. She states that after receiving budesonide breathing treatment last night her chest pain went away. Patient states that she cannot have DuoNebs with albuterol because she claims allergy, it causes her to have palpitations. Patient states that she previously has used budesonide nasal spray several times which works best for her and last night she received a dose. Patient also complained about plain and is requesting Dilaudid more often and scheduled. Patient is explained that Dilaudid is on as needed order and when she is in pain she would have to asked the nurse to see if it is time for the next dose. Patient states that no other medications work for her pain and demands that the nurse wakes her up to give her Dilaudid regardless of her being in pain or not. Spoke to Dr. Ascencio, who states the gastric ulcer have already been cauterized and there is no need for therapeutic endoscopy as it is already done. Dr. Denny has plans for cholecystectomy tomorrow patient will be n.p.o. at midnight. 10/23/2024: Patient was seen and examined at the bedside. She endorses epigastric discomfort and right upper quadrant pain with nausea. Vitals showed blood pressure stable and heart rate 101 bpm. Labs revealed improvement in leukocytosis. Hemoglobin stable. Chemistry panel was unremarkable. Blood glucose 121. Patient is undergoing surgery for laparoscopic cholecystectomy today by Dr. Denny. Agreeable to the plan and no new further cardiac recommendations. Exam Vital Signs Temp Pulse Resp BP Pulse Ox O2 Del Method O2 Flow Rate 97.4 F 101 H 18 121/76 98 Nasal Cannula 2 10/23/24 08:00 10/23/24 09:46 10/23/24 08:00 10/23/24 09:46 10/23/24 08:00 10/23/24 08:00 10/23/24 08:00 Narrative Exam GENERAL APPEARANCE: Patient is AOx3, obese appearing female in mild discomfort due to right upper quadrant pain HEENT: NC, AT. MMM. EOMI, clear conjunctiva, oropharynx clear. NECK: Supple without lymphadenopathy. No stiffness or restricted ROM. HEART: Regular rate and regular rhythm, normal S1/S2, no m/r/g LUNGS: CTAB, moving air well. No crackles or wheezes are heard. ABDOMEN: Soft, nontender, nondistended with good bowel sounds heard. BACK: No CVAT, no obvious deformity. EXTREMITIES: Without cyanosis, clubbing or edema. No lower extremity edema noticed. NEUROLOGICAL: Grossly nonfocal. Alert and oriented, moving all 4 extremities. CN not formally tested but appear grossly intact. Observed to ambulate with normal gait. Skin: Warm and dry without any rash. Psych: Mildly anxious however cooperative Objective Labs 10/23/24 05:14 10/23/24 05:14 Labs: Laboratory Results - last 24 hr 10/23/24 05:14 WBC 12.4 H RBC 3.94 L Hgb 12.0 Hct 34.7 L MCV 88 MCH 30.5 MCHC 34.6 RDW Std Deviation 42.2 Plt Count 280 Neut % (Auto) 75 Lymph % (Auto) 15 Hutchinson % (Auto) 9 Eos % (Auto) 0 Baso % (Auto) 0 Neut # (Auto) 9.3 H Lymph # (Auto) 1.9 Hutchinson # (Auto) 1.1 H Eos # (Auto) 0.0 Baso # (Auto) 0.0 Immature Gran # (Auto) 0.09 H Absolute Nucleated RBC 0.00 Immature Gran % 1 H Nucleated RBC % 0 Sodium 137 Potassium 3.6 Chloride 99 Carbon Dioxide 29.7 Anion Gap 8 BUN 12 Creatinine 0.9 Estim Creat Clear Calc 78.3 eGFR > 60 BUN/Creatinine Ratio 13 Glucose 121 H Calculated Osmolality 274 L Calcium 9.0 Corrected Calcium 9.1 Total Bilirubin 0.4 AST 10 ALT 17 Alkaline Phosphatase 74 Total Protein 6.4 Albumin 3.9 Globulin 2.5 Albumin/Globulin Ratio 1.6 Quality Measures Quality Measures VTE prophylaxis Assessment & Plan Assessment Current Active Medications: Generic Name Dose Route Start Last Admin Trade Name Freq PRN Reason Stop Dose Admin Al Hydrox/Mg Hydrox/Simethicone 15 ml 10/19/24 18:30 10/23/24 06:58 Mg Hyd/Al Hyd/Nam (Maalox Reg) Susp 30 Ml Udc PO 11/18/24 18:29 Not Given Q4HR TYRONE Budesonide 0.5 mg 10/22/24 10:45 10/23/24 06:57 Budesonide Rt 0.5 Mg/2 Ml Nebu INH 11/21/24 10:44 0.5 mg BIDRT TYRONE Administration Hydromorphone HCl 0.5 mg 10/21/24 11:12 10/23/24 05:28 Hydromorphone Inj 2 Mg/Ml Vial IVP 10/25/24 01:50 0.5 mg Q4HR PRN Administration PAIN SCALE 7-10 (Severe Hyoscyamine 0.25 mg 10/20/24 14:00 10/23/24 06:58 Hyoscyamine Sulf 0.125 Mg Tab.Subl PO 11/19/24 13:59 Not Given Q4HR TYRONE Isosorbide Dinitrate 5 mg 10/20/24 21:00 10/23/24 09:46 Isosorbide Dinitrate 10 Mg Tablet PO 11/19/24 20:59 Not Given BID TYRONE Lidocaine 1 patch 10/22/24 15:00 10/23/24 09:49 Lidocaine 5% 1 Patch TOP 11/21/24 14:59 Not Given QDAY [facility] Protocol Melatonin 3 mg 10/19/24 21:00 10/22/24 21:33 Melatonin 3 Mg Tablet PO 11/18/24 20:59 3 mg HS TYORNE Administration Ondansetron HCl 4 mg 10/18/24 04:22 10/18/24 08:55 Ondansetron Inj 2 Mg/Ml Inj 2 Ml IV 11/17/24 04:21 4 mg Q6H PRN Administration NAUSEA OR VOMITING Protocol Polyethylene Glycol 17 gm 10/21/24 10:45 10/23/24 09:49 Polyethylene Glycol 17 Gm Packet PO 11/20/24 10:44 Not Given QDAY TYRONE Sennosides 1 tab 10/18/24 09:00 10/23/24 09:49 Senna Tablet PO 11/17/24 08:59 Not Given QDAY TYRONE Protocol Sucralfate 1 gm 10/19/24 21:00 10/23/24 06:58 Sucralfate Susp 1 Gm/10 Ml Udc PO 11/18/24 20:59 Not Given QID TYRONE Plan This 59-year-old female with past medical history significant for asthma and mold allergy ,hypertension, hyperlipidemia, history of of esophageal dysmotility status post dilation with Dr. Ascencio presented to the ED complaining of worsening epigastric pain radiating to her back patient also states she has sensation of something stuck in her throat. Patient was in the ED recently for similar abdominal pain found to have cholelithiasis and was discharged home to be followed up outpatient management upon going home patient's epigastric pain worsened , patient was admitted for acute gastritis and possible however less likely gallstone pancreatitis treatment and management. Cardiology team consulted for concern for pericarditis. # Concern for ?pericarditis, ruled out # Esophageal dysmotility syndrome status post dilation # Chest pain versus epigastric pain # ?Pancreatitis # History of asthma and mold allergy # Elective laparoscopic cholecystectomy ?Patient presented with chief complaint of epigastric pain, bandlike radiates to the back worsened with laying down. Denied any history of smoking, alcohol use or recreational drug use. No history of trauma. No [id number] medications or herbs. CT scan abdomen revealed gastritis ultrasound of the liver showed cholelithiasis but not cholecystitis. Ultrasound gallbladder showed multiple gallstones. U tox was negative. ? Troponin I has been negative since admission ?Patient is making good urine output and hematocrit 33.8 ? Denied any cardiac history in the past. ? Allergic to molds and uses budesonide as needed ?IV fluid discontinued by primary care team ?Echocardiogram showed EF 60 to 65%. Mild AV sclerosis. ? EGD revealed grade B reflux esophagitis with no bleeding, nonerosive gastritis with erythema biopsies were taken and recommended by GI specialist to continue sucralfate 1 g 4 times daily, Protonix drip 8 mg/h and Maalox 15 mL Q4 hourly Plan: ? Patient stable from cardiology standpoint. ? General Surgery was consulted by primary care team and plan for laparoscopic cholecystectomy today due to persistent epigastric and right upper quadrant discomfort ? Pain management as needed ? Isosorbide dinitrate 5 mg twice daily for chest pain ? Continue PPI therapy # History of essential hypertension # History of hyperlipidemia ? Blood pressure well-controlled ? Patient denied taking any antihypertensive at home Plan: ? Monitor vitals closely and pain management as needed # Reactive leukocytosis # Esophageal stenosis post dilation # Erosive gastritis with erythema #Grade B reflux esophagitis with no bleeding and esophageal ulcers, biopsies taken per EGD findings # Hypokalemia # Normocytic anemia Rest of the management as per primary care team. Thank you very much for consulting cardiology team. Agreeable to the current plan for laparoscopic cholecystectomy today. Patient stable from cardiology standpoint. Plan of care discussed with regulatory internship, Dr. Humphrey Norman MD, PGY 2
--- NOTE | 2024-10-23 14:54 | ESOP_ITS ---
Date of Procedure 10/23/24 Pre Op Diagnosis Symptomatic cholelithiasis Post Op Diagnosis Cholelithiasis with cholecystitis Procedure Laparoscopic cholecystectomy Findings Moderately distended gallbladder with multiple gallstones and chronic cholecystitis Procedure Description Patient was brought into the operating room in supine position. After administration of general endotracheal anesthesia abdomen was prepped and draped in standard surgical manner. A Veress needle was inserted through the umbilicus and pneumoperitoneum was obtained up to 15 mmHg. The Veress needle was then removed, a 5 mm infraumbilical incision was made and the 5mm trocar was inserted. Laparoscopic camera was placed. Under direct visualization a laparoscopic camera a 10 mm trocar was placed in subxiphoid and two 5 mm trocars placed in right upper quadrant. The gallbladder was identified and was noted to be moderately distended with multiple gallstones and chronic cholecystitis. It was retracted cephalad and laterally. Dissection started near the infundibulum of gallbladder where cystic duct and gallbladder junction clearly identified. The cystic duct was circumferentially dissected off the peritoneum and surrounding inflammatory tissue. The critical view of safety was clearly demonstrated. Cystic duct was then divided between 2 endoclips proximally and one distally. The cystic artery was similarly dissected and divided. The gallbladder was then from the liver bed using electrocautery. The gallbladder was then placed inside an Endo Catch and removed from the abdomen utilizing subxiphoid trocar site. The area was copiously and thoroughly washed and irrigated, all the fluid was suctioned and the suction fluid returned clear. Hemostasis achieved using electrocautery. Endoclips noted be in place and intact without any bleeding or any leakage. Hemostasis was adequate and satisfactory. The subxiphoid trocar sites fascial defect was closed with 0 Vicryl using Endo Closure device. Instruments and trocars removed, pneumoperitoneum was evacuated and the incisions closed with 4-0 Monocryl in subcuticular fashion. Instrument needle and sponge counts were all reported to be correct X2. Patient tolerated the procedure well, was extubated, breathing spontaneously and without difficulty and was transferred to postanesthesia care in stable condition. Anesthesia GETA and local Pathology / specimen Other (Gallbladder and contents) Estimated Blood Loss 10 Condition Stable Disposition PACU Surgeon Oni Denny MD Surgical Staff Operation Date: 10/23/24 14:30 Case Staff [employer] SERVICE KITCHEN SUPERVISOR: Gerson Del Toro RNpoint of care technician: Bibiana Randall
--- NOTE | 2024-10-23 15:20 | SUR.PHASEI ---
1504 patient arrived to recovery room with oral airway in place, s/p lap henrietta, dermabond to abdomen, no bleeding noted, report received from Esmre DAVIS and Alverto GARCÍA. [address], pt allowed to sleep
[2024-10-23] MEDS: fentaNYL CIT INJ 50 mCg/ML AMP 2ML IV (15:34)
[2024-10-23] MEDS: ONDANSETRON INJ 2 MG/ML INJ 2 ML 4 MG IV (15:40)
--- NOTE | 2024-10-23 16:48 | SUR.PHASEI ---
1556 patient is awake, alert, breathing unlabored, no bleeding noted from abdomen, patient medicated as order for pain, report given to Mary Kay RN, patient transferred back to room 380
--- NOTE | 2024-10-23 17:50 | PC.NURSE ---
Pt,made aware of discharge order pt is refusing. Dr. Senior made aware and came and spoke to patient.
[2024-10-23] MEDS: SUCRALFATE SUSP 1 GM/10 ML UDC PO ×2 (18:23→21:47)
[2024-10-23] MEDS: MG HYD/AL HYD/SIME (Maalox Reg) SUSP 30 ML UDC 15 ML PO ×2 (18:24→21:46)
[2024-10-23] MEDS: HYOSCYAMINE SULF 0.125 MG TAB.SUBL 0.25 MG PO ×2 (18:24→21:47)
--- NOTE | 2024-10-23 19:06 | ESDS_ITS ---
<Statement entered by Augusta Rios DO - 10/24/24 13:58> I, Augusta Rios DO, attest that I was physically present for the [place] portions of the service and evaluated the patient with the resident and I reviewed and discussed the case with the resident and agree with the resident's findings and plans of care as documented above Planned Discharge Date 10/23/24 DS: Providers Provider Date of admission: 10/21/24 07:48 Primary care physician: Caren Kaba PA-C Admitting Provider: Endy Tran MD Attending Provider on Admission: Augusta Rios DO Consults: 10/18/24 06:40 Consult to Gastroenterology Stat Comment: Consulting Provider: Karlene Ascencio 10/18/24 11:34 Consult to General Surgery Stat Comment: Consulting Provider: Oni Denny 10/19/24 13:21 Consult to Cardiology Routine Comment: Consulting Provider: Ruth Yin Attending Provider on DC: Moose Senior MD Discharging Provider: Moose Senior MD DS: Diagnosis Problem List Completed Was Problem List Reviewed/Reconciled?: Yes Hospital Course Hospital Course Hospital course: Ms. Rogers is a 59-year-old female with past medical history significant for hypertension, hyperlipidemia, history of of esophageal dysmotility status post dilation with Dr. Ascencio who presented to the [facility] ED on 10/18/2024 complaining of worsening epigastric pain radiating to her back Patient also stated she had a sensation of something stuck in her throat. Patient was in the ED prior to this admission for similar abdominal pain and was found to have cholelithiasis and was discharged home to be followed up as an outpatient. Upon going home, patient's epigastric pain worsened for which she returned to the ED. CT abdomen revealed possible gastritis, ultrasound of the liver revealed cholelithiasis, but no cholecystitis. Ultrasound of gallbladder showed multiple gallstones therefore surgery was consulted for cholecystectomy. Patient was admitted for management of acute gastritis and cholecystectomy. EKG with normal sinus rhythm with first-degree AV block and left atrial enlargement, troponins were negative and cardiology was consulted, echo showed ejection fraction 60 to 65% with mild AV sclerosis. Per cardiology Dr. Yin recommendation patient was stable from cardiology standpoint. EGD findings included esophageal ulcers without bleeding. Esophageal dilation was also performed during the EGD by Dr. Ascencio. Over the course of hospitalization patient requested Dilaudid multiple times even required to be woken up from his sleep when it is time for next Dilaudid dose. Patient requested Dilaudid more often and scheduled. Patient also requested to be sent home with IV Dilaudid upon discharge. Patient often appeared comfortably resting but when staff members were present, she would often complain about pain. Patient had a cholecystectomy 10/23/2020, patient's symptoms were well-controlled, she is hemodynamically stable and comfortable and ready to be discharged home with p.o. pain meds. Follow up with general surgery Dr. Denny within 2 weeks. Follow up with GI Dr. Ascencio in 8 weeks. Take tramadol 50 mg as needed for pain every 6 hours. Start taking omeprazole 40 mg twice daily. Take Zofran 4 mg as needed for nausea and vomiting every 8 hours. Return to ED if symptoms recur or worsen. #Intractable chest and epigastric pain #Gastritis #Symptomatic Cholelithiasis #Gallstone pancreatitis, less likely #Gastric and esophageal ulcers #Atypical chest pain 2/2 above, pericarditis ruled out #Esophageal dysmotility s/p dilation #Primary hypertension #Hypokalemia-resolved Assessment and plan discussed with my senior resident Dr. Alfaro & attending physician Dr. Gabriel Senior (PGY-1)- Internal medicine resident Time Spent with Patient Time attestation: Total time spent providing and/or coordinating discharge services: >35min Exam Vital Signs Temp Pulse Resp BP Pulse Ox O2 Del Method O2 Flow Rate 97.3 F 88 18 134/76 H 92 L Room Air 2 10/23/24 17:30 10/23/24 17:30 10/23/24 17:30 10/23/24 17:30 10/23/24 17:30 10/23/24 17:30 10/23/24 16:30 Discharge Plan Plan Patient Disposition: HOME (Self Care) Care Plan Goals: Follow up with general surgery Dr. Denny within 2 weeks. Follow up with GI Dr. Ascencio in 8 weeks. Take tramadol 50 mg as needed for pain every 6 hours. Start taking omeprazole 40 mg twice daily. Take Zofran 4 mg as needed for nausea and vomiting every 8 hours. Return to ED if symptoms recur or worsen. Prescriptions/Referrals Prescriptions/Med Rec: New tramadol 50 mg tablet 50 mg PO Q6H MDD 200 mg PRN (Reason: pain) Qty: 15 0RF omeprazole 40 mg capsule,delayed release(DR/EC) 40 mg PO BID Qty: 60 0RF ondansetron 4 mg tablet,disintegrating 4 mg PO Q8H PRN (Reason: nausea and vomiting) Qty: 30 0RF sucralfate 100 mg/mL Suspension 1 g PO QID 30 Days Qty: 1200 0RF hyoscyamine sulfate 0.125 mg Tablet, Sublingual 0.25 mg PO Q4HR PRN (Reason: dyspepsia) 7 Days Qty: 20 0RF Referrals: Oni Denny MD [Physician] - Caren Kaba PA-C [Primary Care Provider] - Patient/Caregiver Discharge Instructions Discharge Activity: activity as tolerated Other Discharge Activity Instructions:: Avoid heavy lifting, no strenuous activity, no lifting, pushing or pulling for 4 weeks May shower in 24 hours May take over the counter laxitive if no bowel movement Education Materials: Preventing Surgical Site Infections Print Language: Uzbek Activity Restrictions/Additional Instructions: May shower. Avoid lifting, straining, pulling or pushing for 4 weeks. May take over the counter laxatives if no bowel movement in 2 days. Follow up with Dr. Denny in 2 weeks, call [phone] for an appointment. Continue low-fat diet for a week then advance diet as tolerated. Stand Alone Forms: Mary Award Info., Patient Portal Info Letter Quality Discharge Quality Measures VTE therapy
--- NOTE | 2024-10-23 19:13 | PC.NURSE ---
Addendum entered by Lesly Casey RN 10/23/24 20:21: 1930 Dr Ascencio ok for patient to be discharged tomorrow. Original Note: pt states how can i go home i have 2 handicap kids and stairs to climb, and without a ride to get medication Dr. Ascencio came and spoke to patient regarding discharge
--- NOTE | 2024-10-23 19:32 | ESPR_ITS ---
Documentation for date of: 10/23/24 Subjective Subjective Interval history: From a GI viewpoint patient can be discharged home Follow-up in 8 weeks in the office and then a repeat endoscopy in 12 weeks Patient is very reluctant to go home today in spite of my discussion Exam Vital Signs Temp Pulse Resp BP Pulse Ox O2 Del Method O2 Flow Rate 97.3 F 88 18 134/76 H 92 L Room Air 2 10/23/24 17:30 10/23/24 17:30 10/23/24 17:30 10/23/24 17:30 10/23/24 17:30 10/23/24 17:30 10/23/24 16:30 Objective Labs 10/23/24 05:14 10/23/24 05:14 Labs: Laboratory Results - last 24 hr 10/23/24 05:14 WBC 12.4 H RBC 3.94 L Hgb 12.0 Hct 34.7 L MCV 88 MCH 30.5 MCHC 34.6 RDW Std Deviation 42.2 Plt Count 280 Neut % (Auto) 75 Lymph % (Auto) 15 [place] % (Auto) 9 Eos % (Auto) 0 Baso % (Auto) 0 Neut # (Auto) 9.3 H Lymph # (Auto) 1.9 [place] # (Auto) 1.1 H Eos # (Auto) 0.0 Baso # (Auto) 0.0 Immature Gran # (Auto) 0.09 H Absolute Nucleated RBC 0.00 Immature Gran % 1 H Nucleated RBC % 0 Sodium 137 Potassium 3.6 Chloride 99 Carbon Dioxide 29.7 Anion Gap 8 BUN 12 Creatinine 0.9 Estim Creat Clear Calc 78.3 eGFR > 60 BUN/Creatinine Ratio 13 Glucose 121 H Calculated Osmolality 274 L Calcium 9.0 Corrected Calcium 9.1 Total Bilirubin 0.4 AST 10 ALT 17 Alkaline Phosphatase 74 Total Protein 6.4 Albumin 3.9 Globulin 2.5 Albumin/Globulin Ratio 1.6 Impressions Impression: # Status post laparoscopic cholecystectomy # Gastric ulcers requiring endoscopic intervention Continue current management From a GI viewpoint patient is cleared to go home but she is adamant of not leaving the hospital today Assessment & Plan A&P Narrative # Acute gallstone pancreatitis Recommend either inpatient or outpatient laparoscopic versus open cholecystectomy # Dysphagia with atypical chest pain and abnormal CT scan showing thickening of the distal esophageal wall Informed consent obtained for fiberoptic esophagogastroduodenoscopy with either guidewire savory dilatation or endoscopic balloon dilatation under intravenous moderate sedation with biopsies and therapeutic intervention scheduled for tomorrow Clear liquid diet till 11 AM tomorrow Further evaluation after above Thank you very much for the opportunity to participate in the care of this patient Time Spent With Patient Time: Total time spent is greater than 50% in coordination of care (as documented) at patient's floor/unit and/or counseling patient:
[2024-10-23] MEDS: ISOSORBIDE DINITRATE 10 MG TABLET 5 MG PO (21:47)
[2024-10-23] MEDS: MELATONIN 3 MG TABLET PO (21:47)
[2024-10-23] MEDS: DOCUSATE SOD 100 MG CAPSULE PO (21:47)
[2024-10-23] MEDS: HYDROMORPHONE HCL 2 MG TABLET PO (21:48)
[2024-10-24] VITALS (10 sets, daily range): BP systolic 111–145; BP diastolic 76–89; PULSE 74–98; RESP 17–21; TEMP 36.1–36.8; O2SAT 91–98
[2024-10-24] MEDS: HYDROMORPHONE HCL 2 MG TABLET PO ×2 (04:04→09:59)
[2024-10-24 05:46] LABS: Basophils % (Auto) 0 % (0-2.5); Eosinophils % (Auto) 0 % (0-10); Hematocrit 36.2 % (36.0-46.0); Hemoglobin 12.4 g/dL (12.0-16.0); Immature Granulocytes % (Auto) 1 % (0-0); Immature Granulocytes Auto 0.09 Thou/mm3 (0.00-0.00); Lymphocytes % (Auto) 7 % (10-50); Mean Corpuscular HGB Conc 34.3 g/dl (31.0-37.0); Mean Corpuscular Hemoglobin 29.5 pg (25.0-35.0); Mean Corpuscular Volume 86 fL (80-100); Monocytes # (Auto) 0.6 Thou/mm3 (0.0-0.8); Monocytes % (Auto) 4 % (0-12); Neutrophils # (Auto) 12.3 Thou/mm3 (1.8-7.7); Neutrophils % (Auto) 88 % (37-80); Nucleated Red Blood Cell % 0 /100 WBC (0); Platelet Count 313 Thou/mm3 (140-440)
[2024-10-24] MEDS: SUCRALFATE SUSP 1 GM/10 ML UDC PO ×3 (06:03→21:27)
[2024-10-24] MEDS: MG HYD/AL HYD/SIME (Maalox Reg) SUSP 30 ML UDC 15 ML PO ×5 (06:03→21:26)
[2024-10-24 06:33] LABS: Alanine Aminotransferase 50 U/L (10-49); Albumin, Serum 4.1 gm/dL (3.5-5.0); Albumin/Globulin Ratio 1.5 (1.2-2.2); Alkaline Phosphatase 83 U/L (46-116); Anion Gap 8 (7-16); Aspartate Amino Transferase 34 U/L (0-34); BUN/Creatinine Ratio 16 Ratio (12-20); Bilirubin,Total 0.4 mg/dL (0.3-1.2); Blood Urea Nitrogen 14 mg/dL (9-23); Calcium 9.4 mg/dL (8.3-10.6); Calcium (Corrected) 9.4 mg/dL (8.5-10.1); Carbon Dioxide 28.5 mMol/L (20.0-31.0); Chloride 99 mMol/L (98-107); Creatinine (Component) 0.9 mg/dL (0.6-1.3); Estimated Creatinine Clearance 77.6 mL/min (>60); Globulin 2.7 gm/dL (2.3-3.5); Glucose 155 mg/dL (74-106); Osmolality,Calculated 273 (275-295); Potassium 3.8 mMol/L (3.4-5.1); Sodium 135 mMol/L (136-145); Total Protein 6.8 gm/dL (5.7-8.2); eGFR > 60 See Note
--- NOTE | 2024-10-24 06:52 | PD.SURPROG ---
Documentation for date of: 10/24/24 Subjective Subjective Narrative: Patient is seen and examined. She is feeling much better. She is tolerating liquid diet without nausea or vomiting Exam Vital Signs Temp Pulse Resp BP Pulse Ox O2 Del Method O2 Flow Rate 97.3 F 81 20 137/77 H 92 L Room Air 2 10/24/24 04:00 10/24/24 04:00 10/24/24 04:00 10/24/24 04:00 10/24/24 04:00 10/24/24 04:00 10/23/24 16:30 Constitutional Constitutional: no acute distress Routine Abdominal Exam Abdominal: Present soft, normoactive bowel sounds and tenderness (Mild epigastric incisional tenderness. Incisions are clean, dry and intact); Absent distended Assessment & Plan Assessment Additional comments: Postop day #1 status post laparoscopic cholecystectomy Plan Advance to low-fat diet. May discharge home from surgical standpoint Procedures Procedures Laparoscopic cholecystectomy
[2024-10-24] MEDS: BUDESONIDE RT 0.5 MG/2 ML NEBU INH ×2 (07:25→18:55)
--- NOTE | 2024-10-24 08:28 | PC.NURSE ---
Pt. refusing bed alarm. Pt. educated on fall precautions and how to call for help. Pt. verbalizes understanding.
[2024-10-24] MEDS: POLYETHYLENE GLYCOL 17 GM PACKET PO (10:00)
[2024-10-24] MEDS: LIDOCAINE 5% 1 PATCH TOP (10:00)
[2024-10-24] MEDS: SENNA TABLET 1 TAB PO (10:00)
[2024-10-24] MEDS: HYOSCYAMINE SULF 0.125 MG TAB.SUBL 0.25 MG PO ×4 (10:00→21:27)
[2024-10-24] MEDS: DOCUSATE SOD 100 MG CAPSULE PO ×2 (10:00→21:26)
[2024-10-24] MEDS: ISOSORBIDE DINITRATE 10 MG TABLET 5 MG PO ×2 (10:01→21:26)
--- NOTE | 2024-10-24 10:40 | PC.NURSE ---
Dr. Jennings at bedside and orders for RN to perform oxygen test with patient. RN applied oxygen saturation monitor to pt. and provided pt. with walker. Pt. performed poorly, pt. did not make it out of the room before stopping and stating I am going to fall, I am in so much pain. Pt. safely returned to bed. While pt. was walking on RA, pt. oxygen was 88%, while sitting before ambulation on RA, pt. oxygen was 91%, once pt. returned to bed and connected to o2 monitor at bedside, pt. oxygen saturation was 87% on RA while sitting. Dr. Jennings aware, no new orders received. bed alarm in place.
--- NOTE | 2024-10-24 12:49 | XR_ITS ---
Examination: Abdomen AP single view Technique: AP portable supine abdomen, single view Exam date and time: October 24, 2024 1307 hours INDICATIONS: Vomiting status post laparoscopic cholecystectomy, history pancreatitis FINDINGS: Moderate stool in the right colon There are air distended small bowel loops in the left midabdomen No free air Surgical clips upper right abdomen IMPRESSION: Air distended loops in the left mid abdomen, consider CT scan abdomen pelvis post intravenous contrast follow-up
--- NOTE | 2024-10-24 13:55 | PC.SS ---
Addendum entered by Indu Vo 10/24/24 16:37: SW returned with GME Resident Dr. Senior. Dr. Senior explained X-ray result, discussed discharge plan, which is to return home with ambulance transportation to assist her with staircase. After discussing case with Dr. Keane, patient will remain in the hospital until she has a bowel movement, then proceed with D/C. Original Note: Line Service Person (KRYSTEN) Indu met with patient [id number] to discuss discharge plan. Patient reported not being able to ambulate. Original D/C plan, patient will return home.
[2024-10-24 14:01] LABS: Bilirubin,Direct 0.1 mg/dL (0.0-0.3)
[2024-10-24] MEDS: NA SU/NAHCO3/KC/PEG (Golytely) 4,000 ML BTL 1000 ML PO (14:45)
--- NOTE | 2024-10-24 18:32 | PD.RESPRO ---
Documentation for date of: 10/24/24 Subjective Subjective Interval history: 10/24: No overnight events. Patient is seen at bedside. Discussed with patient that she is medically cleared for discharge, including surgically cleared from Dr. Denny for discharge. Patient states she refused to be discharged home because she cannot take care of herself at home as she has children with special needs to take care of. Patient states that she cannot tolerate the pain and requires more pain management. Patient also states that she is unable to go home without oxygen although patient is saturating well on room air. patient also states that she is unable to go home because she is unable to stand for very long. Patient also complains about status post surgery pain that requires assistance. Patient also complained of nausea. child and family services specialist consulted her and assured her assisting with safe discharge home. Patient wants to be discharged to a skilled rehab facility. Patient requested PT evaluation before she is able to be discharged home, after PT evaluation patient was unable to stand although patient stated that she showered by herself today but with PT she was unable to stand. Patient also stated that she did not have a bowel movement for 8 days therefore KUB was ordered patient was also given GoLytely and prep for a bowel movement. Exam Vital Signs Temp Pulse Resp BP Pulse Ox O2 Del Method O2 Flow Rate 98.3 F 96 17 122/76 93 L Room Air 1 10/24/24 16:00 10/24/24 16:00 10/24/24 16:00 10/24/24 16:00 10/24/24 16:00 10/24/24 16:00 10/24/24 07:55 Narrative Exam GENERAL: A&Ox3 . Awake, mildy in distress due to pain in the epigastric region NEURO: no focal neurological deficits HEENT: Atraumatic, Normocephalic. mucous membranes moist. Eyes open, symmetrical, & clear HEART: Normal Heart Sounds LUNGS: Clear to auscultation ABDOMEN: soft, non-distended, non-tender, no guarding or rebound tenderness, lap henrietta surgical scar clean SKIN: No Rash or ecchymoses EXTREMITIES: No edema, tenderness, able to move all 4 extremities, pedal pulses palpated Objective Labs 10/25/24 05:35 10/25/24 05:35 Labs: Laboratory Results - last 24 hr 10/24/24 05:05 WBC 14.0 H RBC 4.20 Hgb 12.4 Hct 36.2 MCV 86 MCH 29.5 MCHC 34.3 RDW Std Deviation 40.0 Plt Count 313 D Neut % (Auto) 88 H Lymph % (Auto) 7 L [place] % (Auto) 4 Eos % (Auto) 0 Baso % (Auto) 0 Neut # (Auto) 12.3 H Lymph # (Auto) 1.0 [place] # (Auto) 0.6 Eos # (Auto) 0.0 Baso # (Auto) 0.0 Immature Gran # (Auto) 0.09 H Absolute Nucleated RBC 0.00 Immature Gran % 1 H Nucleated RBC % 0 Sodium 135 L Potassium 3.8 Chloride 99 Carbon Dioxide 28.5 Anion Gap 8 BUN 14 Creatinine 0.9 Estim Creat Clear Calc 77.6 eGFR > 60 BUN/Creatinine Ratio 16 Glucose 155 H Calculated Osmolality 273 L Calcium 9.4 Corrected Calcium 9.4 Total Bilirubin 0.4 Direct Bilirubin 0.1 AST 34 ALT 50 H Alkaline Phosphatase 83 Total Protein 6.8 Albumin 4.1 Globulin 2.7 Albumin/Globulin Ratio 1.5 Quality Measures Quality Measures VTE therapy Assessment & Plan Assessment Current Active Medications: Generic Name Dose Route Start Last Admin Trade Name Freq PRN Reason Stop Dose Admin Al Hydrox/Mg Hydrox/Simethicone 15 ml 10/19/24 18:30 10/24/24 17:30 Mg Hyd/Al Hyd/Nam (Maalox Reg) Susp 30 Ml Udc PO 11/18/24 18:29 15 ml Q4HR TYRONE Administration Budesonide 0.5 mg 10/22/24 10:45 10/24/24 07:25 Budesonide Rt 0.5 Mg/2 Ml Nebu INH 11/21/24 10:44 0.5 mg BIDRT TYRONE Administration Docusate Sodium 100 mg 10/23/24 21:00 10/24/24 10:00 Docusate Sod 100 Mg Capsule PO 11/22/24 20:59 100 mg BID TYRONE Administration Protocol Hyoscyamine 0.25 mg 10/20/24 14:00 10/24/24 17:29 Hyoscyamine Sulf 0.125 Mg Tab.Subl PO 11/19/24 13:59 0.25 mg Q4HR TYRONE Administration Isosorbide Dinitrate 5 mg 10/20/24 21:00 10/24/24 10:01 Isosorbide Dinitrate 10 Mg Tablet PO 11/19/24 20:59 5 mg BID TYRONE Administration Lidocaine 1 patch 10/22/24 15:00 10/24/24 10:00 Lidocaine 5% 1 Patch TOP 11/21/24 14:59 1 patch QDAY TYRONE Administration Protocol Melatonin 3 mg 10/19/24 21:00 10/23/24 21:47 Melatonin 3 Mg Tablet PO 11/18/24 20:59 3 mg HS TYRONE Administration Ondansetron HCl 4 mg 10/18/24 04:22 10/18/24 08:55 Ondansetron Inj 2 Mg/Ml Inj 2 Ml IV 11/17/24 04:21 4 mg Q6H PRN Administration NAUSEA OR VOMITING Protocol Polyethylene Glycol 17 gm 10/21/24 10:45 10/24/24 10:00 Polyethylene Glycol 17 Gm Packet PO 11/20/24 10:44 17 gm QDAY TYRONE Administration Sennosides 1 tab 10/18/24 09:00 10/24/24 10:00 Senna Tablet PO 11/17/24 08:59 1 tab QDAY TYRONE Administration Protocol Sucralfate 1 gm 10/19/24 21:00 10/24/24 17:23 Sucralfate Susp 1 Gm/10 Ml Udc PO 11/18/24 20:59 Not Given QID TYRONE Plan Ms. Rogers is a 59-year-old female with past medical history significant for hypertension, hyperlipidemia, history of of esophageal dysmotility status post dilation with Dr. sAcencio presented to the ED complaining of worsening epigastric pain radiating to her back patient also states she has sensation of something stuck in her throat. Patient was in the ED recently for similar abdominal pain found to have cholelithiasis and was discharged home to be followed up outpatient management upon going home patient's epigastric pain worsened , patient was admitted for acute gastritis and possible however less likely gallstone pancreatitis treatment and management. #Epigastric pain. #Adult abdominal pain #Cholelithiasis. # Status post lap henrietta -Patient presented with chief complaints of epigastric pain, bandlike, radiates to the back, getting worse by laying down -Patient denies any history of smoking, alcohol use, or any recreational drug use, no recent trauma, no [id number] medication or herbs -Labs revealed leukocytosis and elevated lipase 200 -CT abdomen revealed possible gastritis, ultrasound of the liver revealed cholelithiasis, but no cholecystitis -Ultrasoun of gallbladder-multiple gallstones -KUB findings include moderate stool in the colon and gas Plan: -PPI 40 IV twice daily. -Pepcid 20 Mg IV x 1 given -Dr. Ascencio was consulted, recommendations appreciated. -Surgery consulted, recommendations appreciated. -Status post lap henrietta -echo findings- LVEF 65%, trace mitral and trace tricuspid regurgitation , Mild AV sclerosis without stenosis. -Patient is given GoLytely #Hx of Asthma -Patient has history of asthma in childhood which recently was exacerbated by exposure to black mold Plan: ? Budesonide breathing treatments ordered -Solu-Medrol 40 Mg x 1 given on 10/21 #History of esophageal dysmotility s/p dilation. -Patient stated that she follows Dr. Ascencio -consulting Dr. Ascencio for Esophageal dysmotility, EGD scheduled for today. #History of primary hypertension. ?Blood pressure well-controlled. -Waiting med reconcile. #Hypokalemia, resolved. -Replaced -Monitor replace as needed Disposition: MedSurg s/p Laporscopic cholecystectomy DVT prophylaxis: SCDs GI prophylaxis: PPI IV Diet: Clear liquid Lines: PIV CODE STATUS:Full code Assessment and plan discussed with my attending physician Dr. Lakhwinder Senior (PGY-1)- Internal medicine resident Attending Provider Attestation/Addendum Patient complains of abdominal pain. She is afebrile. Her oxygen dropped while ambulating. Patient was unable to tolerate physical activity. She has chest discomfort feels like her esophagus is stretching. She feels like she is having a lot of cramping pain in the upper abdominal area. Abdominal x-ray showed right-sided fecal impaction. She has nausea and vomiting to r/o gallstone ileus. She said she had coffee grounds earlier. Hb stable. GoLytely 1000 ml given. Dilaudid was discontinued. Discussed with housestaff
--- NOTE | 2024-10-24 19:19 | PD.IMPROG ---
Documentation for date of: 10/24/24 Subjective Subjective Interval history: Very difficult and challenging patient's She is making other complaints as we speak There is no dysphagia Food is going down She is complaining of right sided abdominal pain which is mostly surgically related due to the recent laparoscopic cholecystectomy which I told her is not unusual KUB reviewed there is no small bowel obstruction pattern or colonic obstruction although there is some stool in the right colon which is not unusual as she has not gone to the bathroom that much Exam Vital Signs Temp Pulse Resp BP Pulse Ox O2 Del Method O2 Flow Rate 98.3 F 95 18 122/76 98 Room Air 1 10/24/24 16:00 10/24/24 18:58 10/24/24 18:58 10/24/24 16:00 10/24/24 18:58 10/24/24 16:00 10/24/24 07:55 Objective Labs 10/24/24 05:05 10/24/24 05:05 Labs: Laboratory Results - last 24 hr 10/24/24 05:05 WBC 14.0 H RBC 4.20 Hgb 12.4 Hct 36.2 MCV 86 MCH 29.5 MCHC 34.3 RDW Std Deviation 40.0 Plt Count 313 D Neut % (Auto) 88 H Lymph % (Auto) 7 L [place] % (Auto) 4 Eos % (Auto) 0 Baso % (Auto) 0 Neut # (Auto) 12.3 H Lymph # (Auto) 1.0 [place] # (Auto) 0.6 Eos # (Auto) 0.0 Baso # (Auto) 0.0 Immature Gran # (Auto) 0.09 H Absolute Nucleated RBC 0.00 Immature Gran % 1 H Nucleated RBC % 0 Sodium 135 L Potassium 3.8 Chloride 99 Carbon Dioxide 28.5 Anion Gap 8 BUN 14 Creatinine 0.9 Estim Creat Clear Calc 77.6 eGFR > 60 BUN/Creatinine Ratio 16 Glucose 155 H Calculated Osmolality 273 L Calcium 9.4 Corrected Calcium 9.4 Total Bilirubin 0.4 Direct Bilirubin 0.1 AST 34 ALT 50 H Alkaline Phosphatase 83 Total Protein 6.8 Albumin 4.1 Globulin 2.7 Albumin/Globulin Ratio 1.5 Impressions Impression: # Subjective complaints without objective evidence She is a very difficult patient For the benefit of the doubt because she has so much right-sided abdominal pain it may be due to stool impaction GoLytely flush Assessment & Plan A&P Narrative # Acute gallstone pancreatitis Recommend either inpatient or outpatient laparoscopic versus open cholecystectomy # Dysphagia with atypical chest pain and abnormal CT scan showing thickening of the distal esophageal wall Informed consent obtained for fiberoptic esophagogastroduodenoscopy with either guidewire savory dilatation or endoscopic balloon dilatation under intravenous moderate sedation with biopsies and therapeutic intervention scheduled for tomorrow Clear liquid diet till 11 AM tomorrow Further evaluation after above Thank you very much for the opportunity to participate in the care of this patient Time Spent With Patient Time: Total time spent is greater than 50% in coordination of care (as documented) at patient's floor/unit and/or counseling patient:
[2024-10-24] MEDS: bisacodyL 10 MG SUPP PR (19:47)
[2024-10-24] MEDS: NA SU/NAHCO3/KC/PEG (Golytely) 4,000 ML BTL 4000 ML PO (19:52)
[2024-10-24] MEDS: MELATONIN 3 MG TABLET PO (21:27)
[2024-10-25] VITALS: BP 111/59; PULSE 79; RESP 18; TEMP 36.4; O2SAT 93
[2024-10-25] MEDS: HYOSCYAMINE SULF 0.125 MG TAB.SUBL 0.25 MG PO ×3 (02:07→09:45)
[2024-10-25 04:00] VITALS: BP 128/80; PULSE 78; RESP 20; TEMP 36.2; O2SAT 95
--- NOTE | 2024-10-25 05:45 | PC.NURSE ---
Dr. Jose Guadalupe Chang was made aware about patient not having effective results from bowel management implemented this shift. No new orders received. said he'll let the day team know.
[2024-10-25] MEDS: MG HYD/AL HYD/SIME (Maalox Reg) SUSP 30 ML UDC 15 ML PO ×2 (05:55→09:48)
[2024-10-25] MEDS: SUCRALFATE SUSP 1 GM/10 ML UDC PO (05:55)
[2024-10-25 06:30] LABS: Basophils % (Auto) 0 % (0-2.5); Eosinophils # (Auto) 0.1 Thou/mm3 (0.0-0.5); Eosinophils % (Auto) 1 % (0-10); Hematocrit 33.3 % (36.0-46.0); Hemoglobin 11.5 g/dL (12.0-16.0); Immature Granulocytes % (Auto) 1 % (0-0); Immature Granulocytes Auto 0.09 Thou/mm3 (0.00-0.00); Lymphocytes # (Auto) 2.8 Thou/mm3 (1.0-4.8); Lymphocytes % (Auto) 22 % (10-50); Mean Corpuscular HGB Conc 34.5 g/dl (31.0-37.0); Mean Corpuscular Hemoglobin 30.3 pg (25.0-35.0); Mean Corpuscular Volume 88 fL (80-100); Monocytes % (Auto) 8 % (0-12); Neutrophils # (Auto) 8.6 Thou/mm3 (1.8-7.7); Neutrophils % (Auto) 68 % (37-80); Nucleated Red Blood Cell % 0 /100 WBC (0); Platelet Count 309 Thou/mm3 (140-440); RDW Standard Deviation 41.1 fL (36.4-46.3); Red Blood Count 3.79 Miln/mm3 (4.00-5.20); White Blood Count 12.6 Thou/mm3 (3.6-11.0)
[2024-10-25 06:47] LABS: Alanine Aminotransferase 44 U/L (10-49); Albumin, Serum 3.8 gm/dL (3.5-5.0); Albumin/Globulin Ratio 1.7 (1.2-2.2); Alkaline Phosphatase 71 U/L (46-116); Anion Gap 7 (7-16); Aspartate Amino Transferase 25 U/L (0-34); BUN/Creatinine Ratio 21 Ratio (12-20); Bilirubin,Total 0.3 mg/dL (0.3-1.2); Blood Urea Nitrogen 17 mg/dL (9-23); Calcium (Corrected) 9.2 mg/dL (8.5-10.1); Carbon Dioxide 32.6 mMol/L (20.0-31.0); Chloride 100 mMol/L (98-107); Creatinine (Component) 0.8 mg/dL (0.6-1.3); Estimated Creatinine Clearance 89.6 mL/min (>60); Globulin 2.3 gm/dL (2.3-3.5); Glucose 104 mg/dL (74-106); Osmolality,Calculated 280 (275-295); Potassium 3.6 mMol/L (3.4-5.1); Sodium 140 mMol/L (136-145); Total Protein 6.1 gm/dL (5.7-8.2); eGFR > 60 See Note
[2024-10-25] MEDS: BUDESONIDE RT 0.5 MG/2 ML NEBU INH (07:16)
[2024-10-25 07:17] VITALS: PULSE 100; PULSE 85; RESP 18; O2SAT 96; O2SAT 98
[2024-10-25 08:00] VITALS: BP 134/86; PULSE 85; RESP 18; TEMP 36.4; O2SAT 95
[2024-10-25] MEDS: LIDOCAINE 5% 1 PATCH TOP (09:45)
[2024-10-25 09:46] VITALS: BP 134/86; PULSE 85
[2024-10-25] MEDS: ISOSORBIDE DINITRATE 10 MG TABLET 5 MG PO (09:46)
[2024-10-25] MEDS: POLYETHYLENE GLYCOL 17 GM PACKET PO (09:47)
[2024-10-25] MEDS: SENNA TABLET 1 TAB PO (09:47)
[2024-10-25] MEDS: DOCUSATE SOD 100 MG CAPSULE PO (09:47)
[2024-10-25] MEDS: MAGNESIUM CITRATE 300 ML BTL PO (10:19)
--- NOTE | 2024-10-25 10:20 | PC.SS ---
Addendum entered by LUZMA Segal 10/25/24 12:55: Bed side nurse informed patient no longer needs transport as patient's friend at bed side to transport the patient home. Original Note: SS update: patient pending bowel movement prior to d/c. Patient informs she is to return home, confirmed address on face sheet. Patient indicates she will need transport back to her residence. Bed side nurse to notify home health care social worker when patient is ready for transport to be arranged.
[2024-10-25 12:00] VITALS: BP 100/74; PULSE 96; RESP 18; TEMP 36.3; O2SAT 94
--- NOTE | 2024-10-25 12:17 | PD.IMPROG ---
Documentation for date of: 10/25/24 Subjective Subjective Interval history: Patient evaluated There is not too much to offer from a GI viewpoint She needs to go home And be followed by the PCP Exam Vital Signs Temp Pulse Resp BP Pulse Ox O2 Del Method O2 Flow Rate 97.6 F 85 18 134/86 H 95 Nasal Cannula 1 10/25/24 08:00 10/25/24 09:46 10/25/24 08:00 10/25/24 09:46 10/25/24 08:00 10/25/24 08:00 10/25/24 08:00 Objective Labs 10/25/24 05:35 10/25/24 05:35 Labs: Laboratory Results - last 24 hr 10/24/24 10/25/24 05:05 05:35 WBC 12.6 H RBC 3.79 L Hgb 11.5 L Hct 33.3 L MCV 88 MCH 30.3 MCHC 34.5 RDW Std Deviation 41.1 Plt Count 309 Neut % (Auto) 68 Lymph % (Auto) 22 [place] % (Auto) 8 Eos % (Auto) 1 Baso % (Auto) 0 Neut # (Auto) 8.6 H Lymph # (Auto) 2.8 [place] # (Auto) 1.0 H Eos # (Auto) 0.1 Baso # (Auto) 0.0 Immature Gran # (Auto) 0.09 H Absolute Nucleated RBC 0.00 Immature Gran % 1 H Nucleated RBC % 0 Sodium 140 Potassium 3.6 Chloride 100 Carbon Dioxide 32.6 H Anion Gap 7 BUN 17 Creatinine 0.8 Estim Creat Clear Calc 89.6 eGFR > 60 BUN/Creatinine Ratio 21 H Glucose 104 D Calculated Osmolality 280 Calcium 9.0 Corrected Calcium 9.2 Total Bilirubin 0.3 Direct Bilirubin 0.1 AST 25 ALT 44 Alkaline Phosphatase 71 Total Protein 6.1 Albumin 3.8 Globulin 2.3 Albumin/Globulin Ratio 1.7 Impressions Impression: # Pain abdomen status post laparoscopic cholecystectomy # Gastric ulcer status post endoscopic intervention Okay to discharge home from a GI viewpoint Assessment & Plan A&P Narrative # Acute gallstone pancreatitis Recommend either inpatient or outpatient laparoscopic versus open cholecystectomy # Dysphagia with atypical chest pain and abnormal CT scan showing thickening of the distal esophageal wall Informed consent obtained for fiberoptic esophagogastroduodenoscopy with either guidewire savory dilatation or endoscopic balloon dilatation under intravenous moderate sedation with biopsies and therapeutic intervention scheduled for tomorrow Clear liquid diet till 11 AM tomorrow Further evaluation after above Thank you very much for the opportunity to participate in the care of this patient Time Spent With Patient Time: Total time spent is greater than 50% in coordination of care (as documented) at patient's floor/unit and/or counseling patient:
--- NOTE | 2024-10-25 16:01 | ESDS_ITS ---
Planned Discharge Date 10/25/24 DS: Providers Provider Date of admission: 10/21/24 07:48 Primary care physician: Caren Kaba PA-C Admitting Provider: Endy Tran MD Attending Provider on Admission: Rosalio Keane MD Consults: 10/18/24 06:40 Consult to Gastroenterology Stat Comment: Consulting Provider: Karlene Ascencio 10/18/24 11:34 Consult to General Surgery Stat Comment: Consulting Provider: Oni Denny 10/19/24 13:21 Consult to Cardiology Routine Comment: Consulting Provider: Ruth Yin 10/24/24 15:00 Referral Physical Therapy Stat Comment: Physician Instructions: Attending Provider on DC: Moose Senior MD Discharging Provider: Moose Senior MD DS: Diagnosis Problem List Completed Was Problem List Reviewed/Reconciled?: Yes Hospital Course Hospital Course Hospital course: Ms. Rogers is a 59-year-old female with past medical history significant for hypertension, hyperlipidemia, history of of esophageal dysmotility status post dilation with Dr. Ascencio who presented to the [facility] ED on 10/18/2024 complaining of worsening epigastric pain radiating to her back Patient also stated she had a sensation of something stuck in her throat. Patient was in the ED prior to this admission for similar abdominal pain and was found to have cholelithiasis and was discharged home to be followed up as an outpatient. Upon going home, patient's epigastric pain worsened for which she returned to the ED. CT abdomen revealed possible gastritis, ultrasound of the liver revealed cholelithiasis, but no cholecystitis. Ultrasound of gallbladder showed multiple gallstones therefore surgery was consulted for cholecystectomy. Patient was admitted for management of acute gastritis and cholecystectomy. EKG with normal sinus rhythm with first-degree AV block and left atrial enlargement, troponins were negative and cardiology was consulted, echo showed ejection fraction 60 to 65% with mild AV sclerosis. Per cardiology Dr. Yin recommendation patient was stable from cardiology standpoint. EGD findings included esophageal ulcers without bleeding. Esophageal dilation was also performed during the EGD by Dr. Ascencio. Over the course of hospitalization patient requested Dilaudid multiple times even required to be woken up from his sleep when it is time for next Dilaudid dose. Patient requested Dilaudid more often and scheduled. Patient also requested to be sent home with IV Dilaudid upon discharge. Patient often appeared comfortably resting but when staff members were present, she would often complain about pain. Patient had a cholecystectomy 10/23/2020. Patient stated she had not had a bowel movement in over a week therefore KUB was ordered which showed normal small bowel obstruction pattern or colonic obstruction but showed stool in the right colon. Patient was given enemas, GoLytely, MiraLAX and magnesium citrate was given and patient had a large bowel movement. Patient symptoms resolved patient is clinically and patient is hemodynamically stable for discharged home. Follow up with general surgery Dr. Denny within 2 weeks. Follow up with GI Dr. Ascencio in 8 weeks. Take tramadol 50 mg as needed for pain every 6 hours. Start taking omeprazole 40 mg twice daily. Take Zofran 4 mg as needed for nausea and vomiting every 8 hours. Return to ED if symptoms recur or worsen. #Intractable chest and epigastric pain #Gastritis #Symptomatic Cholelithiasis #Gallstone pancreatitis, less likely #Gastric and esophageal ulcers #Atypical chest pain 2/2 above, pericarditis ruled out #Esophageal dysmotility s/p dilation #Primary hypertension #Hypokalemia-resolved Assessment and plan discussed with my attending physician Dr. Lakhwinder Senior (PGY-1)- Internal medicine resident Time Spent with Patient Time attestation: Total time spent providing and/or coordinating discharge services: Exam Vital Signs Temp Pulse Resp BP Pulse Ox O2 Del Method O2 Flow Rate 97.6 F 85 18 134/86 H 95 Nasal Cannula 1 10/25/24 08:00 10/25/24 09:46 10/25/24 08:00 10/25/24 09:46 10/25/24 08:00 10/25/24 08:00 10/25/24 08:00 Discharge Plan Plan Patient Disposition: HOME (Self Care) Care Plan Goals: Follow up with general surgery Dr. Denny within 2 weeks. Follow up with GI Dr. Ascencio in 8 weeks. Take tramadol 50 mg as needed for pain every 6 hours. Start taking omeprazole 40 mg twice daily. Take Zofran 4 mg as needed for nausea and vomiting every 8 hours. Return to ED if symptoms recur or worsen. Prescriptions/Referrals Prescriptions/Med Rec: New hyoscyamine sulfate 0.125 mg Tablet, Sublingual 0.25 mg PO Q4HR PRN (Reason: dyspepsia) 7 Days Qty: 20 0RF hyoscyamine sulfate 0.125 mg tablet 0.25 mg PO Q4H PRN (Reason: dyspepsia) Qty: 30 0RF omeprazole 40 mg capsule,delayed release(DR/EC) 40 mg PO BID Qty: 60 0RF ondansetron HCl 4 mg tablet 4 mg PO Q8H PRN (Reason: nausea and vomiting) Qty: 30 0RF sucralfate 1 gram tablet 1 g PO QID Qty: 90 0RF tramadol 50 mg tablet 50 mg PO Q6H PRN (Reason: pain) Qty: 14 0RF Referrals: Oni Denny MD [Physician] - Caren Kaba PA-C [Primary Care Provider] - Patient/Caregiver Discharge Instructions Discharge Activity: activity as tolerated Other Discharge Activity Instructions:: Avoid heavy lifting, no strenuous activity, no lifting, pushing or pulling for 4 weeks May shower in 24 hours May take over the counter laxitive if no bowel movement Education Materials: Preventing Surgical Site Infections Print Language: Bangladeshi Activity Restrictions/Additional Instructions: May shower. Avoid lifting, straining, pulling or pushing for 4 weeks. May take over the counter laxatives if no bowel movement in 2 days. Follow up with Dr. Denny in 2 weeks, call [phone] for an appointment. Continue low-fat diet for a week then advance diet as tolerated. Stand Alone Forms: Mary Award Info., Patient Portal Info Letter Discharge Order Discharge Orders: Discharge (Routine); Ordered 10/25/24 Ordered By: Finn Gray Quality Discharge Quality Measures VTE therapy Attestestation Attestation I discussed with and supervised the resident physician who took care of this patient. I agree with the assessment and discharge plan as above. Return to the emergency room or contact primary care provider for recurrent symptoms. Risks for noncompliance discussed.
--- NOTE | 2024-10-25 20:35 | ESPR_ITS ---
RE: DEONTE ROGERS : 1965 DATE OF SERVICE: 10/24/2024 SUBJECTIVE: Deonte Rogers is a 59-year-old lady admitted to the hospital with multiple symptoms including gallstone pancreatitis and also sharp chest pain, noncardiac chest pain, epigastric pain as well. She underwent gallbladder surgery. She is still having a lot of pain, but it was much better. Complains of some shoulder pain today, but not having any chest pain or epigastric pain. Still having some constipation today. She does not complain of any cardiovascular limitation symptoms, but otherwise feeling well. OBJECTIVE: General: She is alert, awake, and in no acute distress. Vital Signs: Remained stable. Blood pressure 130/80, pulse rate is 85, respirations _16 , temperature normal, saturations _98 % . Neck: Supple. No JVD . Chest: Clear. Lungs: Decreased breath sounds. No rales. Cardiac: S1 and S2 regular_ . Abdomen: Soft and nontender. Extremities: No edema. ASSESSMENT: 1. The patient is status post cholecystectomy. 2. Acute pancreatitis, improving. 3. Atypical chest and back pain, noncardiac in nature, improving. RECOMMENDATIONS: The patient is doing quite well from cardiovascular point . Her pain is definitely not cardiac in nature. The patient has constipation. Otherwise, no other symptoms at this time. If the patient remains stable, she can be discharged home in a day or two. DT: 17:46:27 TT: 19:52:00 Ref: [id number] - TID: [id number] [facility]
== END 2024-10-25 12:47 | disposition home or self-care (01) | DRG 417 ==
LOC: SERX 10-18 04:07 → SERHOLD 10-18 04:52 → S3SX 10-18 09:42
PROVIDERS: Internal Medicine; Physician Assistant; Specialist; Student in an Organized Health Care Education/Training Program; Surgery; Admitting Provider Student in an Organized Health Care Education/Training Program; Emergency Provider Emergency Medicine; PCP Physician Assistant; Visit Provider Internal Medicine
PROC: 0DB18ZX Excision of Upper Esophagus, Via Natural or Artificial Opening Endoscopic, Diagnostic (ICD-10-PCS; CPT 43239; principal; 2024-10-19 15:30)
PROC: 0FT44ZZ Resection of Gallbladder, Percutaneous Endoscopic Approach (ICD-10-PCS; CPT 47562; principal; 2024-10-23 14:30)
DX: K80.10 Calculus of gallbladder with chronic cholecystitis without obstruction (principal); K29.61 Other gastritis with bleeding; K85.10 Biliary acute pancreatitis without necrosis or infection; K22.10 Ulcer of esophagus without bleeding; K25.3 Acute gastric ulcer without hemorrhage or perforation; K22.4 Dyskinesia of esophagus; K76.0 Fatty (change of) liver, not elsewhere classified; E87.6 Hypokalemia; Z88.5 Allergy status to narcotic agent; K21.00 Gastro-esophageal reflux disease with esophagitis, without bleeding; I10 Essential (primary) hypertension; K22.2 Esophageal obstruction; J45.909 Unspecified asthma, uncomplicated; K56.41 Fecal impaction
CPT/HCPCS: 36415; 71260; 74018; 74177; 76705; 80053; 80061; 80076; 82248; 83690; 83735; 84100; 84443; 84484; 85025; 85610; 85730; 93005; 93306; 94640; 94664; 96361; 96365; 96372; 96375; 97162; 99285; A4217; A4649; A9270; C1769; G0378; J0171; J0694; J1100; J1200; J1610; J1885; J2175; J2250; J2270; J2371; J2405; J2470; J2704; J2919; J3010; J3475; J3480; J3490; J7030; Q9967

== ENCOUNTER → 2024-11-06 | Outpatient (CLI) | payer BC, SELFPAY ==
--- NOTE | 2024-11-06 17:15 | XR_ITS ---
Examination: PA lateral chest 2 views Technique: Upright PA lateral chest 2 views Exam date and time: November 06, 2024 1725 hrs. Indications: Shortness of breath beginning one week ago. Findings: Prominent left lower lobe pneumonia Normal heart size The osseous structures are intact Impression: Prominent left lower lobe pneumonia
== END | disposition home or self-care (01) ==
PROVIDERS: PCP Registered Nurse; Referring Provider Registered Nurse; Visit Provider Registered Nurse
DX: J18.9 Pneumonia, unspecified organism (principal)
CPT/HCPCS: 71046

== ENCOUNTER → 2024-11-07 | Outpatient (CLI) | payer BC, SELFPAY ==
--- NOTE | 2024-11-07 15:42 | XR_ITS ---
Examination: CTA chest with intravenous contrast 2-D reconstructions 3-D reconstructions, vascular Date and time of exam: November 07, 2024 1644 hours Comparison October 18, 2024 INDICATIONS: Chest pain shortness of breath beginning 2 weeks ago CTDI: vol (mGy) 20.5 DLP: (mGycm) 411 Technique: Multiple axial sections of the thorax have been obtained. 3 mm slice thickness, from below the hemidiaphragms to above the apices of the lungs. Mediastinal and lung density settings have been obtained. 2-D sagittal and coronal reconstructions. 3-D angiographic renderings, 3-D volume renderings, 3D post processing, vascular maximum intensity projections obtained. Contrast administered is 100 cc Isovue-370. Low dose protocols were performed. One or more of the following dose reduction techniques were used; automated exposure control, adjustment of the mA and/or KV according to patient size, use of iterative reconstruction technique. Findings: Prominent isthmus of the thyroid image 11 Thoracic aorta is not enlarged, no dissection No enlargement pulmonary artery segments, no pulmonary artery emboli Mild left hilar lymphadenopathy Prominent left lower lobe pneumonia with mild left pleural fluid Fatty infiltration throughout the liver No visualized liver or splenic lesion Absent gallbladder No pancreatic mass Moderate thoracic spondylosis IMPRESSION: Prominent isthmus of the thyroid, recommend dedicated thyroid sonography follow-up Mild left hilar lymphadenopathy Negative for pulmonary artery emboli Prominent left lower lobe pneumonia, follow-up imaging recommended to document clearing.
== END | disposition home or self-care (01) ==
LOC: SCAT 14:02
PROVIDERS: PCP Physician Assistant; Referring Provider Registered Nurse; Visit Provider Registered Nurse
DX: R59.0 Localized enlarged lymph nodes (principal); J18.9 Pneumonia, unspecified organism; E07.89 Other specified disorders of thyroid
CPT/HCPCS: 71275; A4649; Q9967

== ENCOUNTER → 2024-11-09 | Outpatient (CLI) | payer BC, SELFPAY ==
--- NOTE | 2024-11-09 14:00 | XR_ITS ---
Examination: Retroperitoneal ultrasound, complete Technique: Multiple high resolution grayscale images of the retroperitoneum obtained, including kidneys and bladder. Exam date and time:November 09, 2024 1500 hours INDICATIONS: CT examination abdomen October 18, 2024 11 mm mass anterior right kidney FINDINGS: Right kidney 9.5 x 5.5 x 4.7 cm cortex 1.6 cm Left kidney 11.4 x 5.1 x 4.4 cm cortex 2.0 cm Mild renal parenchymal scar formation No solid renal mass lesion Contracted urinary bladder 21.7 cc IMPRESSION: No solid renal mass lesion noted
--- NOTE | 2024-11-09 14:38 | XR_ITS ---
Examination: Thyroid sonography complete TECHNIQUE: Grayscale sonographic images thyroid lobes with color flow analysis Exam date and time: November 09, 2024 1452 hours INDICATIONS: CT anterior chest study November 07, 2024 prominent isthmus of the thyroid FINDINGS: Right thyroid 5.0 x 1.2 x 1.9 cm Midpole 5 x 6 mm nodule Lower pole 8 x 7 mm nodule Isthmus is mildly prominent 0.5 cm in thickness Left thyroid 4.3 x 0.9 x 1.8 cm Upper pole nodule 5 x 5 mm IMPRESSION: Thyroid nodules as above, consider 6 month follow-up thyroid sonography
== END | disposition home or self-care (01) ==
PROVIDERS: PCP Physician Assistant; Referring Provider Physician Assistant; Visit Provider Physician Assistant
DX: E04.2 Nontoxic multinodular goiter (principal)
CPT/HCPCS: 76536; 76770

== ENCOUNTER → 2024-12-04 | Outpatient (CLI) | payer BC, SELFPAY ==
--- NOTE | 2024-12-04 16:00 | XR_ITS ---
Examination: PA lateral chest 2 views TECHNIQUE: Upright PA lateral chest 2 views Exam date and time: December 04, 2024 1612 hours Comparison November 06, 2024 INDICATIONS: Chest pain lower back pain beginning 2 months ago, left base pneumonia on chest film 2023 FINDINGS: Normal heart size. Lungs are clear. The osseous structures are intact IMPRESSION: No active disease
== END | disposition home or self-care (01) ==
PROVIDERS: PCP Physician Assistant; Referring Provider Physician Assistant; Visit Provider Physician Assistant
DX: R50.9 Fever, unspecified (principal)
CPT/HCPCS: 71046

== ENCOUNTER → 2025-03-07 | Outpatient (CLI) | payer BC, SELFPAY ==
[2025-03-07 14:35] LABS: HIV (1&2) Antibody Rapid Non-Reactive
[2025-03-07 14:47] LABS: Syphilis Nonreactive (Nonreactive)
[2025-03-07 14:59] LABS: RA Screen Negative (Negative)
[2025-03-07 15:10] LABS: Hepatitis A Antibody IgM Non Reactive (Non React); Hepatitis B Core Antibody IgM Non Reactive (Non React); Hepatitis B Surface Antigen Non Reactive (Non React); Hepatitis C Antibody Non Reactive (Non React)
[2025-03-16 15:36] LABS: Sjogren's antibody (SS-A) <1.0 NEG AI (<1.0 NEGATIVE); Sm Antibody <1.0 NEG AI (<1.0 NEGATIVE)
[2025-03-18 08:15] LABS: ANA Pattern NUCLEAR, SPECKLED; ANA Screen, IFA POSITIVE (NEGATIVE); Complement Component C3* 136 mg/dL (83-193); Complement Component C4c* 21 mg/dL (15-57); DNA (ds) Antibody* <1 IU/mL; Mitochondrial Ab NEGATIVE (NEGATIVE); Myocardial Ab, IF NEGATIVE (NEGATIVE); Scl-70 Antibody* <1.0 NEG AI (<1.0 NEGATIVE); Sjogren's Antibody (SS-B) <1.0 NEG AI (<1.0 NEGATIVE); Striated Muscle Ab NEGATIVE (NEGATIVE); Thyroid Peroxidase Antibodies* 4 IU/mL (<9)
[2025-03-18 08:16] LABS: Actin Antibody (IgG)* <20 U; Gastric Parietal Cell Ab* <20.0 U; HSV2 IgG Type Specific Ab <0.90 INDEX; Sm/RNP Antibody <1.0 NEG AI (<1.0 NEGATIVE)
== END | disposition home or self-care (01) ==
PROVIDERS: PCP Family Medicine; Referring Provider Physician Assistant; Visit Provider Physician Assistant
DX: E55.9 Vitamin D deficiency, unspecified (principal); Z20.2 Contact with and (suspected) exposure to infections with a predominantly sexual mode of transmission; M25.50 Pain in unspecified joint; R53.83 Other fatigue; R76.0 Raised antibody titer
CPT/HCPCS: 36415; 80074; 82306; 83516; 86015; 86038; 86160; 86225; 86235; 86255; 86376; 86430; 86695; 86696; 86703; 86780

== ENCOUNTER → 2025-03-20 | Outpatient (CLI) | payer BC, SELFPAY | END | disposition home or self-care (01) | LOC: SLDO 16:25 | PROVIDERS: PCP Physician Assistant; Referring Provider Physician Assistant; Visit Provider Physician Assistant | DX: L03.032 Cellulitis of left toe (principal) | CPT/HCPCS: 87070; 87205 ==

== ENCOUNTER → 2025-04-05 | Outpatient (CLI) | payer BC, SELFPAY ==
--- NOTE | 2025-04-05 16:20 | XR_ITS ---
Examination: Tibia-Fibula, right , 2 views Technique: Tibia-fibula AP lateral 2 views Date and time of exam: April 05, 2025 1601 hours INDICATIONS: Right lower leg pain beginning one month ago. FINDINGS: Mild to moderate osteopenia. No fracture or dislocation. No cortical bone destruction. IMPRESSION: No fracture or dislocation. No cortical bone destruction or foreign body
[2025-04-05 16:37] LABS: Collection Type, Urine Clean Catch
[2025-04-05 17:31] LABS: Basophils # (Auto) 0.1 Thou/mm3 (0.0-0.2); Basophils % (Auto) 1 % (0-2.5); Eosinophils # (Auto) 0.1 Thou/mm3 (0.0-0.5); Eosinophils % (Auto) 1 % (0-10); Hematocrit 40.4 % (36.0-46.0); Hemoglobin 13.7 g/dL (12.0-16.0); Immature Granulocytes % (Auto) 0 % (0-0); Immature Granulocytes Auto 0.03 Thou/mm3 (0.00-0.00); Lymphocytes # (Auto) 2.6 Thou/mm3 (1.0-4.8); Lymphocytes % (Auto) 31 % (10-50); Mean Corpuscular HGB Conc 33.9 g/dl (31.0-37.0); Mean Corpuscular Hemoglobin 28.9 pg (25.0-35.0); Mean Corpuscular Volume 85 fL (80-100); Monocytes # (Auto) 0.6 Thou/mm3 (0.0-0.8); Monocytes % (Auto) 7 % (0-12); Neutrophils # (Auto) 5.2 Thou/mm3 (1.8-7.7); Neutrophils % (Auto) 61 % (37-80); Nucleated Red Blood Cell % 0 /100 WBC (0); Platelet Count 321 Thou/mm3 (140-440); RDW Standard Deviation 43.1 fL (36.4-46.3); Red Blood Count 4.74 Miln/mm3 (4.00-5.20); White Blood Count 8.6 Thou/mm3 (3.6-11.0)
[2025-04-05 17:39] LABS: Bilirubin,Urine Negative (Negative); Blood,Urine Negative (Negative); Clarity,Urine Clear (Clear/Hazy); Color,Urine Lt-Yellow (Lt Yel-Yel); Culture Indicated,Urine Not Indicated; Glucose, Urine Negative (Negative); Ketones,Urine Negative (Negative); Leukocyte Esterase,Urine Negative (Negative); Nitrite,Urine Negative (Negative); PH,Urine 5.5 (5.0-7.0); Protein,Urine Negative (Neg - Trace); RBC,Urine < 1 /hpf (0-3); Specific Gravity,Urine 1.024 (1.001-1.035); Squamous Epithelial Cell,Urine < 1 /hpf (0-5); Urobilinogen,Urine Negative mg/dL (0.0-1.0); WBC,Urine < 1 /hpf (0-5)
[2025-04-05 17:56] LABS: Amylase 52 U/L (30-118); Lipase 53 U/L (12-53)
[2025-04-15 07:34] LABS: ANA Screen, IFA POSITIVE (NEGATIVE); ANA Titer 1:40 titer
== END | disposition home or self-care (01) ==
LOC: CDIM 15:41 → COPL 16:13
PROVIDERS: PCP Physician Assistant; Referring Provider Physician Assistant; Visit Provider Radiology Diagnostic Radiology
DX: M79.604 Pain in right leg (principal); D72.829 Elevated white blood cell count, unspecified; R76.0 Raised antibody titer; R74.8 Abnormal levels of other serum enzymes; R80.9 Proteinuria, unspecified
CPT/HCPCS: 36415; 73590; 81001; 82150; 83690; 85025; 86038

== ENCOUNTER → 2025-04-15 | Outpatient (CLI) | payer BC, SELFPAY ==
[2025-04-15 17:12] LABS: Misc Send Out* See Sep Rpt
[2025-04-15 17:43] LABS: Basophils % (Auto) 0 % (0-2.5); Eosinophils # (Auto) 0.1 Thou/mm3 (0.0-0.5); Eosinophils % (Auto) 2 % (0-10); Hematocrit 38.5 % (36.0-46.0); Hemoglobin 13.3 g/dL (12.0-16.0); Immature Granulocytes % (Auto) 0 % (0-0); Immature Granulocytes Auto 0.01 Thou/mm3 (0.00-0.00); Lymphocytes # (Auto) 2.4 Thou/mm3 (1.0-4.8); Lymphocytes % (Auto) 35 % (10-50); Mean Corpuscular HGB Conc 34.5 g/dl (31.0-37.0); Mean Corpuscular Hemoglobin 29.3 pg (25.0-35.0); Mean Corpuscular Volume 85 fL (80-100); Monocytes # (Auto) 0.4 Thou/mm3 (0.0-0.8); Monocytes % (Auto) 5 % (0-12); Neutrophils % (Auto) 58 % (37-80); Nucleated Red Blood Cell % 0 /100 WBC (0); Platelet Count 276 Thou/mm3 (140-440); Red Blood Count 4.54 Miln/mm3 (4.00-5.20); White Blood Count 6.9 Thou/mm3 (3.6-11.0)
[2025-04-15 18:07] LABS: Sed Rate (ESR) 15 mm/hr (0-30)
[2025-04-15 18:18] LABS: Alanine Aminotransferase 29 U/L (10-49); Albumin, Serum 4.7 gm/dL (3.5-5.0); Alkaline Phosphatase 75 U/L (46-116); Anion Gap 12 (7-16); Aspartate Amino Transferase 30 U/L (0-34); BUN/Creatinine Ratio 11 Ratio (12-20); Bilirubin,Total 0.3 mg/dL (0.3-1.2); Blood Urea Nitrogen 11 mg/dL (9-23); C-Reactive Protein < 0.5 mg/dL (0.0-0.9); Calcium 9.1 mg/dL (8.3-10.6); Calcium (Corrected) 9.1 mg/dL (8.5-10.1); Chloride 109 mMol/L (98-107); Creatine Kinase 107 U/L (34-171); Globulin 2.4 gm/dL (2.3-3.5); Glucose 106 mg/dL (74-106); Osmolality,Calculated 291 (275-295); Potassium 3.3 mMol/L (3.4-5.1); Sodium 147 mMol/L (136-145); Total Protein 7.1 gm/dL (5.7-8.2); eGFR > 60 See Note
[2025-04-20 03:04] LABS: Cardiolipin Ab (IgA) <2.0 APL-U/mL; Cardiolipin Ab (IgG) <2.0 GPL-U/mL
[2025-04-23 07:01] LABS: Cardiolipin Ab (IgM) <2.0 MPL-U/mL; Complement Component C3* 140 mg/dL (83-193); Complement Component C4c* 24 mg/dL (15-57); DNA (ds) Antibody* <1 IU/mL; HLA-B27 Antigen* NEGATIVE (NEGATIVE)
== END | disposition home or self-care (01) ==
LOC: COPL 16:40
PROVIDERS: PCP Physician Assistant; Referring Provider Internal Medicine; Visit Provider Internal Medicine
DX: L56.8 Other specified acute skin changes due to ultraviolet radiation (principal); M25.50 Pain in unspecified joint; M51.362 Other intervertebral disc degeneration, lumbar region with discogenic back pain and lower extremity pain; M47.812 Spondylosis without myelopathy or radiculopathy, cervical region; M79.18 Myalgia, other site; R21 Rash and other nonspecific skin eruption; R53.83 Other fatigue; R76.8 Other specified abnormal immunological findings in serum
CPT/HCPCS: 36415; 80053; 82550; 85025; 85652; 86140; 86147; 86160; 86225; 86812; 86880